=== PATIENT | male | born 1935 | race African-American/Black ===

== ENCOUNTER 2017-08-19 14:47 | Emergency (ER) | payer MEDICARE, OTHER ==
--- NOTE | 2017-08-19 15:27 | ER Document Report ---
ED General - General Mode of Arrival: Ambulatory Information source: Patient TRAVEL OUTSIDE OF THE [place] IN LAST 30 DAYS: No <GALLITO RAMON - Last Filed: 08/19/17 16:37> <ANDRES GREENWOOD - Last Filed: 08/19/17 17:31> - General Chief Complaint: Low Blood Pressure Stated Complaint: WEAKNESS Notes: 82-year-old male presenting to the emergency department today with complaints of possible low blood pressure today taken by PT/OT. Patient states he feels fine and is asymptomatic. [id number] at bedside states that physical therapy and occupational therapy today both stated the patient had a low blood pressure and low blood sugar. Patient denies any chest pain, dysuria, cough, or general pain.f (GALLITO RAMON) - Related Data Allergies/Adverse Reactions: aspirin [Aspirin] Allergy (Unknown, Unverified 07/16/12 10:57) Past Medical History - General Information source: Patient - Social History Smoking Status: Never Smoker Cigarette use (# per day): No Chew tobacco use (# tins/day): No Frequency of alcohol use: None Drug Abuse: None Lives with: Family Family History: Reviewed & Not Pertinent Patient has suicidal ideation: No Patient has homicidal ideation: No - Past Medical History Cardiac Medical History: Reports: Hx Hypercholesterolemia, Hx Hypertension Endocrine Medical History: Reports: Hx Diabetes Mellitus Type 2 Psychiatric Medical History: Reports: Hx Depression Surgical Hx: Negative <GALLITO RAMON - Last Filed: 08/19/17 16:37> Review of Systems - Review of Systems Constitutional: No symptoms reported EENT: No symptoms reported Cardiovascular: See HPI, Other - hypotensive. denies: Chest pain Respiratory: denies: Cough Gastrointestinal: No symptoms reported Genitourinary: denies: Dysuria Male Genitourinary: No symptoms reported Musculoskeletal: No symptoms reported Skin: No symptoms reported Hematologic/Lymphatic: No symptoms reported Neurological/Psychological: No symptoms reported -: Yes All other systems reviewed and negative <GALLITO RAMON - Last Filed: 08/19/17 16:37> Physical Exam <GALLITO RAMON - Last Filed: 08/19/17 16:37> <ANDRES GREENWOOD - Last Filed: 08/19/17 17:31> - Vital signs Vitals: Resp BP Pulse Ox 12 107/61 99 08/19/17 14:51 08/19/17 14:51 08/19/17 14:51 - Notes Notes: Physical Exam: General: Alert, appears well. HEENT: Normocephalic. Atraumatic. PERRL. Extraocular movements intact. Oropharynx clear. Dry mucous membranes. Neck: Supple. Non-tender. Respiratory: No respiratory distress. Clear and equal breath sounds bilaterally. Cardiovascular: Regular rate and rhythm. Abdominal: Normal Inspection. Non-tender. No distension. Normal Bowel Sounds. Back: Non-tender. No deformity or step off. Extremities: Moves all four extremities. Upper extremities: Normal inspection. Normal ROM. Lower extremities: Normal inspection. No edema. Normal ROM. Neurological: Normal cognition. AAOx4. Normal speech. Psychological: Normal affect. Normal Mood. Skin: Warm. Dry. Normal color. (GALLITO RAMON) Course - Laboratory Result Diagrams: 08/19/17 14:30 08/19/17 14:30 <GALLITO RAMON - Last Filed: 08/19/17 16:37> - Laboratory Result Diagrams: 08/19/17 14:30 08/19/17 14:30 - EKG Interpretation by Fl EKG shows normal: Sinus rhythm Rate: Normal [place]/QRS: Left axis deviation Voltage: Decreased voltage When compared to previous EKG there are: Changes noted <ANDRES GREENWOOD - Last Filed: 08/19/17 17:31> - Re-evaluation Re-evalutation: 08/19/17 15:28 Well-appearing alert oriented and mental baseline per yjcegzuc-vu-vux at bedside. No recent illnesses denies any dizziness headache chest pain cough congestion abdominal pain dysuria numbness or tingling or weakness of upper lower extremities with sent who performs PTOT at his house weekly due to low blood pressure. In the emergency department he is not hypotensive. His membranes fluid bolus in progress. Will medically screen patient at this time. Will consider discharge if no acute abnormalities found. 08/19/17 17:27 Patient exam shows no acute abnormalities. He is able to ambulate without issue. His blood pressure is improved to 122/66 prior to discharge after fluid administration. Patient states that he wants to go home. I discussed with him and his son at bedside the need to stay hydrated especially during the hot summer months. Patient understands and agrees with plan. 08/19/17 17:29 Of note, patient did have nonspecific ST-T wave abnormality but this is from compared to EKG from 4 years ago. I discussed with patient and family need to follow-up with her family doctor for further evaluation. Patient exhibited no chest pain at this time no shortness of breath. Changes are comparison from 4 years ago. (ANDRES GREENWOOD) - Vital Signs Vital signs: Temp Pulse Resp BP Pulse Ox 97.6 F 18 105/54 L 99 08/19/17 15:04 08/19/17 16:16 08/19/17 16:16 08/19/17 16:16 - Laboratory Laboratory results interpreted by me: 08/19/17 08/19/17 08/19/17 14:30 14:30 16:22 RBC 3.88 L Hgb 12.9 L MCV 100 H Carbon Dioxide 19 L Est GFR (Non-Af Amer) 56 L Glucose 157 H ALT 12 L Urine Glucose (UA) 50 H Urine Blood SMALL H - EKG Interpretation by Me Additional EKG results interpreted by me: 08/19/17 17:[address]-T wave abnormalities when compared to EKG from August 03, 2013 ( ANDRES GREENWOOD) Discharge <GALLITO RAMON - Last Filed: 08/19/17 16:37> <ANDRES GREENWOOD - Last Filed: 08/19/17 17:31> - Discharge Clinical Impression: Dehydration Condition: Good Disposition: HOME, SELF-CARE Instructions: Dehydration ([facility]), Electrogram Abnormality ([facility]) Referrals: MARLEN DENTON MD [Primary Care Provider] - Follow up in 1 week (For reevaluation. Let them know that your EKG had some changes from prior 4 years ago) Scribe Attestation: 08/19/17 16:37 I personally performed the services described in the documentation, reviewed and edited the documentation which was dictated to the scribe in my presence, and it accurately records my words and actions. (GALLITO RAMON) Scribe Documentation - Scribe Written by Alexe:: Mary aJne Mendieta, 08/19/2017 1616 acting as scribe for :: Richard <GALLITO RAMON - Last Filed: 08/19/17 16:37>
[2017-08-19 15:34] LABS: ABSOLUTE EOSINOPHILS # (AUTO) 0.2 10^3/uL (0.0-0.6); ABSOLUTE LYMPHOCYTES (AUTO) 1.9 10^3/uL (0.5-4.7); ABSOLUTE MONOCYTES (AUTO) 0.7 10^3/uL (0.1-1.4); ABSOLUTE NEUT (AUTO) 3.2 10^3/uL (1.7-8.2); BASOPHILS % (AUTO) 0.8 % (0-2); HEMATOCRIT 38.7 % (37.9-51.0); HEMOGLOBIN 12.9 g/dL (13.5-17.0); LYMPHOCYTES % (AUTO) 31.9 % (13-45); MEAN CORPUSCULAR HEMOGLOBIN 33.2 pg (27.0-33.4); MEAN CORPUSCULAR HGB CONC 33.2 g/dL (32.0-36.0); MEAN CORPUSCULAR VOLUME 100 fl (80-97); MONOCYTES % (AUTO) 11.8 % (3-13); PLATELET COUNT 264 10^3/uL (150-450); RED BLOOD COUNT 3.88 10^6/uL (4.35-5.55); RED CELL DISTRIBUTION WIDTH 12.9 % (11.5-14.0); SEGMENTED NEUTROPHILS % (AUTO) 52.5 % (42-78); TOTAL CELLS COUNTED % (AUTO) 100 %
[2017-08-19 15:40] LABS: INTERNATIONAL RATION (INR) 1.06; PROTHROMBIN TIME 14.3 SEC (11.4-15.4)
[2017-08-19 16:03] LABS: ALANINE AMINOTRANSFERASE 12 U/L (21-72); ALBUMIN 3.5 g/dL (3.5-5.0); ALKALINE PHOSPHATASE 69 U/L (38-126); ANION GAP 14 (5-19); ASPARTATE AMINO TRANSFERASE 17 U/L (17-59); BILIRUBIN,DIRECT 0.3 mg/dL (0.0-0.4); BILIRUBIN,TOTAL 0.3 mg/dL (0.2-1.3); BLOOD UREA NITROGEN 12 mg/dL (7-20); CALCIUM 9.2 mg/dL (8.4-10.2); CARBON DIOXIDE 19 mmol/L (22-30); CHLORIDE 107 mmol/L (98-107); GLUCOSE 157 mg/dL (75-110); POTASSIUM 4.5 mmol/L (3.6-5.0); SODIUM 139.6 mmol/L (137-145); TOTAL PROTEIN 6.4 g/dL (6.3-8.2)
[2017-08-19 16:50] LABS: APPEARANCE,URINE CLEAR; BILIRUBIN,URINE NEGATIVE (NEGATIVE); COLOR,URINE YELLOW; GLUCOSE, URINE 50 mg/dL (NEGATIVE); KETONES,URINE NEGATIVE (NEGATIVE); LEUKOCYTE ESTERASE,URINE NEGATIVE (NEGATIVE); NITRITE,URINE NEGATIVE (NEGATIVE); PROTEIN,URINE NEGATIVE (NEGATIVE); URINE SPECIFIC GRAVITY 1.009; UROBILINOGEN,URINE NEGATIVE mg/dL (<2.0)
[2017-08-19 17:28] VITALS: BP 122/66
--- NOTE | 2017-08-20 06:09 | EKG REPORT ---
SEVERITY:- ABNORMAL ECG - SINUS RHYTHM FIRST DEGREE AV BLOCK INFERIOR INFARCT, AGE INDETERMINATE OLD TRUE POST MS : Confirmed by: Yoel Cardenas MD 20-Aug-2017 06:08:48
== END 2017-08-19 17:39 | disposition home or self-care (01) ==
LOC: ER 14:47
DX: E86.0 Dehydration (principal); E11.9 Type 2 diabetes mellitus without complications; I10 Essential (primary) hypertension; R94.31 Abnormal electrocardiogram [ECG] [EKG]; Z88.6 Allergy status to analgesic agent
CPT/HCPCS: 36415; 80053; 81001; 83735; 84484; 85025; 85610; 93005; 93010; 99285

== ENCOUNTER → 2018-05-01 | Outpatient (CLI) | payer MEDICARE, OTHER ==
--- NOTE | 2018-05-01 18:49 | RADIOLOGY REPORT (SQ) ---
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 TECHNIQUE: Multiplanar imaging includes non-contrasted T1, T2, FLAIR, and diffusion with ADC map seq uences. Images stored on PACS. LIMITATIONS: None. FINDINGS: ANATOMY: No anomalies. Normal vascular flow voids. Pituitary fossa normal. CSF SPACES: Normal in size and contour. No hemorrhage. CEREBRUM: Mild cortical atrophy. There are areas of increased white matter signal on FLAIR imaging. No evidence of hemorrhage, mass, or extraaxial fluid collection. POSTERIOR FOSSA: No signal alteration. No hemorrhage. No edema, masses or mass effect. Internal jazmin tory canals, cerebello-pontine angles, mastoids normal. DIFFUSION IMAGING: Negative for acute or sub-acute infarction. ORBITS: No masses. Globes normal. PARANASAL SINUSES: No fluid levels. Mucosa normal. OTHER: No other significant finding. IMPRESSION: Involutional changes of aging with chronic microvascular ischemia and with no acute intr acranial imaging findings. EVIDENCE OF ACUTE STROKE: NO. TECHNICAL DOCUMENTATION: JOB ID: [id number] [employer]- All Rights Reserved Reading location - IP/workstation name: [email or web address]
== END ==
LOC: RAD 16:57
PROVIDERS: ATTEND Internal Medicine
DX: G46.3 Brain stem stroke syndrome (principal)
CPT/HCPCS: 70551

== ENCOUNTER → 2019-07-09 | Outpatient (CLI) | payer MEDICARE ==
--- NOTE | 2019-07-09 17:55 | RADIOLOGY REPORT (SQ) ---
EXAM DESCRIPTION: CT ABD/PELVIS NO ORAL OR IV IMAGES COMPLETED DATE/TIME: 07/09/2019 5:44 pm REASON FOR STUDY: R10.11 RIGHT UPPER QUADRANT PAIN R10.11 RIGHT UPPER QUADRANT PAIN COMPARISON: 07/10/2012 TECHNIQUE: CT scan of the abdomen and pelvis performed without intravenous or oral contrast. Images reviewed with lung, soft tissue, and bone windows. Reconstructed coronal and sagittal MPR images revi ewed. All images stored on PACS. All CT scanners at this facility use dose modulation, iterative reconstruction, and/or weight based d osing when appropriate to reduce radiation dose to as low as reasonably achievable (ALARA). [facility]: Dose Right [facility]: CareDose [facility]: Dose Right [facility]: Teradose 4D [facility]: Smart TellFi RADIATION DOSE: mGy. LIMITATIONS: None. FINDINGS: LOWER CHEST: Limited images through the right lower lobe demonstrate an at least 3.1 cm ma ss in the right hilar region. CT of the chest is recommended for further evaluation. NON-CONTRASTED LIVER, SPLEEN, ADRENALS: No focal hepatic or splenic lesions. Stable bilateral adrena l fullness most likely hyperplasia. PANCREAS: No masses. No peripancreatic inflammatory changes. GALLBLADDER: No identified stones by CT criteria. No inflammatory changes to suggest cholecystitis. RIGHT KIDNEY AND URETER: No suspicious masses. Assessment limited by lack of IV contrast. No signif icant calcifications. No hydronephrosis or hydroureter. LEFT KIDNEY AND URETER: No suspicious masses. Assessment limited by lack of IV contrast. No signifi cant calcifications. No hydronephrosis or hydroureter. AORTA AND RETROPERITONEUM: Atherosclerotic change. No aneurysmal dilatation. BOWEL AND PERITONEAL CAVITY: Postsurgical changes with suture line noted in the right lower quadrant. Scattered diverticuli. No acute diverticulitis. Moderate amount of stool in the colon. No bowel wall thickening. No obstruction. APPENDIX: Not visualized. PELVIS, BLADDER, AND ABDOMINAL WALL:No abnormal masses. No free fluid. Bladder normal. BONES: No significant findings. OTHER: No other significant finding. IMPRESSION: 1. Right lower lobe lung mass. Recommend CT of the chest for further evaluation. 2. Moderate constipation. No other acute findings in the abdomen or pelvis. COMMENT: Quality ID # 436: Final reports with documentation of one or more dose reduction techniques (e.g., Automated exposure control, adjustment of the mA and/or kV according to patient size, use of iterative reconstruction technique) TECHNICAL DOCUMENTATION: JOB ID: [id number] 2010 [employer]- All Rights Reserved Reading location - IP/workstation name: [email or web address]
== END ==
LOC: RAD 17:19
PROVIDERS: ATTEND Internal Medicine
DX: K59.00 Constipation, unspecified (principal); R10.11 Right upper quadrant pain; R91.8 Other nonspecific abnormal finding of lung field
CPT/HCPCS: 74176

== ENCOUNTER 2019-07-10 09:50 | Observation (INO) | payer MEDICARE, OTHER ==
[2019-07-10] MEDS ORDERED: NORMAL SALINE 1000 ML 1,000 ML IV PRN (11:17)
[2019-07-10] MEDS ORDERED: DEXTROSE 40% GEL 15 GM TUBE PO PRN (11:30)
[2019-07-10] MEDS ORDERED: GLUCAGON,HUMAN RECOMB 1 MG INJ IM PRN (11:30)
[2019-07-10] MEDS ORDERED: DEXTROSE 50%-WATER SYRINGE 12.5 GM/25 ML DOSE IV PRN (11:30)
[2019-07-10] MEDS ORDERED: DEXTROSE 50%-WATER SYRINGE 25 GM/50 ML DOSE IV PRN (11:30)
[2019-07-10] MEDS ORDERED: DEXTROSE 40% GEL 15 GM TUBE X 2 PO PRN (11:30)
[2019-07-10 12:12] LABS: ABSOLUTE BASOPHILS # (AUTO) 0.1 10^3/uL (0.0-0.2); ABSOLUTE EOSINOPHILS # (AUTO) 0.1 10^3/uL (0.0-0.6); ABSOLUTE LYMPHOCYTES (AUTO) 1.3 10^3/uL (0.5-4.7); ABSOLUTE NEUT (AUTO) 5.6 10^3/uL (1.7-8.2); BASOPHILS % (AUTO) 0.9 % (0-2); EOSINOPHILS % (AUTO) 0.8 % (0-6); HEMOGLOBIN 12.7 g/dL (13.5-17.0); LYMPHOCYTES % (AUTO) 16.1 % (13-45); MEAN CORPUSCULAR HEMOGLOBIN 30.6 pg (27.0-33.4); MEAN CORPUSCULAR HGB CONC 34.3 g/dL (32.0-36.0); MEAN CORPUSCULAR VOLUME 89 fl (80-97); MONOCYTES % (AUTO) 12.6 % (3-13); PLATELET COUNT 316 10^3/uL (150-450); RED BLOOD COUNT 4.16 10^6/uL (4.35-5.55); RED CELL DISTRIBUTION WIDTH 13.3 % (11.5-14.0); SEGMENTED NEUTROPHILS % (AUTO) 69.6 % (42-78); TOTAL CELLS COUNTED % (AUTO) 100 %
--- NOTE | 2019-07-10 12:21 | RADIOLOGY REPORT (SQ) ---
EXAM DESCRIPTION: U/S RETROPERITON (RENAL/AORTA) IMAGES COMPLETED DATE/TIME: 07/10/2019 12:13 pm REASON FOR STUDY: kidney injury COMPARISON: None. TECHNIQUE: Dynamic and static grayscale images acquired of the kidneys and bladder and recorded on P ACS. Additional selected color Doppler and spectral images recorded. LIMITATIONS: None. FINDINGS: RIGHT KIDNEY: Normal size. Normal echogenicity. No solid or suspicious masses. No hydronep hrosis. No calcifications. LEFT KIDNEY: Normal size. Normal echogenicity. No solid or suspicious masses. No hydronephrosis. No calcifications. BLADDER: No masses. OTHER FINDINGS: CT man IMPRESSION: NORMAL RENAL AND BLADDER ULTRASOUND. TECHNICAL DOCUMENTATION: JOB ID: [id number] 2010 [employer]- All Rights Reserved Reading location - IP/workstation name: [email or web address]
[2019-07-10 12:46] LABS: ALBUMIN 3.5 g/dL (3.5-5.0); ALKALINE PHOSPHATASE 87 U/L (38-126); ANION GAP 10 (5-19); ASPARTATE AMINO TRANSFERASE 13 U/L (17-59); BILIRUBIN,TOTAL 0.4 mg/dL (0.2-1.3); BLOOD UREA NITROGEN 21 mg/dL (7-20); CALCIUM 8.9 mg/dL (8.4-10.2); CARBON DIOXIDE 22 mmol/L (22-30); CHLORIDE 100 mmol/L (98-107); GLUCOSE 122 mg/dL (75-110); POTASSIUM 4.6 mmol/L (3.6-5.0); TOTAL PROTEIN 6.6 g/dL (6.3-8.2)
[2019-07-10 13:01] LABS: APPEARANCE,URINE SLIGHTLY-CLOUDY; BILIRUBIN,URINE NEGATIVE (NEGATIVE); COLOR,URINE YELLOW; GLUCOSE, URINE >=500 mg/dL (NEGATIVE); KETONES,URINE TRACE mg/dL (NEGATIVE); LEUKOCYTE ESTERASE,URINE MODERATE (NEGATIVE); NITRITE,URINE NEGATIVE (NEGATIVE); PROTEIN,URINE NEGATIVE (NEGATIVE); URINE SPECIFIC GRAVITY 1.023; UROBILINOGEN,URINE NEGATIVE mg/dL (<2.0)
[2019-07-10] MEDS ORDERED: TRAMADOL HCL 50 MG TABLET PO PRN (13:48)
[2019-07-10] MEDS ORDERED: (PENDING PHARMACY ID) (Dapagliflozin Propanediol [Farxiga] 10 MG) PO SCH (14:00)
[2019-07-10] MEDS ORDERED: (PENDING PHARMACY ID) (Citalopram Hydrobromide [Celexa 40 Mg Tablet] 40 MG) PO SCH (14:00)
[2019-07-10] MEDS: NORMAL SALINE 1000 ML 1,000 ML IV PRN (14:08)
--- NOTE | 2019-07-10 15:31 | RADIOLOGY REPORT (SQ) ---
EXAM DESCRIPTION: CT CHEST WITH IMAGES COMPLETED DATE/TIME: 07/10/2019 3:17 pm REASON FOR STUDY: lung mass COMPARISON: CT abdomen dated 07/09/[address] chest dated 07/10/2012 TECHNIQUE: CT scan of the chest performed using helical scanning technique with dynamic intravenous contrast injection. Images reviewed with lung, soft tissue and bone windows. Reconstructed coronal and sagittal MPR and MIP images reviewed. All images stored on PACS. All CT scanners at this facility use dose modulation, iterative reconstruction, and/or weight based d osing when appropriate to reduce radiation dose to as low as reasonably achievable (ALARA). [facility]: Dose Right [facility]: CareDose [facility]: Dose Right [facility]: Teradose 4D [facility]: [employer] CONTRAST TYPE AND DOSE: contrast/concentration: Isovue 350.00 mg/ml; Total Contrast Delivered: 80.0 ml; Total Saline Delivered: 55.0 ml RENAL FUNCTION: BUN 21, creatinine 1.17 RADIATION DOSE: CT Rad equipment meets quality standard of care and radiation dose reduction techniq ues were employed. CTDIvol: 7.7 mGy. DLP: 324 mGy-cm. . LIMITATIONS: None. FINDINGS: LUNGS AND PLEURA: The right perihilar mass demonstrated on yesterday CT abdomen pelvis bharti sures 4.3 x 2.7 cm in greatest dimensions. It is spiculated. There is decreased attenuation central ly consistent with necrosis. There are subpleural opacities in the right lung base these are nonspec ific and could represent focal airspace disease or atelectasis. Metastatic disease is thought to be less likely but not excluded. HILAR AND MEDIASTINAL STRUCTURES: No identified masses or abnormal nodes. HEART AND VASCULAR STRUCTURES: No aneurysm or dissection. No central pulmonary emboli. No pericardi al effusion. HARDWARE: None in the chest. UPPER ABDOMEN: No significant findings. Limited exam. THYROID AND OTHER SOFT TISSUES: No masses. No adenopathy. BONES: No significant finding. OTHER: No other significant finding. IMPRESSION: Right perihilar mass measured at 4.3 x 2.7 cm. Additional right-sided subpleural ground -glass opacities. These are nonspecific. Correlation with bronchoscopy is recommended. TECHNICAL DOCUMENTATION: JOB ID: [id number] Quality ID # [id number]: Final reports with documentation of one or more dose reduction techniques (e.g., Au tomated exposure control, adjustment of the mA and/or kV according to patient size, use of iterative reconstruction technique) 2010 [employer]- All Rights Reserved Reading location - IP/workstation name: [email or web address]
[2019-07-10] MEDS: INSULIN LISPRO 100 UNIT/ML 3 ML VIAL SUBCUT SCH ×2 (16:56→21:57)
[2019-07-10] MEDS: CITALOPRAM HYDROBROMIDE 20 MG TABLET PO SCH (16:59)
[2019-07-10] MEDS: FINASTERIDE 5 MG TABLET PO SCH (16:59)
--- NOTE | 2019-07-10 18:48 | EKG REPORT ---
SEVERITY:- ABNORMAL ECG - SINUS RHYTHM LOW VOLTAGE THROUGHOUT CONSIDER INFERIOR INFARCT NONSPECIFIC T ABNORMALITIES, LATERAL LEADS : Confirmed by: Zuleika Gustafson MD 10-Jul-2019 18:48:06
--- NOTE | 2019-07-10 20:19 | PDOC H&P ---
History of Present Illness Admission Date/PCP: 07/10/19 09:50 [place] ARIAS History of Present Illness: CORA GARCIA SR is a 83 year old male,He has multiple comorbid conditions inc luding atherosclerotic heart disease, COPD, lifelong tobacco abuse, he came to the office yesterday afternoon for evaluation of right upper quadrant abdominal pain. CAT scan of the abdomen and pelvis with no contrast was ordered partly for the evaluation of the abdominal pain, it demonstrated a mass in the right ilium, CT chest was recommended for further evaluation.The last comprehensive metabolic blood test that was done in the office revealed elevated serum creatinine, with that knowledge I felt patient needed to be admitted into the hospital for hydration before CT scan of the chest with contrast was ordered for further evaluation and definition of the mass that was found in the chest i ncidentally when CAT scan of the abdomen and pelvis was obtained.But the blood work that was done demonstrated normal serum creatinine so patient was hydrated with fluid and CT chest with contrast was ordered, it demonstrated a right perihilar mass that measures 4.3 x 2.7 cm in greatest dimension it is spiculated. There is decreased attenuation centrally consistent with necrosis. There is subpleural opacities in the right lung base. The findings of the CAT scan was discussed with patient's family and also the patient. He will need tissue biopsy of this mass for definitive diagnosis. The mass is in the hilum, the mass is best to reach with a bronchoscopy but unfortunately there is no pul monary qa consultant at this time, I will consult with interventional radiologist if it is possible to have a CT-guided needle biopsy. Past Medical History Cardiac Medical History: Reports: Coronary Artery Disease, Hyperlipidema, Hypertension, Peripheral Vascular Disease Endocrine Medical History: Reports: Diabetes Mellitus Type 2 Psychiatric Medical History: Reports: Depression Past Surgical History Past Surgical History: Reports: Coronary Stent Social History Smoking Status: Current Every Day Smoker Frequency of Alcohol Use: None Hx Recreational Drug Use: No Drugs: None Hx Prescription Drug Abuse: No Family History Family History: Reviewed & Not Pertinent Parental Family History Reviewed: Yes Children Family History Reviewed: Yes Sibling(s) Family History Reviewed.: Yes Medication/Allergy Home Medications: RX: Citalopram Hydrobromide [Celexa 40 mg Tablet] 40 mg PO DAILY 07/16/12 RX: Clopidogrel Bisulfate [Plavix 75 mg Tablet] 75 mg PO DAILY 07/16/12 RX: Simvastatin [Zocor 20 mg Tablet] 20 mg PO QHS 07/16/12 RX: Tamsulosin HCl [Flomax] 0.4 mg PO DAILY 08/03/13 Cyanocobalamin (Vitamin B-12) [Vitamin B-12 Inj 1000 Mcg/1 ml Vial] 1,000 mcg IM SA@1000 07/10/19 Dapagliflozin Propanediol [Farxiga] 10 mg PO DAILY 07/10/19 Finasteride [Proscar 5 mg Tablet] 5 mg PO DAILY 07/10/19 Insulin Aspart [Novolog] 10 unit SQ BID 07/10/19 Insulin Glargine,Hum.rec.anlog [Lantus Insulin 100 Unit/1 ml 10 ml] 30 unit SUBCUT QHS 07/10/19 Tramadol HCl [Ultram 50 mg Tablet] 50 mg PO DAILYP PRN 07/10/19 Allergies/Adverse Reactions: aspirin [Aspirin] Allergy (Unknown, Unverified 07/16/12 10:57) Review of Systems Constitutional: ABSENT: chills, fever(s), headache(s), weight gain, weight loss Eyes: ABSENT: visual disturbances Ears: ABSENT: hearing changes Cardiovascular: PRESENT: chest pain. ABSENT: dyspnea on exertion, edema, orthropnea, palpitations Respiratory: ABSENT: cough, hemoptysis Gastrointestinal: PRESENT: abdominal pain. ABSENT: constipation, diarrhea, hematemesis, hematochezia, nausea, vomiting Genitourinary: ABSENT: dysuria, hematuria Musculoskeletal: ABSENT: joint swelling Integumentary: ABSENT: rash, wounds Neurological: ABSENT: abnormal gait, abnormal speech, confusion, dizziness, focal weakness, syncope Psychiatric: ABSENT: anxiety, depression, homidical ideation, suicidal ideation Endocrine: ABSENT: cold intolerance, heat intolerance, menstrual abnormalities, polydipsia, polyuria Hematologic/Lymphatic: ABSENT: easy bleeding, easy bruising, lymphadenopathy Physical Exam Vital Signs: Temp Pulse Resp BP Pulse Ox 98.2 F 76 16 97/53 L 100 07/10/19 16:53 07/10/19 16:53 07/10/19 16:53 07/10/19 16:53 07/10/19 16:53 Intake & Output 07/09/19 07/10/19 07/11/19 06:59 06:59 06:59 Intake Total 2252 Output Total 400 Balance 1852 Weight 67.1 kg General appearance: PRESENT: no acute distress, well-developed, well-nourished Head exam: PRESENT: atraumatic, normocephalic Eye exam: PRESENT: conjunctiva pink, EOMI, PERRLA Ear exam: PRESENT: normal external ear exam Mouth exam: PRESENT: moist, tongue midline Neck exam: PRESENT: full ROM Respiratory exam: PRESENT: clear to auscultation keegan Cardiovascular exam: PRESENT: RRR, +S1, +S2 Pulses: PRESENT: normal dorsalis pedis pul, +2 pedal pulses bilateral Vascular exam: PRESENT: normal capillary refill GI/Abdominal exam: PRESENT: normal bowel sounds, soft Rectal exam: PRESENT: deferred Neurological exam: PRESENT: alert, CN II-XII grossly intact Psychiatric exam: PRESENT: appropriate affect, normal mood Skin exam: PRESENT: dry, intact, warm Results Laboratory Results: 07/10/19 11:37 07/10/19 11:37 07/10/19 07/10/19 07/10/19 11:37 11:37 12:42 WBC 8.0 RBC 4.16 L Hgb 12.7 L Hct 37.0 L MCV 89 MCH 30.6 MCHC 34.3 RDW 13.3 Plt Count 316 Seg Neutrophils % 69.6 Sodium 132.4 L Potassium 4.6 Chloride 100 Carbon Dioxide 22 Anion Gap 10 BUN 21 H Creatinine 1.17 Est GFR ( Amer) > 60 Glucose 122 H Calcium 8.9 Total Bilirubin 0.4 AST 13 L Alkaline Phosphatase 87 Total Protein 6.6 Albumin 3.5 Urine Color YELLOW Urine Appearance SLIGHTLY-CLOUDY Urine pH 5.0 Ur Specific [place] 1.023 Urine Protein NEGATIVE Urine Glucose (UA) >=500 H Urine Ketones TRACE H Urine Blood MODERATE H Urine Nitrite NEGATIVE Ur Leukocyte Esterase MODERATE H Urine WBC (Auto) 96 Urine RBC (Auto) 2 Impressions: Chest CT 07/10/19 00:00 IMPRESSION: Right perihilar mass measured at 4.3 x 2.7 cm. Additional right- sided subpleural ground-glass opacities. These are nonspecific. Correlation with bronchoscopy is recommended. Renal Ultrasound 07/10/19 00:00 IMPRESSION: NORMAL RENAL AND BLADDER ULTRASOUND. 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 transplanted heart: [place] heart Associated angina: without angina Qualified Code(s): I25.10 - Atherosclerotic heart disease of [place] coronary artery without angina pectoris Is this a current diagnosis for this admission?: Yes (4) Type 2 diabetes mellitus Qualifiers: Diabetes mellitus fci insulin use: with fci use Diabetes mellitus complication status: with neurologic complications Diabetes mellitus complication detail: with polyneuropathy Qualified Code(s): E11.42 - Type 2 diabetes mellitus with diabetic polyneuropathy; Z79.4 - snf (current) use of insulin Is this a current diagnosis for this admission?: Yes
[2019-07-10 20:56] LABS: INTERNATIONAL RATION (INR) 1.13; PROTHROMBIN TIME 14.5 SEC (11.4-15.4)
[2019-07-10 20:57] LABS: PARTIAL THROMBOPLASTIN TIME 34.9 SEC (23.5-35.8)
[2019-07-10] MEDS ORDERED: INSULIN GLARGINE,HUM.REC.ANLOG 1,000 UNIT/10 ML VIAL SUBCUT SCH (22:00)
[2019-07-10] MEDS ORDERED: SIMVASTATIN 10 MG TABLET PO SCH (22:00)
[2019-07-10] MEDS: NICOTINE 21 MG/24 HR PATCH.TD24 TD SCH (22:01)
[2019-07-11] MEDS: INSULIN LISPRO 100 UNIT/ML 3 ML VIAL SUBCUT SCH ×2 (08:41→12:21)
[2019-07-11] MEDS: FINASTERIDE 5 MG TABLET PO SCH (09:33)
[2019-07-11] MEDS: CITALOPRAM HYDROBROMIDE 20 MG TABLET PO SCH (09:33)
[2019-07-11] MEDS: NICOTINE 21 MG/24 HR PATCH.TD24 TD SCH (09:34)
[2019-07-11] MEDS ORDERED: CYANOCOBALAMIN (VITAMIN B-12) INJ 1000 MCG/1 ML VIAL IM SCH (10:00)
[2019-07-11] MEDS: NORMAL SALINE 1000 ML 1,000 ML IV PRN (12:18)
[2019-07-11 13:16] VITALS: BP 116/63
--- NOTE | 2019-07-11 13:18 | PDOC DISCHARGE SUMMARY ---
Impression - Admit/DC Date/PCP Admission Date/Primary Care Provider: 07/10/19 09:50 GEORGIA ARIAS Discharge Date: 07/11/19 - Discharge Diagnosis (1) Neoplasm of hilus of right lung Is this a current diagnosis for this admission?: Yes (2) Nicotine dependence, cigarettes, uncomplicated Is this a current diagnosis for this admission?: Yes (3) Coronary artery disease Is this a current diagnosis for this admission?: Yes (4) Type 2 diabetes mellitus Is this a current diagnosis for this admission?: Yes - Additional Information Referrals: ALISON SEALS PA [Primary Care Provider] - Home Medications: Citalopram Hydrobromide [Celexa 40 mg Tablet] 40 mg PO DAILY 07/16/12 Clopidogrel Bisulfate [Plavix 75 mg Tablet] 75 mg PO DAILY 07/16/12 Simvastatin [Zocor 20 mg Tablet] 20 mg PO QHS 07/16/12 Tamsulosin HCl [Flomax] 0.4 mg PO DAILY 08/03/13 Cyanocobalamin (Vitamin B-12) [Vitamin B-12 Inj 1000 Mcg/1 ml Vial] 1,000 mcg IM SA@1000 07/10/19 Dapagliflozin Propanediol [Farxiga] 10 mg PO DAILY 07/10/19 Finasteride [Proscar 5 mg Tablet] 5 mg PO DAILY 07/10/19 Insulin Aspart [Novolog] 10 unit SQ BID 07/10/19 Insulin Glargine,Hum.rec.anlog [Lantus Insulin 100 Unit/1 ml 10 ml] 30 unit SUBCUT QHS 07/10/19 Tramadol HCl [Ultram 50 mg Tablet] 50 mg PO DAILYP PRN 07/10/19 History of Present Illiness History of Present Illness: CORA GARCIA SR is a 83 year old male,He has multiple comorbid conditions including atherosclerotic heart disease, COPD, lifelong tobacco abuse, he came to the office yesterday afternoon for evaluation of right upper quadrant abdom inal pain. CAT scan of the abdomen and pelvis with no contrast was ordered partly for the evaluation of the abdominal pain, it demonstrated a mass in the right ilium, CT chest was recommended for further evaluation.The last comprehensive metabolic blood test that was done in the office revealed elevated serum creatinine, with that knowledge I felt patient needed to be admitted into the hospital for hydration before CT scan of the chest with contrast was ordered for further evaluation and definition of the mass that was found in the chest incidentally when CAT scan of the abdomen and pelvis was obtained.But the blood work that was done demonstrated normal serum creatinine so patient was hydrated with fluid and CT chest with contrast was ordered, it demonstrated a right perihilar mass that measures 4.3 x 2.7 cm in greatest dimension it is spiculated. There is decreased attenuation centrally consistent with necrosis. There is subpleural opacities in the right lung base. The findings of the CAT scan was discussed with patient's family and also the patient. He will need tissue biopsy of this mass for definitive diagnosis. The mass is in the hilum, the mass is best to reach with a bronchoscopy but unfortunately there is no pulmonary construction or leak gang laborer at this time, I will consult with interventional radiologist if it is possible to have a CT-guided needle biopsy. Hospital Course Hospital Course: Patient was admitted for the management of right hilar lung mass, patient needed tissue biopsy to make a definitive diagnosis, unfortunately CT-guided needle biopsy of the mass cannot be done today because it is , it is considered a holiday. He will be discharged home today for outpatient biopsy. This was explained to the patient and the family Physical Exam Vital Signs: Temp Pulse Resp BP Pulse Ox 97.6 F 71 19 114/68 100 07/11/19 08:17 07/11/19 08:17 07/11/19 08:17 07/11/19 08:17 07/11/19 08:17 Intake & Output 07/10/19 07/11/19 07/12/19 06:59 06:59 06:59 Intake Total 2963 Output Total 950 2012 Weight 67.1 kg General appearance: PRESENT: no acute distress Eye exam: PRESENT: PERRLA Respiratory exam: PRESENT: clear to auscultation keegan Cardiovascular exam: PRESENT: +S1, +S2 GI/Abdominal exam: PRESENT: soft Neurological exam: PRESENT: alert, CN II-XII grossly intact Results Laboratory Results: WBC 8.0 10^3/uL (4.0-10.5) 07/10/19 11:37 RBC 4.16 10^6/uL (4.35-5.55) L 07/10/19 11:37 Hgb 12.7 g/dL (13.5-17.0) L 07/10/19 11:37 Hct 37.0 % (37.9-51.0) L 07/10/19 11:37 MCV 89 fl (80-97) 07/10/19 11:37 MCH 30.6 pg (27.0-33.4) 07/10/19 11:37 MCHC 34.3 g/dL (32.0-36.0) 07/10/19 11:37 RDW 13.3 % (11.5-14.0) 07/10/19 11:37 Plt Count 316 10^3/uL (150-450) 07/10/19 11:37 Lymph % (Auto) 16.1 % (13-45) 07/10/19 11:37 [place] % (Auto) 12.6 % (3-13) 07/10/19 11:37 Eos % (Auto) 0.8 % (0-6) 07/10/19 11:37 Baso % (Auto) 0.9 % (0-2) 07/10/19 11:37 Absolute Neuts (auto) 5.6 10^3/uL (1.7-8.2) 07/10/19 11:37 Absolute Lymphs (auto) 1.3 10^3/uL (0.5-4.7) 07/10/19 11:37 Absolute Monos (auto) 1.0 10^3/uL (0.1-1.4) 07/10/19 11:37 Absolute Eos (auto) 0.1 10^3/uL (0.0-0.6) 07/10/19 11:37 Absolute Basos (auto) 0.1 10^3/uL (0.0-0.2) 07/10/19 11:37 Seg Neutrophils % 69.6 % (42-78) 07/10/19 11:37 PT 14.5 SEC (11.4-15.4) 07/10/19 20:36 INR 1.13 07/10/19 20:36 APTT 34.9 SEC (23.5-35.8) 07/10/19 20:36 Sodium 132.4 mmol/L (137-145) L 07/10/19 11:37 Potassium 4.6 mmol/L (3.6-5.0) 07/10/19 11:37 Chloride 100 mmol/L (98-107) 07/10/19 11:37 Carbon Dioxide 22 mmol/L (22-30) 07/10/19 11:37 Anion Gap 10 (5-19) 07/10/19 11:37 BUN 21 mg/dL (7-20) H 07/10/19 11:37 Creatinine 1.17 mg/dL (0.52-1.25) 07/10/19 11:37 Est GFR ( Amer) > 60 (>60) 07/10/19 11:37 Est GFR (MDRD) Non-Af 59 (>60) L 07/10/19 11:37 Glucose 122 mg/dL (75-110) H 07/10/19 11:37 POC Glucose 141 mg/dL (70-110) H 07/11/19 12:07 Hemoglobin A1c % 9.3 % (4.7-6.0) H 07/10/19 20:36 Calcium 8.9 mg/dL (8.4-10.2) 07/10/19 11:37 Total Bilirubin 0.4 mg/dL (0.2-1.3) 07/10/19 11:37 Direct Bilirubin 0.0 mg/dL (0.0-0.4) 07/10/19 11:37 Neonat Total Bilirubin Not Reportable 07/10/19 11:37 Neonat Direct Bilirubin Not Reportable 07/10/19 11:37 Neonat Indirect Bili Not Reportable 07/10/19 11:37 AST 13 U/L (17-59) L 07/10/19 11:37 ALT 9 U/L (<50) 07/10/19 11:37 Alkaline Phosphatase 87 U/L (38-126) 07/10/19 11:37 Total Protein 6.6 g/dL (6.3-8.2) 07/10/19 11:37 Albumin 3.5 g/dL (3.5-5.0) 07/10/19 11:37 Urine Color YELLOW 07/10/19 12:42 Urine Appearance SLIGHTLY-CLOUDY 07/10/19 12:42 Urine pH 5.0 (5.0-9.0) 07/10/19 12:42 Ur Specific [place] 1.023 07/10/19 12:42 Urine Protein NEGATIVE mg/dL (NEGATIVE) 07/10/19 12:42 Urine Glucose (UA) >=500 mg/dL (NEGATIVE) H 07/10/19 12:42 Urine Ketones TRACE mg/dL (NEGATIVE) H 07/10/19 12:42 Urine Blood MODERATE (NEGATIVE) H 07/10/19 12:42 Urine Nitrite NEGATIVE (NEGATIVE) 07/10/19 12:42 Urine Bilirubin NEGATIVE (NEGATIVE) 07/10/19 12:42 Urine Urobilinogen NEGATIVE mg/dL (<2.0) 07/10/19 12:42 Ur Leukocyte Esterase MODERATE (NEGATIVE) H 07/10/19 12:42 Urine WBC (Auto) 96 /HPF 07/10/19 12:42 Urine RBC (Auto) 2 /HPF 07/10/19 12:42 Urine Bacteria (Auto) 3+ /HPF 07/10/19 12:42 Squamous Epi Cells Auto 1 /HPF 07/10/19 12:42 Urine Mucus (Auto) RARE /LPF 07/10/19 12:42 Urine Ascorbic Acid NEGATIVE (NEGATIVE) 07/10/19 12:42 Impressions: Chest CT 07/10/19 00:00 IMPRESSION: Right perihilar mass measured at 4.3 x 2.7 cm. Additional right-sided subpleural ground-glass opacities. These are nonspecific. Correlation with bronchoscopy is recommended. Renal Ultrasound 07/10/19 00:00 IMPRESSION: NORMAL RENAL AND BLADDER ULTRASOUND. Stroke Is this a Stroke Patient?: No Acute Heart Failure - Is this a Heart Failure Patient?: No
== END 2019-07-11 13:56 | disposition home or self-care (01) ==
LOC: INTOOBSV 09:50 → 3S 09:50
PROVIDERS: ADMIT Internal Medicine; ATTEND Internal Medicine
DX: D49.1 Neoplasm of unspecified behavior of respiratory system (principal); F17.210 Nicotine dependence, cigarettes, uncomplicated; I25.10 Atherosclerotic heart disease of native coronary artery without angina pectoris; E11.42 Type 2 diabetes mellitus with diabetic polyneuropathy; E11.51 Type 2 diabetes mellitus with diabetic peripheral angiopathy without gangrene; J44.9 Chronic obstructive pulmonary disease, unspecified; Z79.899 Other long term (current) drug therapy; Z79.02 Long term (current) use of antithrombotics/antiplatelets; Z95.5 Presence of coronary angioplasty implant and graft; Z79.4 Long term (current) use of insulin
CPT/HCPCS: 36415; 82962 ×2; 85025; 85610; 85730; 80076; 80048; 81001; 83036; 76770; 71260; 93005; 93010; G0378 ×2; A9270 ×10; J3420; J7030 ×2; J1815

== ENCOUNTER 2019-09-24 06:58 | Day surgery (SDC) | payer MEDICARE, OTHER ==
[~2019-09-24 06:58] MED LIST: ACETAMINOPHEN 325 MG TABLET PO PRN; CEFAZOLIN 1 GM/D5W RTU 1 GM/50 ML RTUPB IV ONE; CEFAZOLIN 1 GM/D5W RTU 1 GM/50 ML RTUPB IV PRN
[2019-09-24] MEDS ORDERED: MIDAZOLAM 2 MG/2 ML INJ ONE (07:34)
[2019-09-24] MEDS ORDERED: FENTANYL CITRATE INJ/PF 100 MCG/2 ML AMPUL ONE (07:35)
[2019-09-24] MEDS ORDERED: BACITRACIN INJ 50,000 UNIT VIAL ONE (07:35)
[2019-09-24] MEDS ORDERED: LIDOCAINE 1% INJ-PF (10 MG/ML) 30 ML SDV ONE (07:47)
--- NOTE | 2019-09-24 09:19 | Discharge Summary ---
Discharge Summary (SDC) - Discharge Final Diagnosis: Metastatic lung cancer Date of Surgery: 09/24/19 Discharge Date: 09/24/19 Condition: Fair Treatment or Instructions: May use port; may shower in 48 hours; follow-up with [place] [facility] in 10 days to 2 weeks: Take home medications including pain medications as previously instructed Referrals: MARLEN DENTON MD [Primary Care Provider] - Discharge Diet: As Tolerated Discharge Activity: Activity As Tolerated Home Care Assistance: None Needed Report the Following to Your Physician Immediately: Shortness of Breath, Increase in Pain, Fever over 101 Degrees, Unusual Bleeding
--- NOTE | 2019-09-24 09:23 | Operative Report ---
Operative Report DATE OF SURGERY: 09/24/19 PREOPERATIVE DIAGNOSIS: 1. Metastatic lung carcinoma. 2. Malnutrition POSTOPERATIVE DIAGNOSIS: Same OPERATION: 1. Ultrasound directed insertion of a left internal jugular vein catheter. 2. Left subclavian [id number] catheter. 3. Interpretation of intraoperative fluoroscopy SURGEON: RADHA SIMMONS ANESTHESIA: Moderate Sedation TISSUE REMOVED OR ALTERED: None COMPLICATIONS: None INTRAOPERATIVE FINDINGS: See below PROCEDURE: The patient was taken from ambulatory surgery to the cardiac catheterization lab was placed supine position left neck prepped and draped sterile fashion Surgical plan surgical timeout were conducted. Appropriate level of sedation was induced. Skin was anesthetized with 1% plain lidocaine. Using ultrasound as a guide, a regan was made in the left neck above the internal jugular vein. The micro needle and wire were threaded into the left internal jugular vein. A suitable site for placement of the port was chosen the left subclavian position. Skin was anesthetized 1% plain lidocaine. A 3 and half centimeter incision made with a knife, port pocket developed large enough to accommodate a dual-chamber port. Catheter was then trimmed the appropriate length, tunnel between the 2 incisions with a tunneler. 1 and was attached to the port, with the plastic ring in the port tucked into the left subclavian pocket. Under fluoroscopic guidance, the microwire was switched over to a conventional guidewire 0.030 inch under direct visualization. Because of the inability to advance the guidewire into the right atrium, a Glidewire was now inserted. We now remove the introducer and threaded over the guidewire the 9 Salv[place]orean dilator and introducer sheath. The Glidewire and dilator were removed, and free catheter fragment threaded into the strip away sheath. The sheath was removed leaving the catheter with the tip in the superior vena cava right atrial junction. There is no evidence of ectopy. There was excellent aspiration and blood flow through the catheter. No kinking of the catheter. Wounds closed with 3-0 Vicryl benzoin and Steri-Strips. Patient tolerated the procedure well, taken back to the ambulatory area in stable condition.
[2019-09-24 11:57] VITALS: BP 99/55
--- NOTE | 2019-09-25 08:16 | RADIOLOGY REPORT (SQ) ---
EXAM DESCRIPTION: PORTACATH INSERTION; GUIDANCE FLUOROSCOPIC IMAGES COMPLETED DATE/TIME: 09/24/2019 9:34 am REASON FOR STUDY: C34.2 MALIGNANT NEOPLASM OF MIDDLE LOBE C34.2 MALIGNANT NEOPLASM OF MIDDLE LOBE, BRONCHUS OR LUNG COMPARISON: None. FLUOROSCOPY TIME: 0.3 minutes Spot images saved to PACS. TECHNIQUE: Intra-operative images acquired during surgical procedure to evaluate progress. NUMBER OF IMAGES: 2 LIMITATIONS: None. FINDINGS: Fluoroscopy was provided for intraoperative procedure. Please refer to the operative repo rt for further discussion. IMPRESSION: IMAGE(S) OBTAINED DURING PROCEDURE. COMMENT: Quality ID 145: Final reports for procedures using fluoroscopy that document radiation exp osure indices, or exposure time and number of fluorographic images (if radiation exposure indices are not available) Please consult full operative report of the attending physician for description of the procedure. TECHNICAL DOCUMENTATION: JOB ID: [id number] 2010 [email or web address]- All Rights Reserved Reading location - IP/workstation name: [email or web address]
--- NOTE | 2019-09-25 08:16 | RADIOLOGY REPORT (SQ) ---
EXAM DESCRIPTION: PORTACATH INSERTION; GUIDANCE FLUOROSCOPIC IMAGES COMPLETED DATE/TIME: 09/24/2019 9:34 am REASON FOR STUDY: C34.2 MALIGNANT NEOPLASM OF MIDDLE LOBE C34.2 MALIGNANT NEOPLASM OF MIDDLE LOBE, BRONCHUS OR LUNG COMPARISON: None. FLUOROSCOPY TIME: 0.3 minutes Spot images saved to PACS. TECHNIQUE: Intra-operative images acquired during surgical procedure to evaluate progress. NUMBER OF IMAGES: 2 LIMITATIONS: None. FINDINGS: Fluoroscopy was provided for intraoperative procedure. Please refer to the operative repo rt for further discussion. IMPRESSION: IMAGE(S) OBTAINED DURING PROCEDURE. COMMENT: Quality ID 145: Final reports for procedures using fluoroscopy that document radiation exp osure indices, or exposure time and number of fluorographic images (if radiation exposure indices are not available) Please consult full operative report of the attending physician for description of the procedure. TECHNICAL DOCUMENTATION: JOB ID: [id number] 2010 [employer]- All Rights Reserved Reading location - IP/workstation name: [email or web address]
== END 2019-09-24 10:35 | disposition home or self-care (01) ==
LOC: CCL 06:58
PROVIDERS: ATTEND Surgery
DX: C78.00 Secondary malignant neoplasm of unspecified lung (principal); Z03.818 Encounter for observation for suspected exposure to other biological agents ruled out; C34.2 Malignant neoplasm of middle lobe, bronchus or lung; E46 Unspecified protein-calorie malnutrition; F03.90 Unspecified dementia, unspecified severity, without behavioral disturbance, psychotic disturbance, mood disturbance, and anxiety; I25.2 Old myocardial infarction; E11.9 Type 2 diabetes mellitus without complications; Z85.038 Personal history of other malignant neoplasm of large intestine; Z85.46 Personal history of malignant neoplasm of prostate; I10 Essential (primary) hypertension; Z79.899 Other long term (current) drug therapy; Z79.4 Long term (current) use of insulin; Z87.891 Personal history of nicotine dependence
CPT/HCPCS: 36591; 82962; 36561; 76937; 77001; C1752; C1788; C1769; U0003; J2250; J3490 ×2; J0690; J3010; J1644; C9803; 87635

== ENCOUNTER → 2019-11-05 | Outpatient (CLI) | payer MEDICARE, OTHER ==
--- NOTE | 2019-11-05 09:52 | RADIOLOGY REPORT (SQ) ---
EXAM DESCRIPTION: CT THORACIC SPINE WITHOUT IMAGES COMPLETED DATE/TIME: 11/05/2019 8:57 am REASON FOR STUDY: C34.91 MALIGNANT NEOPLASM OF UNSP PART OF RIGHT BRONCHUS OR LUNG, BACK PAIN C34.91 MALIGNANT NEOPLASM OF UNSP PART OF RIGHT BRONCHUS OR COMPARISON: Chest CT 07/10/2019. TECHNIQUE: Axial images acquired through the thoracic spine without intravenous contrast. Images re viewed with lung, soft tissue and bone windows. Reconstructed coronal and sagittal MPR images review ed. Images stored on PACS. All CT scanners at this facility use dose modulation, iterative reconstruction, and/or weight based d osing when appropriate to reduce radiation dose to as low as reasonably achievable (ALARA). [facility]: Dose Right [facility]: CareDose [facility]: Dose Right [facility]: Teradose 4D [facility]: [employer] RADIATION DOSE: CT Rad equipment meets quality standard of care and radiation dose reduction techniq ues were employed. CTDIvol: 6.6 mGy. DLP: 257 mGy-cm. mGy. LIMITATIONS: None. FINDINGS: VISUALIZED LUNGS: Known right perihilar mass. SOFT TISSUES: No soft tissue swelling. No masses. VERTEBRAL BODIES: Chronic compression fractures T4 and T9. Compression superior endplate T11 approxi mately 20% height loss more so to left of midline was not present on the chest CT 07/10/2019. DISCS: Mild spondylosis. ALIGNMENT: Normal. TRANSVERSE PROCESSES, POSTERIOR ELEMENTS: No fractures. No dislocation. No acute findings. HARDWARE: None in the spine. VISUALIZED RIBS: No fractures. OTHER: No other significant finding. IMPRESSION: 1. Mild compression fracture of T11 of uncertain chronicity but not present 07/10/2019. No retropulsi on. 2. Known right hilar mass. TECHNICAL DOCUMENTATION: JOB ID: [id number] Quality ID # [id number]: Final reports with documentation of one or more dose reduction techniques (e.g., Au tomated exposure control, adjustment of the mA and/or kV according to patient size, use of iterative reconstruction technique) 2010 [employer]- All Rights Reserved Reading location - IP/workstation name: [email or web address]
== END ==
LOC: RAD 08:45
PROVIDERS: ATTEND Radiology Radiation Oncology
DX: M48.54XD Collapsed vertebra, not elsewhere classified, thoracic region, subsequent encounter for fracture with routine healing (principal); M47.814 Spondylosis without myelopathy or radiculopathy, thoracic region; C34.91 Malignant neoplasm of unspecified part of right bronchus or lung; M54.9 Dorsalgia, unspecified
CPT/HCPCS: 72128

== ENCOUNTER → 2019-11-09 | Outpatient (CLI) | payer MEDICARE, OTHER ==
--- NOTE | 2019-11-09 16:23 | RADIOLOGY REPORT (SQ) ---
EXAM DESCRIPTION: MRI THORACIC SPINE COMBO IMAGES COMPLETED DATE/TIME: 11/09/2019 3:53 pm REASON FOR STUDY: C34.2 MALIGNANT NEOPLASM OF MIDDLE LOBE, BRONCHUS OR LUNG C34.2 MALIGNANT NEOPLAS M OF MIDDLE LOBE, BRONCHUS OR LUNG COMPARISON: CT 11/05/2019. PET-CT from July. TECHNIQUE: Sagittal and Axial imaging includes T1, T2, STIR and gradient echo sequences. T1 post ga dolinium sequences. CONTRAST TYPE AND DOSE: 10 mL Dotarem. RENAL FUNCTION: Not indicated. ACR Type II contrast agent associated with few, if any, unconfounded cases of NSF LIMITATIONS: None. FINDINGS: LOCALIZER: No worrisome findings. ALIGNMENT: Normal. VERTEBRAE: Chronic appearing mild compression deformities at T9 and T11. No associated marrow edema or underlying bone lesion at these levels. BONE MARROW: Normal. No marrow replacement or reactive changes. HARDWARE: None in the spine. CORD: Normal in size and signal intensity. SOFT TISSUES: Paraspinal tissues look relatively normal. Abnormal signal in the right lower lobe con sistent with known mass. THORACIC DISCS T1-T12: No significant spinal stenosis or exit foraminal stenosis. LOWER CERVICAL: Spondylosis, incompletely assessed. UPPER LUMBAR: Incompletely imaged. No significant spinal stenosis or exit foraminal stenosis. ENHANCEMENT: No abnormal enhancement. OTHER: No other significant finding. IMPRESSION: 1. No suspicious lesions. No acute fracture. No spinal stenosis. No abnormal enhancement. TECHNICAL DOCUMENTATION: JOB ID: [id number] 2010 [email or web address]- All Rights Reserved Reading location - IP/workstation name: [email or web address]
--- NOTE | 2019-11-09 16:31 | RADIOLOGY REPORT (SQ) ---
EXAM DESCRIPTION: MRI LUMBAR SPINE COMBO IMAGES COMPLETED DATE/TIME: 11/09/2019 3:53 pm REASON FOR STUDY: C34.2 MALIGNANT NEOPLASM OF MIDDLE LOBE, BRONCHUS OR LUNG C34.2 MALIGNANT NEOPLAS M OF MIDDLE LOBE, BRONCHUS OR LUNG COMPARISON: Recent PET-CT. TECHNIQUE: Sagittal and Axial imaging includes T1, T1 post gadolinium, T2, STIR and gradient echo se quences. Coronal T2/HASTE imaging. CONTRAST TYPE AND DOSE: 10 mL Dotarem. RENAL FUNCTION: Not indicated. ACR Type II contrast agent associated with few, if any, unconfounded cases of NSF LIMITATIONS: None. FINDINGS: VISUALIZED UPPER ABDOMEN: Limited evaluation. No acute or suspicious findings suggested. SEGMENTATION: No transitional anatomy. The lowest well-developed disc space is labeled L5-S1. ALIGNMENT: Anatomic. VERTEBRAE: Intact. No fractures. BONE MARROW: Mild Schmorl's nodes with edema along the posterior L4 endplate. DISC SIGNAL: Variable signal and height loss. POSTERIOR ELEMENTS: Irregular facet degenerative overgrowth. Right hemilaminectomy and facet resect ion at L3-4. HARDWARE: None in the spine. CORD AND CONUS: Normal in size and signal intensity. Conus at the appropriate level. SOFT TISSUES: No aortic aneurysm seen. No bulky retroperitoneal adenopathy or mass. No paraspinal mas s or fluid. L1-L2: Mild foraminal narrowing bilateral. L2-L3: Disc space loss mild bulging. Posterior ligament thickening and facet overgrowth with moderat e central stenosis. Up to moderate bilateral foraminal stenosis. L3-L4: Broad disc bulge. Exuberant posterior ligament thickening, critically on the left. Facet ove rgrowth on the left. Moderate central stenosis with left lateral recess narrowing. Moderate bilater al foraminal stenosis. L4-L5: Broad disc bulge. Exuberant facet overgrowth. Marked central stenosis. At least moderate bi lateral foraminal stenosis, left greater than right. L5-S1: Broad disc bulge with eccentric left lateral extension. There is facet overgrowth with marked left foraminal stenosis. LOWER THORACIC: Incompletely imaged. No stenosis seen. SACRUM: Visualized upper sacrum intact. ENHANCEMENT: No abnormal enhancement. OTHER: No other significant findings. IMPRESSION: 1. Multilevel lumbar spondylosis. Postoperative changes. Significant central stenosis at L4-5. Lef t foraminal stenosis at L5. 2. No suspicious enhancement. No fracture or underlying bone lesion. TECHNICAL DOCUMENTATION: JOB ID: [id number] 2010 [employer]- All Rights Reserved Reading location - IP/workstation name: [email or web address]
== END ==
LOC: RAD 14:01
PROVIDERS: ATTEND Internal Medicine
DX: C34.2 Malignant neoplasm of middle lobe, bronchus or lung (principal); M51.36 Other intervertebral disc degeneration, lumbar region; M48.061 Spinal stenosis, lumbar region without neurogenic claudication
CPT/HCPCS: 72157; 72158

== ENCOUNTER 2019-12-21 14:23 | Inpatient (IN) | payer MEDICARE, OTHER ==
[2019-12-21 14:56] LABS: HEMATOCRIT 42.7 % (37.9-51.0); HEMOGLOBIN 14.3 g/dL (13.5-17.0); MEAN CORPUSCULAR HGB CONC 33.5 g/dL (32.0-36.0); MEAN CORPUSCULAR VOLUME 90 fl (80-97); PLATELET COUNT 394 10^3/uL (150-450); RED BLOOD COUNT 4.77 10^6/uL (4.35-5.55); RED CELL DISTRIBUTION WIDTH 16.1 % (11.5-14.0); WHITE BLOOD COUNT 11.9 10^3/uL (4.0-10.5)
[2019-12-21 14:57] LABS: VENOUS BLOOD BASE EXCESS 0.7 mmol/L; VENOUS BLOOD HCO3 26.4 mmol/L (20-32); VENOUS BLOOD PCO2 46.4 mmHg (35-63); VENOUS BLOOD PH 7.37 (7.30-7.42)
[2019-12-21 14:59] LABS: APPEARANCE,URINE CLEAR; BILIRUBIN,URINE NEGATIVE (NEGATIVE); COLOR,URINE STRAW; GLUCOSE, URINE >=500 mg/dL (NEGATIVE); KETONES,URINE NEGATIVE (NEGATIVE); PROTEIN,URINE NEGATIVE (NEGATIVE); URINE SPECIFIC GRAVITY 1.025; UROBILINOGEN,URINE NEGATIVE mg/dL (<2.0)
[2019-12-21 15:04] LABS: PROTHROMBIN TIME 14.4 SEC (11.4-15.4)
[2019-12-21 15:16] LABS: ALBUMIN 3.8 g/dL (3.5-5.0); ALKALINE PHOSPHATASE 91 U/L (38-126); ANION GAP 13 (5-19); ASPARTATE AMINO TRANSFERASE 15 U/L (17-59); BILIRUBIN,DIRECT 0.2 mg/dL (0.0-0.4); BILIRUBIN,TOTAL 0.5 mg/dL (0.2-1.3); BLOOD UREA NITROGEN 46 mg/dL (7-20); CALCIUM 10.3 mg/dL (8.4-10.2); CARBON DIOXIDE 24 mmol/L (22-30); CHLORIDE 94 mmol/L (98-107); GLUCOSE 389 mg/dL (75-110); POTASSIUM 5.3 mmol/L (3.6-5.0); TOTAL PROTEIN 6.9 g/dL (6.3-8.2)
[2019-12-21 15:17] LABS: ABSOLUTE LYMPHOCYTES# (MANUAL) 0.8 10^3/uL (0.5-4.7); ABSOLUTE MONOCYTES # (MANUAL) 0.7 10^3/uL (0.1-1.4); BASOPHILS % (MANUAL) 0 % (0-2); EOSINOPHILS % (MANUAL) 0 % (0-6); LYMPHOCYTES % (MANUAL) 7 % (13-45); MONOCYTES % (MANUAL) 6 % (3-13); RBC MORPHOLOGY COMMENT NORMO-CYTIC/CHROMIC; SEGMENTED NEUTROPHILS % (MAN) 87 % (42-78); TOTAL CELLS COUNTED 100
[2019-12-21 15:19] LABS: PLATELET COMMENT ADEQUATE
--- NOTE | 2019-12-21 15:50 | RADIOLOGY REPORT (SQ) ---
EXAM DESCRIPTION: CHEST SINGLE VIEW IMAGES COMPLETED DATE/TIME: 12/21/2019 3:38 pm REASON FOR STUDY: bed 8 sepsis alert COMPARISON: 08/03/2013 EXAM PARAMETERS: NUMBER OF VIEWS: One view. TECHNIQUE: Single frontal radiographic view of the chest acquired. RADIATION DOSE: NA LIMITATIONS: None. FINDINGS: LUNGS AND PLEURA: Patchy right basilar airspace disease compatible with pneumonia. No ple ural effusion or pneumothorax. MEDIASTINUM AND HILAR STRUCTURES: No masses. Contour normal. HEART AND VASCULAR STRUCTURES: Heart normal in size. Normal vasculature. BONES: No acute findings. HARDWARE: Left internal jugular based chest port with catheter tip at innominate. OTHER: No other significant finding. IMPRESSION: Patchy right basilar airspace disease compatible with pneumonia. TECHNICAL DOCUMENTATION: JOB ID: [id number] 2010 [employer]- All Rights Reserved Reading location - IP/workstation name: [email or web address]
[2019-12-21] MEDS ORDERED: CEFTRIAXONE 2 GM/D5W RTU 2 GM/50 ML RTUPB IV ONE (16:00)
[2019-12-21] MEDS ORDERED: AZITHROMYCIN 250 MG TABLET PO ONE ×2 (16:00→19:00)
--- NOTE | 2019-12-21 16:18 | RADIOLOGY REPORT (SQ) ---
EXAM DESCRIPTION: CT HEAD WITHOUT IMAGES COMPLETED DATE/TIME: 12/21/2019 3:38 pm REASON FOR STUDY: ams COMPARISON: 05/01/2018 MRI TECHNIQUE: Axial images acquired through the brain without intravenous contrast. Images reviewed wi th bone, brain and subdural windows. Additional sagittal and coronal reconstructions were generated. Images stored on PACS. All CT scanners at this facility use dose modulation, iterative reconstruction, and/or weight based d osing when appropriate to reduce radiation dose to as low as reasonably achievable (ALARA). [facility]: Dose Right [facility]: CareDose [facility]: Dose Right [facility]: Teradose 4D [facility]: [employer] RADIATION DOSE: CT Rad equipment meets quality standard of care and radiation dose reduction techniq ues were employed. CTDIvol: 53.2 - 55.2 mGy. DLP: 2929 mGy-cm.mGy. LIMITATIONS: Motion degraded exam. FINDINGS: VENTRICLES: Prominent. CEREBRUM: No masses. No hemorrhage. No midline shift. Areas of low density in the white matter mos t likely due to chronic micro-vascular ischemic change. No evidence for acute infarction. CEREBELLUM: No masses. No hemorrhage. No alteration of density. No evidence for acute infarction. EXTRAAXIAL SPACES: Age-related involutional change. No fluid collections. No masses. ORBITS AND GLOBE: No intra- or extraconal masses. Normal contour of globe without masses. CALVARIUM: No fracture. PARANASAL SINUSES: No fluid or mucosal thickening. SOFT TISSUES: No mass or hematoma. OTHER: No other significant finding. IMPRESSION: CHRONIC CHANGES OF ATROPHY AND MICROVASCULAR ISCHEMIA. NO ACUTE PROCESS. EVIDENCE OF ACUTE STROKE: NO. TECHNICAL DOCUMENTATION: JOB ID: [id number] Quality ID # 436: Final reports with documentation of one or more dose reduction techniques (e.g., Au tomated exposure control, adjustment of the mA and/or kV according to patient size, use of iterative reconstruction technique) 2010 [employer]- All Rights Reserved Reading location - IP/workstation name: [email or web address]
--- NOTE | 2019-12-21 16:45 | ER Document Report ---
ED General - General Chief Complaint: Cough Stated Complaint: SEPSIS Time Seen by Provider: 12/21/19 14:41 Primary Care Provider: PASCUAL GUTIERREZ MD [Primary Care Provider] - Follow up as needed Mode of Arrival: Medic Information source: Patient, Emergency Med Personnel TRAVEL OUTSIDE OF THE [place] IN LAST 30 DAYS: No - HPI Notes: Patient is brought in by paramedics due to request of family. Family states the patient has been weak and fatigued with a cough. Family states last 4 days patient has become significantly more weak and has been unable to get out of bed. They state that yesterday the patient was covered in feces because he was unable to get out of bed to go to the bathroom. Some questionable low-grade fever and chills. Cough is apparently been nonproductive. Patient just did recently finish chemotherapy for lung cancer. Patient denies any pain at this time. No known history of vomiting or diarrhea. Patient symptoms of fatigue apparently been severe. They been constant. They radiate throughout his body. They are worse with exertion and better with rest. - Related Data Allergies/Adverse Reactions: aspirin [Aspirin] Allergy (Unknown, Verified 09/24/19 07:45) Past Medical History - General Information source: Patient - Social History Smoking Status: Former Smoker Frequency of alcohol use: None Drug Abuse: None Family History: Reviewed & Not Pertinent - Past Medical History Cardiac Medical History: Reports: Hx Coronary Artery Disease, Hx Heart Attack, Hx Hypercholesterolemia, Hx Hypertension, Hx Peripheral Vascular Disease Pulmonary Medical History: Denies: Hx Tuberculosis Endocrine Medical History: Reports: Hx Diabetes Mellitus Type 2 Renal/ Medical History: Denies: Hx Peritoneal Dialysis Psychiatric Medical History: Reports: Hx Depression Past Surgical History: Reports: Hx Coronary Stent Review of Systems - Review of Systems Constitutional: Chills, Fever, Malaise, Weakness Cardiovascular: denies: Chest pain, Palpitations Respiratory: Cough. denies: Short of breath -: Yes All other systems reviewed and negative Physical Exam - Vital signs Vitals: Resp 20 12/21/19 14:32 Interpretation: Tachycardic - General General appearance: Alert In distress: None - HEENT Head: Normocephalic, Atraumatic Eyes: Normal Pupils: PERRL - Respiratory Respiratory status: No respiratory distress Chest status: Nontender Breath sounds: Decreased air movement, Rhonchi Chest palpation: Normal - Cardiovascular Rhythm: Tachycardia Heart sounds: Normal auscultation Murmur: No - Abdominal Inspection: Normal Distension: No distension Bowel sounds: Normal Tenderness: Nontender Organomegaly: No organomegaly - Back Back: Normal, Nontender - Extremities General upper extremity: Normal inspection, Nontender, Normal color, Normal ROM, Normal temperature General lower extremity: Normal inspection, Nontender, Normal color, Normal ROM, Normal temperature, Normal weight bearing. No: Loretta's sign - Neurological Neuro grossly intact: Yes Cognition: Confused Lenora Coma Scale Eye Opening: Spontaneous Webster Coma Scale Verbal: Confused Webster Coma Scale Motor: Obeys Commands Lenora Coma Scale Total: 14 Speech: Normal - Psychological Associated symptoms: Normal affect, Normal mood - Skin Skin Temperature: Warm Skin Moisture: Dry Skin Color: Normal Course - Re-evaluation Re-evalutation: 12/21/19 16:50 Patient presents with extreme fatigue and cough. X-ray is consistent with bilateral pneumonia. Patient will be tested for Covid. In the meantime patient be covered with antibiotics. I have spoke with the patient's primary care physician about admission. - Vital Signs Vital signs: Temp Pulse Resp BP Pulse Ox 98.1 F 19 100 12/21/19 15:00 12/21/19 15:00 12/21/19 14:44 - Laboratory Result Diagrams: 12/21/19 14:38 12/21/19 14:38 Laboratory results interpreted by me: 12/21/19 12/21/19 12/21/19 14:38 14:38 14:38 WBC 11.9 H RDW 16.1 H Seg Neuts % (Manual) 87 H Lymphocytes % (Manual) 7 L Abs Neuts (Manual) 10.4 H Sodium 131.1 L Potassium 5.3 H Chloride 94 L BUN 46 H Glucose 389 H Lactic Acid 2.4 H Calcium 10.3 H AST 15 L Urine Glucose (UA) 12/21/19 14:38 WBC RDW Seg Neuts % (Manual) Lymphocytes % (Manual) Abs Neuts (Manual) Sodium Potassium Chloride BUN Glucose Lactic Acid Calcium AST Urine Glucose (UA) >=500 H - Diagnostic Test Radiology reviewed: Image reviewed, Reports reviewed - EKG Interpretation by Tn EKG shows normal: Sinus rhythm Rate: Tachycardia - 102 Rhythm: NSR [place]/QRS: No: RBBB, LBBB Discharge - Discharge Clinical Impression: Hyperglycemia due to diabetes mellitus, Person under investigation for COVID-19 Pneumonia Qualifiers: Pneumonia type: due to unspecified organism Laterality: bilateral Lung location: lower lobe of lung Qualified Code(s): J18.9 - Pneumonia, unspecified organism Lung cancer Qualifiers: Laterality: unspecified laterality Lung location: unspecified part of lung Qualified Code(s): C34.90 - Malignant neoplasm of unspecified part of unspecified bronchus or lung Condition: Serious Disposition: ADMITTED INPATIENT Admitting Provider: [facility] Unit Admitted: IMCU Referrals: PASCUAL GUTIERREZ MD [Primary Care Provider] - Follow up as needed
[2019-12-21] MEDS ORDERED: INSULIN REG, HUMAN 100 UNIT/ML 3 ML VIAL (PYX) IV ONE (16:51)
[2019-12-21] MEDS ORDERED: NORMAL SALINE 1000 ML 1,000 ML IV ONE ×2 (16:51→16:52)
[2019-12-21] MEDS ORDERED: ACETAMINOPHEN 325 MG TABLET PO PRN (17:46)
[2019-12-21] MEDS ORDERED: DEXAMETHASONE SOD PHOS INJ 10 MG/1 ML VIAL IV SCH (18:00)
[2019-12-21] MEDS: CHOLECALCIFEROL (D3) 1,000 UNIT (25 MCG) TABLET PO SCH (18:43)
[2019-12-21] MEDS: ASCORBIC ACID 500 MG TABLET PO SCH (18:44)
[2019-12-21] MEDS: ZINC SULFATE 220 MG CAPSULE PO SCH (18:44)
--- NOTE | 2019-12-21 19:40 | PDOC H&P ---
History of Present Illness Admission Date/PCP: 12/21/19 17:25 PASCUAL GUTIERREZ MD History of Present Illness: CORA GARCIA SR is a 84 year old male He has history of malignant neoplasm of the left lung status post radiation therapy and chemotherapy. Family stated that patient has been very fatigued ,his function has declined in the last 4 days, he has not been able to get out of bed to go to the bathroom by himself. There is cough, low-grade fever. History taking is somewhat challenging, chest x-ray that was done suggest pneumonia, the markers of inflammation are elevated, CRP, ferritin Family said he has not been eating or drinking his condition is declining When I spoke to him he is somewhat very philosophical, talking about his days in [place], he said he has paid his dues to the contrary and now it is left to the future evaluation to continue the struggle Past Medical History Cardiac Medical History: Reports: Coronary Artery Disease, Myocardial Infarction, Hyperlipidema, Hypertension, Peripheral Vascular Disease Endocrine Medical History: Reports: Diabetes Mellitus Type 2 Malignancy Medical History: Reports: Lung Cancer Psychiatric Medical History: Reports: Depression Past Surgical History Past Surgical History: Reports: Coronary Stent Social History Smoking Status: Former Smoker Frequency of Alcohol Use: None Hx Recreational Drug Use: No Drugs: None Hx Prescription Drug Abuse: No Family History Family History: Reviewed & Not Pertinent Parental Family History Reviewed: Yes Children Family History Reviewed: Yes Sibling(s) Family History Reviewed.: Yes Medication/Allergy Home Medications: Citalopram Hydrobromide [Celexa 40 mg Tablet] 40 mg PO DAILY 07/16/12 Clopidogrel Bisulfate [Plavix 75 mg Tablet] 75 mg PO DAILY 07/16/12 Simvastatin [Zocor 20 mg Tablet] 20 mg PO QHS 07/16/12 Tamsulosin HCl [Flomax] 0.4 mg PO DAILY 08/03/13 Finasteride [Proscar 5 mg Tablet] 5 mg PO DAILY 07/10/19 Allergies/Adverse Reactions: aspirin [Aspirin] Allergy (Unknown, Verified 09/24/19 07:45) Review of Systems Constitutional: PRESENT: fatigue, weakness, weight loss Eyes: ABSENT: visual disturbances Ears: ABSENT: hearing changes Cardiovascular: ABSENT: chest pain, dyspnea on exertion, edema, orthropnea, palpitations Respiratory: PRESENT: cough, sputum. ABSENT: hemoptysis Gastrointestinal: ABSENT: abdominal pain, constipation, diarrhea, hematemesis, hematochezia, nausea, vomiting Genitourinary: ABSENT: dysuria, hematuria Musculoskeletal: ABSENT: joint swelling Integumentary: ABSENT: rash, wounds Neurological: PRESENT: confusion. ABSENT: abnormal gait, abnormal speech, dizziness, focal weakness, syncope Psychiatric: ABSENT: anxiety, depression, homidical ideation, suicidal ideation Endocrine: ABSENT: cold intolerance, heat intolerance, menstrual abnormalities, polydipsia, polyuria Hematologic/Lymphatic: ABSENT: easy bleeding, easy bruising, lymphadenopathy Physical Exam Vital Signs: Temp Pulse Resp BP Pulse Ox 98.2 F 23 H 122/68 100 12/21/19 18:01 12/21/19 19:27 12/21/19 19:27 12/21/19 19:27 Intake & Output 12/20/19 12/21/19 12/22/19 06:59 06:59 06:59 Intake Total 1050 Balance 1050 Weight 66.678 kg General appearance: PRESENT: no acute distress Head exam: PRESENT: atraumatic, normocephalic Eye exam: PRESENT: PERRLA Ear exam: PRESENT: normal external ear exam Mouth exam: PRESENT: moist, tongue midline Neck exam: PRESENT: full ROM Respiratory exam: PRESENT: clear to auscultation keegan Cardiovascular exam: PRESENT: RRR, +S1, +S2 Pulses: PRESENT: normal dorsalis pedis pul, +2 pedal pulses bilateral Vascular exam: PRESENT: normal capillary refill GI/Abdominal exam: PRESENT: normal bowel sounds, soft Rectal exam: PRESENT: deferred Neurological exam: PRESENT: alert, CN II-XII grossly intact. ABSENT: motor sensory deficit Skin exam: PRESENT: dry, intact, warm Results Laboratory Results: 12/21/19 14:38 12/21/19 14:38 12/21/19 12/21/19 12/21/19 14:38 14:38 14:38 WBC 11.9 H RBC 4.77 Hgb 14.3 Hct 42.7 MCV 90 MCH 30.0 MCHC 33.5 RDW 16.1 H Plt Count 394 Seg Neutrophils % Not Reportable VBG pH 7.37 VBG pCO2 46.4 VBG HCO3 26.4 VBG Base Excess 0.7 Sodium 131.1 L Potassium 5.3 H Chloride 94 L Carbon Dioxide 24 Anion Gap 13 BUN 46 H Creatinine 1.05 Est GFR ( Amer) > 60 Glucose 389 H Lactic Acid Calcium 10.3 H Total Bilirubin 0.5 AST 15 L Alkaline Phosphatase 91 Total Protein 6.9 Albumin 3.8 Urine Color Urine Appearance Urine pH Ur Specific Shafer Urine Protein Urine Glucose (UA) Urine Ketones Urine Blood Urine RBC (Auto) 12/21/19 12/21/19 14:38 14:38 WBC RBC Hgb Hct MCV MCH MCHC RDW Plt Count Seg Neutrophils % VBG pH VBG pCO2 VBG HCO3 VBG Base Excess Sodium Potassium Chloride Carbon Dioxide Anion Gap BUN Creatinine Est GFR ( Amer) Glucose Lactic Acid 2.4 H Calcium Total Bilirubin AST Alkaline Phosphatase Total Protein Albumin Urine Color STRAW Urine Appearance CLEAR Urine pH 5.0 Ur Specific Shafer 1.025 Urine Protein NEGATIVE Urine Glucose (UA) >=500 H Urine Ketones NEGATIVE Urine Blood NEGATIVE Urine RBC (Auto) 0 12/21/19 14:38 Troponin I < 0.012 Impressions: Chest X-Ray 12/21/19 14:26 IMPRESSION: Patchy right basilar airspace disease compatible with pneumonia. Head CT 12/21/19 14:41 IMPRESSION: CHRONIC CHANGES OF ATROPHY AND MICROVASCULAR ISCHEMIA. NO ACUTE PROCESS. EVIDENCE OF ACUTE STROKE: NO. Assessment & Plan - Diagnosis (1) Pneumonia Qualifiers: Pneumonia type: due to unspecified organism Laterality: bilateral Lung location: lower lobe of lung Qualified Code(s): J18.9 - Pneumonia, unspecified organism Is this a current diagnosis for this admission?: Yes Plan: He has pneumonia he will be treated empirically with antibiotic to cover community acquired pathogens (2) Type 2 diabetes mellitus with diabetic polyneuropathy Qualifiers: Diabetes mellitus nursing home insulin use: with nursing home use Qualified Code(s): E11.42 - Type 2 diabetes mellitus with diabetic polyneuropathy; Z79.4 - [facility] (current) use of insulin Is this a current diagnosis for this admission?: Yes (3) Person under investigation for COVID-19 Is this a current diagnosis for this admission?: Yes Plan: Nasal swab was taken to check for SARS-CoV-2 infection (4) Malignant neoplasm of unspecified part of right bronchus or lung Is this a current diagnosis for this admission?: Yes Plan: Patient is status post chemotherapy and also radiotherapy physically declining, adult failure to thrive, not able to care for himself - Time Time Spent: Greater than 70 Minutes Medications reviewed and adjusted accordingly: Yes Anticipated Discharge Disposition: Home, Self Care Anticipated Discharge Timeframe: within 72 hours
[2019-12-21 19:41] LABS: A TYPE INFLUENZA AG NEGATIVE (NEGATIVE); B INFLUENZA AG NEGATIVE (NEGATIVE)
--- NOTE | 2019-12-21 19:45 | EKG REPORT ---
SEVERITY:- ABNORMAL ECG - SINUS TACHYCARDIA INFERIOR INFARCT, OLD LATERAL LEADS ARE ALSO INVOLVED BORDERLINE PROLONGED QT INTERVAL : Confirmed by: Britton Tony MD 21-Dec-2019 19:44:35
[2019-12-21] MEDS: DEXAMETHASONE SOD PHOSPHATE INJ 4 MG/1 ML VIAL IV SCH (21:46)
[2019-12-21] MEDS: ENOXAPARIN SODIUM INJ 40 MG/0.4 ML DISP.SYRIN SUBCUT SCH (21:47)
[2019-12-21] MEDS: NORMAL SALINE 1000 ML 1,000 ML IV PRN (23:02)
[2019-12-21 23:11] LABS: INTERNATIONAL RATION (INR) 1.17; PROTHROMBIN TIME 15.1 SEC (11.4-15.4)
[2019-12-21 23:12] LABS: FIBRINOGEN 490 mg/dL (209-497); PARTIAL THROMBOPLASTIN TIME 31.1 SEC (23.5-35.8)
[2019-12-21 23:13] LABS: ALBUMIN 3.3 g/dL (3.5-5.0); ALKALINE PHOSPHATASE 83 U/L (38-126); ANION GAP 10 (5-19); ASPARTATE AMINO TRANSFERASE 15 U/L (17-59); BILIRUBIN,TOTAL 0.2 mg/dL (0.2-1.3); BLOOD UREA NITROGEN 40 mg/dL (7-20); C-REACTIVE PROTEIN 20.3 mg/L (<10.0); CALCIUM 9.4 mg/dL (8.4-10.2); CARBON DIOXIDE 23 mmol/L (22-30); CHLORIDE 100 mmol/L (98-107); GLUCOSE 249 mg/dL (75-110); POTASSIUM 4.7 mmol/L (3.6-5.0); TOTAL PROTEIN 6.5 g/dL (6.3-8.2)
[2019-12-21 23:14] LABS: D-DIMER 2.24 ug/mL (0.00-0.50)
[2019-12-21 23:47] LABS: CREATINE KINASE < 20 U/L (55-170)
[2019-12-22] MEDS: FINASTERIDE 5 MG TABLET PO SCH ×2 (03:04→10:57)
[2019-12-22] MEDS: TAMSULOSIN HCL 0.4 MG CAP.SR.24H PO SCH ×2 (03:04→10:57)
[2019-12-22] MEDS: NORMAL SALINE 1000 ML 1,000 ML IV PRN ×2 (09:02→21:21)
[2019-12-22] MEDS: DEXAMETHASONE SOD PHOSPHATE INJ 4 MG/1 ML VIAL IV SCH (10:56)
[2019-12-22] MEDS: ENOXAPARIN SODIUM INJ 40 MG/0.4 ML DISP.SYRIN SUBCUT SCH (10:57)
[2019-12-22] MEDS: ASCORBIC ACID 500 MG TABLET PO SCH ×2 (10:57→17:37)
[2019-12-22] MEDS: CHOLECALCIFEROL (D3) 1,000 UNIT (25 MCG) TABLET PO SCH (10:57)
[2019-12-22] MEDS: ZINC SULFATE 220 MG CAPSULE PO SCH (10:57)
[2019-12-22] MEDS: CEFTRIAXONE 1 GM/D5W RTU 1 GM/50 ML RTUPB IV SCH (10:59)
[2019-12-22] MEDS ORDERED: DEXTROSE 50%-WATER SYRINGE 25 GM/50 ML DOSE IV PRN (13:30)
[2019-12-22] MEDS ORDERED: DEXTROSE 50%-WATER SYRINGE 12.5 GM/25 ML DOSE IV PRN (13:30)
[2019-12-22] MEDS ORDERED: GLUCAGON,HUMAN RECOMB 1 MG INJ IM PRN (13:30)
[2019-12-22] MEDS ORDERED: DEXTROSE 40% GEL 15 GM TUBE X 2 PO PRN (13:30)
[2019-12-22] MEDS ORDERED: DEXTROSE 40% GEL 15 GM TUBE PO PRN (13:30)
--- NOTE | 2019-12-22 17:30 | RADIOLOGY REPORT (SQ) ---
EXAM DESCRIPTION: CTA CHEST IMAGES COMPLETED DATE/TIME: 12/22/2019 4:39 pm REASON FOR STUDY: SUSPECT PE COMPARISON: 07/10/2019 TECHNIQUE: CT scan of the chest performed using helical scanning technique with dynamic intravenous contrast injection. Images reviewed with lung, soft tissue and bone windows. Reconstructed coronal and sagittal MPR images reviewed. Additional 3 dimensional post-processing performed to develop Maximal Intensity Projection images ([place] P). All images stored on PACS. All CT scanners at this facility use dose modulation, iterative reconstruction, and/or weight based d osing when appropriate to reduce radiation dose to as low as reasonably achievable (ALARA). [facility]: Dose Right [facility]: CareDose [facility]: Dose Right [facility]: Teradose 4D [facility]: [employer] Preference CONTRAST TYPE AND DOSE: contrast/concentration: Isovue 350.00 mmol/ml; Total Contrast Delivered: 53. 0 ml; Total Saline Delivered: 65.1 ml Contrast bolus adequate for pulmonary arteries and aorta. RENAL FUNCTION: BUN 40 creatinine 0.92 RADIATION DOSE: CT Rad equipment meets quality standard of care and radiation dose reduction techniq ues were employed. CTDIvol: 9.9 - 14.7 mGy. DLP: 513 mGy-cm. . LIMITATIONS: Less than optimal opacification of the pulmonary arteries. FINDINGS: LUNGS AND PLEURA: Right side infrahilar mass a is somewhat irregular and heterogeneous. T here is mass now measures 48.8 x 34.7 mm, an increase in size. There is peripheral opacification in the right lower lobe that becomes masslike and pleural-based on image 87. This has a rounded configu ration and measures 26.9 x 40 mm. This is heterogeneous. There is additional nodularity inferior to this in the posterior costophrenic sulcus. AORTA AND GREAT VESSELS: No aneurysm. No dissection. HEART: No pericardial effusion. Moderate to marked coronary artery calcifications. PULMONARY ARTERIES: No large or central pulmonary emboli are appreciated. Evaluation is slightly mendiola ited. HILAR AND MEDIASTINAL STRUCTURES: No identified masses or abnormal nodes. HARDWARE: None in the chest. UPPER ABDOMEN: No significant findings. Limited exam. THYROID AND OTHER SOFT TISSUES: No masses. No adenopathy. BONES: No acute or significant finding. 3D MIPS: Confirm above findings. OTHER: No other significant finding. IMPRESSION: 1. There is no aortic aneurysm or dissection. There is no central pulmonary embolus. Evaluation of the pulmonary arteries is limited. 2. Increase in size of irregular right infrahilar mass. 3. Increased disease in the right lower lobe, pneumonia versus neoplasm versus atelectasis. COMMENT: Quality ID # [id number]: Final reports with documentation of one or more dose reduction techniques (e.g., Automated exposure control, adjustment of the mA and/or kV according to patient size, use of iterative reconstruction technique) TECHNICAL DOCUMENTATION: JOB ID: [id number] 2010 [employer]- All Rights Reserved Reading location - IP/workstation name: [email or web address]
[2019-12-22] MEDS: INSULIN LISPRO 100 UNIT/ML 3 ML VIAL SUBCUT SCH ×2 (17:37→22:02)
--- NOTE | 2019-12-22 20:42 | PDOC PROGRESS REPORT ---
Subjective Progress Note for:: 12/22/19 Subjective:: Patient seen by the bedside, CT angiogram was done today, it demonstrated right side infrahilar mass somewhat irregular and Heterogeneous, the mass now measures 42.8 x 34.7 mm, increase in size from prior size. There is peripheral opacification in the right lower lobe that becomes masslike and pleural-based also from with a rounded configuration and measures 26.9 x 40 mm. I discussed this finding with patient's family, patient is very frail with poor functional, I am not sure he will be a good candidate for further treatment, I will consult oncology for guidance Reason For Visit: SUSPECT COVID PNEUMONIA,H/O LUNG CANCER,COPD, Physical Exam Vital Signs: Temp Pulse Resp BP Pulse Ox 97.9 F 83 18 119/94 H 99 12/22/19 17:39 12/22/19 17:39 12/22/19 17:39 12/22/19 17:39 12/22/19 17:39 Intake & Output 12/21/19 12/22/19 12/23/19 06:59 06:59 06:59 Intake Total 2050 1550 Output Total 1500 1250 Balance 550 300 Weight 65.3 kg General appearance: PRESENT: no acute distress Eye exam: PRESENT: PERRLA Respiratory exam: PRESENT: rhonchi Cardiovascular exam: PRESENT: +S1, +S2 GI/Abdominal exam: PRESENT: soft Neurological exam: PRESENT: alert Results Laboratory Results: 12/21/19 14:38 12/21/19 22:46 12/21/19 12/21/19 12/22/19 22:46 22:46 01:51 Sodium 132.8 L Potassium 4.7 Chloride 100 Carbon Dioxide 23 Anion Gap 10 BUN 40 H Creatinine 0.92 Est GFR ( Amer) > 60 Glucose 249 H Lactic Acid 1.6 1.6 Calcium 9.4 Ferritin 704.00 H Total Bilirubin 0.2 AST 15 L Alkaline Phosphatase 83 C-Reactive Protein 20.3 H Total Protein 6.5 Albumin 3.3 L 12/21/19 12/21/19 12/21/19 14:38 22:46 22:46 Creatine Kinase < 20 L Troponin I < 0.012 < 0.012 Impressions: Chest X-Ray 12/21/19 14:26 IMPRESSION: Patchy right basilar airspace disease compatible with pneumonia. Head CT 12/21/19 14:41 IMPRESSION: CHRONIC CHANGES OF ATROPHY AND MICROVASCULAR ISCHEMIA. NO ACUTE PROCESS. EVIDENCE OF ACUTE STROKE: NO. Chest/Abdomen CTA 12/22/19 00:00 IMPRESSION: 1. There is no aortic aneurysm or dissection. There is no central pulmonary embolus. Evaluation of the pulmonary arteries is limited. 2. Increase in size of irregular right infrahilar mass. 3. Increased disease in the right lower lobe, pneumonia versus neoplasm versus atelectasis. 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 Ko for guidance, was treated with radiation and chemotherapy, patient is very frail - Time Time Spent with patient: 35 or more minutes Level of Care: IMCU Medications reviewed and adjusted accordingly: Yes Anticipated discharge: Home Anticipated DC Timeframe: when bed available - Inpatient Certification Based on my medical assessment, after consideration of the patient's comorbidities, presenting symptoms, or acuity I expect that the services needed warrant INPATIENT care.: Yes I certify that my determination is in accordance with my understanding of Medicare's requirements for reasonable and necessary INPATIENT services [42 CFR 412.3e].: Yes
[2019-12-22] MEDS: INSULIN GLARGINE,HUM.REC.ANLOG 1,000 UNIT/10 ML VIAL SUBCUT SCH (22:02)
--- NOTE | 2019-12-23 07:50 | PDOC CONSULTATION ---
Consultation Consult Date: 12/23/19 Attending physician:: MARLEN DENTON Provider Consulted: PASCUAL GUTIERREZ Consult reason:: Patient presenting with weakness, confusion, symptoms of pneumonia in the setting of lung cancer History of Present Illness Admission Date/PCP: 12/21/19 17:25 PASCUAL GUTIERREZ MD Patient complains of: Weakness, confusion History of Present Illness: This visit was done via teleconference per Medicare [email or web address] guidelines because of Covid restrictions, patient agreed to go forward with the interview CORA GARCIA SR is a 84 year old male with known history of stage III lung cancer, receiving concurrent chemoradiation. Unfortunately has been recently very weak, lethargic, he did receive completion of concurrent chemoradiation a few weeks ago and was given first dose of consolidation chemotherapy. Thereaf ter he was found to be disheveled, weak, and his own feces, and was brought to the ED. Here he was weak, hypoxic, has been treated thus far with pneumonia. Recently had CTA of the chest done which does note increased infrahilar mass but in my review it is pretty similar. Some of the other changes/consolidations are improved. This morning, I spoke to him over teleconference and he seemed to be doing better, his voice seems stronger. He does have an increased level of dementia over the last few months, and so does not remember much. His primary medical power of workers compensation defense attorney is his daughter who accompanies him to most visits. Past Medical History Cardiac Medical History: Reports: Coronary Artery Disease, Myocardial Infarction, Hyperlipidema, Hypertension, Peripheral Vascular Disease Pulmonary Medical History: Denies: Tuberculosis Endocrine Medical History: Reports: Diabetes Mellitus Type 2 Malignancy Medical History: Reports: Lung Cancer Psychiatric Medical History: Reports: Depression Past Surgical History Past Surgical History: Reports: Coronary Stent Social History Information Source: Patient Smoking Status: Former Smoker Number of Years Smokin Frequency of Alcohol Use: None Hx Recreational Drug Use: No Drugs: None Hx Prescription Drug Abuse: No - Advance Directive Resuscitation Status: Full Code Family History Family History: Reviewed & Not Pertinent Parental Family History Reviewed: Yes Children Family History Reviewed: Yes Sibling(s) Family History Reviewed.: Yes Medication/Allergy Home Medications: Citalopram Hydrobromide [Celexa 40 mg Tablet] 40 mg PO DAILY 07/16/12 Clopidogrel Bisulfate [Plavix 75 mg Tablet] 75 mg PO DAILY 07/16/12 Simvastatin [Zocor 20 mg Tablet] 20 mg PO QHS 07/16/12 Tamsulosin HCl [Flomax] 0.4 mg PO DAILY 08/03/13 Finasteride [Proscar 5 mg Tablet] 5 mg PO DAILY 07/10/19 Allergies/Adverse Reactions: aspirin [Aspirin] Allergy (Unknown, Verified 09/24/19 07:45) Review of Systems Constitutional: ABSENT: chills, fever(s), headache(s), weight gain, weight loss Eyes: ABSENT: visual disturbances Ears: ABSENT: hearing changes Cardiovascular: ABSENT: chest pain, dyspnea on exertion, edema, orthropnea, palpitations Respiratory: ABSENT: cough, hemoptysis Gastrointestinal: ABSENT: abdominal pain, constipation, diarrhea, hematemesis, hematochezia, nausea, vomiting Genitourinary: ABSENT: dysuria, hematuria Musculoskeletal: ABSENT: joint swelling Integumentary: ABSENT: rash, wounds Neurological: ABSENT: abnormal gait, abnormal speech, confusion, dizziness, focal weakness, syncope Psychiatric: ABSENT: anxiety, depression, homidical ideation, suicidal ideation Endocrine: ABSENT: cold intolerance, heat intolerance, polydipsia, polyuria Hematologic/Lymphatic: ABSENT: easy bleeding, easy bruising Physical Exam Vital Signs: Temp Pulse Resp BP Pulse Ox 98.1 F 80 17 120/63 100 12/23/19 03:20 12/23/19 03:20 12/23/19 03:20 12/23/19 03:20 12/23/19 03:20 Intake & Output 12/22/19 12/23/19 12/24/19 06:59 06:59 06:59 Intake Total 2050 3070 Output Total 1500 3250 Balance 550 -180 Weight 65.3 kg 65.3 kg General appearance: PRESENT: no acute distress, well-developed, well-nourished Head exam: PRESENT: atraumatic, normocephalic Eye exam: PRESENT: conjunctiva pink, EOMI, PERRLA. ABSENT: scleral icterus Ear exam: PRESENT: normal external ear exam Mouth exam: PRESENT: moist, tongue midline Neck exam: ABSENT: carotid bruit, JVD, lymphadenopathy, thyromegaly Respiratory exam: PRESENT: clear to auscultation keegan. ABSENT: rales, rhonchi, wheezes Cardiovascular exam: PRESENT: RRR. ABSENT: diastolic murmur, rubs, systolic murmur Pulses: PRESENT: normal dorsalis pedis pul Vascular exam: PRESENT: normal capillary refill GI/Abdominal exam: PRESENT: normal bowel sounds, soft. ABSENT: distended, guarding, mass, organolmegaly, rebound, tenderness Rectal exam: PRESENT: deferred Extremities exam: PRESENT: full ROM. ABSENT: calf tenderness, clubbing, pedal edema Neurological exam: PRESENT: alert, awake, oriented to person, oriented to place, oriented to time, oriented to situation, CN II-XII grossly intact. ABSENT: motor sensory deficit Psychiatric exam: PRESENT: appropriate affect, normal mood. ABSENT: homicidal ideation, suicidal ideation Skin exam: PRESENT: dry, intact, warm. ABSENT: cyanosis, rash Results Laboratory Results: 12/21/19 14:38 12/21/19 22:46 12/21/19 12/21/19 12/21/19 14:38 22:46 22:46 Creatine Kinase < 20 L Troponin I < 0.012 < 0.012 Impressions: Chest X-Ray 12/21/19 14:26 IMPRESSION: Patchy right basilar airspace disease compatible with pneumonia. Head CT 12/21/19 14:41 IMPRESSION: CHRONIC CHANGES OF ATROPHY AND MICROVASCULAR ISCHEMIA. NO ACUTE PROCESS. EVIDENCE OF ACUTE STROKE: NO. Chest/Abdomen CTA 12/22/19 00:00 IMPRESSION: 1. There is no aortic aneurysm or dissection. There is no central pulmonary embolus. Evaluation of the pulmonary arteries is limited. 2. Increase in size of irregular right infrahilar mass. 3. Increased disease in the right lower lobe, pneumonia versus neoplasm versus atelectasis. Status: Image reviewed by me Assessment & Plan - Diagnosis (1) Lung cancer Qualifiers: Laterality: right Lung location: middle lobe of lung Qualified Code(s): C34.2 - Malignant neoplasm of middle lobe, bronchus or lung Is this a current diagnosis for this admission?: Yes Plan: Stage III lung cancer status post concurrent chemoradiation. I have asked juan sing to get him up and move them around to see how he does. He is not gotten up since admission. If he is mostly bedbound at this time, he would not be a candidate for further therapy. I will discuss this with his daughter who is his medical power of workers compensation defense attorney. Unfortunately her name is not listed in [facility]'s chart, but we do have her contact information in office. He may benefit from a rehab stay. But I will discuss this further with his family. (2) Pneumonia Qualifiers: Pneumonia type: due to unspecified organism Laterality: bilateral Lung location: lower lobe of lung Qualified Code(s): J18.9 - Pneumonia, unspecified organism Is this a current diagnosis for this admission?: Yes Plan: Continue with current antibiotic regimen, he probably does have some postobstructive component ongoing (3) Person under investigation for COVID-19 Is this a current diagnosis for this admission?: Yes Plan: Ruled out, Covid has been ruled out but still on the Covid unit, once he is off the Covid unit we will see him in person. - Time Time Spent: Greater than 70 Minutes - Inpatient Certification Based on my medical assessment, after consideration of the patient's comorbidities, presenting symptoms, or acuity I expect that the services needed warrant INPATIENT care.: Yes I certify that my determination is in accordance with my understanding of Medicare's requirements for reasonable and necessary INPATIENT services [42 CFR 412.3e].: Yes Medical Necessity: Need for IV Antibiotics, Risk of Complication if Not Cared For in Hospital
[2019-12-23] MEDS: ENOXAPARIN SODIUM INJ 40 MG/0.4 ML DISP.SYRIN SUBCUT SCH (09:22)
[2019-12-23] MEDS: NORMAL SALINE 1000 ML 1,000 ML IV PRN ×2 (09:22→17:19)
[2019-12-23] MEDS: INSULIN LISPRO 100 UNIT/ML 3 ML VIAL SUBCUT SCH ×4 (09:22→21:58)
[2019-12-23] MEDS: CEFTRIAXONE 1 GM/D5W RTU 1 GM/50 ML RTUPB IV SCH (09:22)
[2019-12-23] MEDS: CHOLECALCIFEROL (D3) 1,000 UNIT (25 MCG) TABLET PO SCH (09:23)
[2019-12-23] MEDS: ASCORBIC ACID 500 MG TABLET PO SCH ×2 (09:23→17:17)
[2019-12-23] MEDS: ZINC SULFATE 220 MG CAPSULE PO SCH (09:23)
[2019-12-23] MEDS: TAMSULOSIN HCL 0.4 MG CAP.SR.24H PO SCH (09:23)
[2019-12-23] MEDS: FINASTERIDE 5 MG TABLET PO SCH (09:23)
--- NOTE | 2019-12-23 15:30 | PDOC PROGRESS REPORT ---
Subjective Progress Note for:: 12/23/19 Subjective:: Patient seen by the bedside, I spoke to Dr. Ko, oncologist, patient is deconditioned, he needs to go for rehab For muscle strengthening Reason For Visit: SUSPECT COVID PNEUMONIA,H/O LUNG CANCER,COPD, Physical Exam Vital Signs: Temp Pulse Resp BP Pulse Ox 97.5 F 77 18 132/62 H 100 12/23/19 08:33 12/23/19 14:00 12/23/19 08:33 12/23/19 08:33 12/23/19 08:33 Intake & Output 12/22/19 12/23/19 12/24/19 06:59 06:59 06:59 Intake Total 2050 3070 1050 Output Total 1500 3250 Balance 550 -180 1050 Weight 65.3 kg 65.3 kg General appearance: PRESENT: no acute distress Eye exam: PRESENT: PERRLA Respiratory exam: PRESENT: clear to auscultation keegan Cardiovascular exam: PRESENT: +S1, +S2 GI/Abdominal exam: PRESENT: soft Neurological exam: PRESENT: alert Results Laboratory Results: 12/21/19 14:38 12/21/19 22:46 12/21/19 12/21/19 12/21/19 14:38 22:46 22:46 Creatine Kinase < 20 L Troponin I < 0.012 < 0.012 Impressions: Chest X-Ray 12/21/19 14:26 IMPRESSION: Patchy right basilar airspace disease compatible with pneumonia. Head CT 12/21/19 14:41 IMPRESSION: CHRONIC CHANGES OF ATROPHY AND MICROVASCULAR ISCHEMIA. NO ACUTE PROCESS. EVIDENCE OF ACUTE STROKE: NO. Chest/Abdomen CTA 12/22/19 00:00 IMPRESSION: 1. There is no aortic aneurysm or dissection. There is no central pulmonary embolus. Evaluation of the pulmonary arteries is limited. 2. Increase in size of irregular right infrahilar mass. 3. Increased disease in the right lower lobe, pneumonia versus neoplasm versus atelectasis. 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 Qualifiers: Diabetes mellitus terminal clerk insulin use: with terminal clerk use Qualified Code(s): E11.42 - Type 2 diabetes mellitus with diabetic polyneuropathy; Z79.4 - shelter (current) use of insulin Is this a current diagnosis for this admission?: Yes (3) Person under investigation for COVID-19 Is this a current diagnosis for this admission?: Yes Plan: Rule out SARS-Cov 2 (4) Malignant neoplasm of unspecified part of right bronchus or lung Is this a current diagnosis for this admission?: Yes - Time Time Spent with patient: 15-24 minutes Level of Care: ICU Medications reviewed and adjusted accordingly: Yes - Inpatient Certification Based on my medical assessment, after consideration of the patient's comorbidities, presenting symptoms, or acuity I expect that the services needed warrant INPATIENT care.: Yes I certify that my determination is in accordance with my understanding of Medicare's requirements for reasonable and necessary INPATIENT services [42 CFR 412.3e].: Yes
[2019-12-23] MEDS: INSULIN GLARGINE,HUM.REC.ANLOG 1,000 UNIT/10 ML VIAL SUBCUT SCH (21:59)
[2019-12-24] MEDS: NORMAL SALINE 1000 ML 1,000 ML IV PRN ×2 (02:57→23:17)
[2019-12-24] MEDS ORDERED: INFLUENZA QUAD (6MOS+) 2020-21 VAC 0.5 ML SYR IM ONE (08:00)
--- NOTE | 2019-12-24 08:05 | PDOC PROGRESS REPORT ---
Subjective Progress Note for:: 12/24/19 Subjective:: No acute events overnight, being eval by kaitlin monroy for rehab Reason For Visit: SUSPECT COVID PNEUMONIA,H/O LUNG CANCER,COPD, Physical Exam Vital Signs: Temp Pulse Resp BP Pulse Ox 97.6 F 82 16 113/65 82 L 12/23/19 15:02 12/24/19 07:00 12/23/19 15:02 12/23/19 15:02 12/23/19 15:02 Intake & Output 12/23/19 12/24/19 12/25/19 06:59 06:59 06:59 Intake Total 3070 3840 Output Total 3250 3720 Balance -180 120 Weight 65.3 kg 64.1 kg General appearance: PRESENT: no acute distress, well-developed, well-nourished Head exam: PRESENT: atraumatic, normocephalic Eye exam: PRESENT: conjunctiva pink, EOMI, PERRLA. ABSENT: scleral icterus Ear exam: PRESENT: normal external ear exam Mouth exam: PRESENT: moist, tongue midline Neck exam: ABSENT: carotid bruit, JVD, lymphadenopathy, thyromegaly Respiratory exam: PRESENT: clear to auscultation keegan. ABSENT: rales, rhonchi, wheezes Cardiovascular exam: PRESENT: RRR. ABSENT: diastolic murmur, rubs, systolic murmur Pulses: PRESENT: normal dorsalis pedis pul Vascular exam: PRESENT: normal capillary refill GI/Abdominal exam: PRESENT: normal bowel sounds, soft. ABSENT: distended, guarding, mass, organolmegaly, rebound, tenderness Rectal exam: PRESENT: deferred Extremities exam: PRESENT: full ROM. ABSENT: calf tenderness, clubbing, pedal edema Neurological exam: PRESENT: alert, awake, oriented to person, oriented to place, oriented to time, oriented to situation, CN II-XII grossly intact. ABSENT: motor sensory deficit Psychiatric exam: PRESENT: appropriate affect, normal mood. ABSENT: homicidal i deation, suicidal ideation Skin exam: PRESENT: dry, intact, warm. ABSENT: cyanosis, rash Results Laboratory Results: 12/21/19 14:38 12/21/19 22:46 12/21/19 12/21/19 12/21/19 14:38 22:46 22:46 Creatine Kinase < 20 L Troponin I < 0.012 < 0.012 Impressions: Chest X-Ray 12/21/19 14:26 IMPRESSION: Patchy right basilar airspace disease compatible with pneumonia. Head CT 12/21/19 14:41 IMPRESSION: CHRONIC CHANGES OF ATROPHY AND MICROVASCULAR ISCHEMIA. NO ACUTE PROCESS. EVIDENCE OF ACUTE STROKE: NO. Chest/Abdomen CTA 12/22/19 00:00 IMPRESSION: 1. There is no aortic aneurysm or dissection. There is no central pulmonary embolus. Evaluation of the pulmonary arteries is limited. 2. Increase in size of irregular right infrahilar mass. 3. Increased disease in the right lower lobe, pneumonia versus neoplasm versus atelectasis. Assessment & Plan - Diagnosis (1) Lung cancer Qualifiers: Laterality: right Lung location: middle lobe of lung Qualified Code(s): C34.2 - Malignant neoplasm of middle lobe, bronchus or lung Is this a current diagnosis for this admission?: Yes Plan: Will not plan any further chemo or rx for cancer until pt home from rehab, agree w/ rehab stay and believe he will benefit from it (2) Pneumonia Qualifiers: Pneumonia type: due to unspecified organism Laterality: bilateral Lung location: lower lobe of lung Qualified Code(s): J18.9 - Pneumonia, unspecified organism Is this a current diagnosis for this admission?: Yes Plan: Atbx per Dr. Moore - Time Time Spent with patient: 25-34 minutes
[2019-12-24] MEDS: INSULIN LISPRO 100 UNIT/ML 3 ML VIAL SUBCUT SCH ×4 (08:40→23:16)
[2019-12-24] MEDS: CEFTRIAXONE 1 GM/D5W RTU 1 GM/50 ML RTUPB IV SCH (10:57)
[2019-12-24] MEDS: ENOXAPARIN SODIUM INJ 40 MG/0.4 ML DISP.SYRIN SUBCUT SCH (10:57)
[2019-12-24] MEDS: ASCORBIC ACID 500 MG TABLET PO SCH ×2 (10:58→18:49)
[2019-12-24] MEDS: TAMSULOSIN HCL 0.4 MG CAP.SR.24H PO SCH (10:58)
[2019-12-24] MEDS: FINASTERIDE 5 MG TABLET PO SCH (10:58)
[2019-12-24] MEDS: CHOLECALCIFEROL (D3) 1,000 UNIT (25 MCG) TABLET PO SCH (10:58)
[2019-12-24] MEDS: ZINC SULFATE 220 MG CAPSULE PO SCH (10:58)
--- NOTE | 2019-12-24 19:05 | PDOC PROGRESS REPORT ---
Subjective Progress Note for:: 12/24/19 Subjective:: Patient seen by the bedside, I spoke to Dr. Ko, oncologist, patient is deconditioned, he needs to go for rehab For muscle strengthening Reason For Visit: SUSPECT COVID PNEUMONIA,H/O LUNG CANCER,COPD, Physical Exam Vital Signs: Temp Pulse Resp BP Pulse Ox 97.6 F 96 17 95/52 L 100 12/24/19 15:43 12/24/19 15:43 12/24/19 15:43 12/24/19 15:43 12/24/19 15:43 Intake & Output 12/23/19 12/24/19 12/25/19 06:59 06:59 06:59 Intake Total 3070 3840 287 Output Total 3250 3720 800 Balance -180 120 -513 Weight 65.3 kg 64.1 kg 64.1 kg General appearance: PRESENT: no acute distress Eye exam: PRESENT: PERRLA Cardiovascular exam: PRESENT: +S1, +S2 GI/Abdominal exam: PRESENT: soft Neurological exam: PRESENT: alert, CN II-XII grossly intact Results Laboratory Results: 12/21/19 14:38 12/21/19 22:46 12/21/19 19:06 Throat Throat Culture - Final NORMAL KIERA 12/21/19 12/21/19 12/21/19 14:38 22:46 22:46 Creatine Kinase < 20 L Troponin I < 0.012 < 0.012 Impressions: Chest X-Ray 12/21/19 14:26 IMPRESSION: Patchy right basilar airspace disease compatible with pneumonia. Head CT 12/21/19 14:41 IMPRESSION: CHRONIC CHANGES OF ATROPHY AND MICROVASCULAR ISCHEMIA. NO ACUTE PROCESS. EVIDENCE OF ACUTE STROKE: NO. Chest/Abdomen CTA 12/22/19 00:00 IMPRESSION: 1. There is no aortic aneurysm or dissection. There is no central pulmonary embolus. Evaluation of the pulmonary arteries is limited. 2. Increase in size of irregular right infrahilar mass. 3. Increased disease in the right lower lobe, pneumonia versus neoplasm versus atelectasis. Assessment & Plan - Diagnosis (1) Pneumonia Qualifiers: Pneumonia type: due to unspecified organism Laterality: bilateral Lung location: lower lobe of lung Qualified Code(s): J18.9 - Pneumonia, unspecified organism Is this a current diagnosis for this admission?: Yes Plan: (2) Type 2 diabetes mellitus with diabetic polyneuropathy Qualifiers: Diabetes mellitus tongue presser insulin use: with tongue presser use Qualified Code(s): E11.42 - Type 2 diabetes mellitus with diabetic polyneuropathy; Z79.4 - switch tender (current) use of insulin Is this a current diagnosis for this admission?: Yes (3) Person under investigation for COVID-19 Is this a current diagnosis for this admission?: Yes (4) Malignant neoplasm of unspecified part of right bronchus or lung Is this a current diagnosis for this admission?: Yes - Time Time Spent with patient: 25-34 minutes Level of Care: IMCU Medications reviewed and adjusted accordingly: Yes Anticipated discharge: SNF Anticipated DC Timeframe: within 24 hours
--- NOTE | 2019-12-24 19:39 | PDOC TRANSFER SUMMARY ---
Impression - Admit/DC Date/PCP Admission Date/Primary Care Provider: 12/21/19 17:25 PASCUAL GUTIERREZ MD Discharge Date: 12/25/19 - Patient does not have pneumonia - Discharge Diagnosis (1) Malignant neoplasm of unspecified part of right bronchus or lung Is this a current diagnosis for this admission?: Yes (2) Type 2 diabetes mellitus with diabetic polyneuropathy Is this a current diagnosis for this admission?: Yes (3) Physical deconditioning Is this a current diagnosis for this admission?: Yes - Additional Information Resuscitation Status: Full Code Referrals: PASCUAL GUTIERREZ MD [Primary Care Provider] - Follow up as needed Home Medications: Citalopram Hydrobromide [Celexa 40 mg Tablet] 40 mg PO DAILY 07/16/12 Clopidogrel Bisulfate [Plavix 75 mg Tablet] 75 mg PO DAILY 07/16/12 Tamsulosin HCl [Flomax] 0.4 mg PO DAILY 08/03/13 Finasteride [Proscar 5 mg Tablet] 5 mg PO DAILY 07/10/19 Acetaminophen [Tylenol 325 mg Tablet] 650 mg PO Q4HP PRN tablet 12/24/19 Ascorbic Acid [Vitamin C 500 mg Tablet] 500 mg PO BID tablet 12/24/19 Cholecalciferol (Vitamin D3) [Vitamin D3 1000 Unit Tablet] 2,000 unit PO DAILY tablet 12/24/19 Glucagon,Human Recombinant [Glucagen Inj 1 mg Vial] 1 mg IM PRN PRN vial 12/24/19 Insulin Glargine,Hum.rec.anlog [Lantus Insulin 100 Unit/1 ml 10 ml] 10 unit SUBCUT QHS unit 12/24/19 Insulin Lispro [Humalog Insulin (Lispro) 100 unit/mL] 0 - 12 unit SUBCUT ACHS unit 12/24/19 Zinc Sulfate [Zinc-220 Capsule] 220 mg PO DAILY capsule 12/24/19 History of Present Illiness History of Present Illness: CORA GARCIA SR is a 84 year old male He has history of malignant neoplasm of the left lung status post radiation therapy and chemotherapy. Family stated that patient has been very fatigued ,his function has declined in the last 4 days, he has not been able to get out of bed to go to the bathroom by himself. There is cough, low-grade fever. History taking is somewhat challenging, chest x-ray that was done suggest pneumonia, the markers of inflammation are elevated, CRP, ferritin Family said he has not been eating or drinking ,his condition is declining Hospital Course Hospital Course: Patient was admitted for management of presumptive pneumonia, CT angiogram of the chest was done, it demonstrated worsening lung cancer in the right lower lobe. Patient already had chemotherapy and radiation therapy. He is extremely deconditioned, condition is declining, consultation was requested from oncology, it was felt that patient needed physical therapy for muscle strengthening before he could resume cancer treatment. Initially when he was admitted he was isolated because SARS-CoV-2 needed to be ruled out. He was empirically treated with dexamethasone until results came back negative, he also was empirically treated with IV antibiotic for pneumonia but the CT scan that was done did not demonstrate any pneumonia Physical Exam Vital Signs: Temp Pulse Resp BP Pulse Ox 97.6 F 96 17 95/52 L 100 12/24/19 15:43 12/24/19 15:43 12/24/19 15:43 12/24/19 15:43 12/24/19 15:43 Intake & Output 12/23/19 12/24/19 12/25/19 06:59 06:59 06:59 Intake Total 3070 3840 287 Output Total 3250 3720 800 Balance -180 120 -513 Weight 65.3 kg 64.1 kg 64.1 kg General appearance: PRESENT: no acute distress Eye exam: PRESENT: PERRLA Respiratory exam: PRESENT: clear to auscultation keegan Cardiovascular exam: PRESENT: +S1, +S2 GI/Abdominal exam: PRESENT: soft Neurological exam: PRESENT: alert Results Laboratory Results: WBC 11.9 10^3/uL (4.0-10.5) H 12/21/19 14:38 RBC 4.77 10^6/uL (4.35-5.55) 12/21/19 14:38 Hgb 14.3 g/dL (13.5-17.0) 12/21/19 14:38 Hct 42.7 % (37.9-51.0) 12/21/19 14:38 MCV 90 fl (80-97) 12/21/19 14:38 MCH 30.0 pg (27.0-33.4) 12/21/19 14:38 MCHC 33.5 g/dL (32.0-36.0) 12/21/19 14:38 RDW 16.1 % (11.5-14.0) H 12/21/19 14:38 Plt Count 394 10^3/uL (150-450) 12/21/19 14:38 Lymph % (Auto) Not Reportable 12/21/19 14:38 [place] % (Auto) Not Reportable 12/21/19 14:38 Eos % (Auto) Not Reportable 12/21/19 14:38 Baso % (Auto) Not Reportable 12/21/19 14:38 Absolute Neuts (auto) Not Reportable 12/21/19 14:38 Absolute Lymphs (auto) Not Reportable 12/21/19 14:38 Absolute Monos (auto) Not Reportable 12/21/19 14:38 Absolute Eos (auto) Not Reportable 12/21/19 14:38 Absolute Basos (auto) Not Reportable 12/21/19 14:38 Total Counted 100 12/21/19 14:38 Seg Neutrophils % Not Reportable 12/21/19 14:38 Seg Neuts % (Manual) 87 % (42-78) H 12/21/19 14:38 Lymphocytes % (Manual) 7 % (13-45) L 12/21/19 14:38 Monocytes % (Manual) 6 % (3-13) 12/21/19 14:38 Eosinophils % (Manual) 0 % (0-6) 12/21/19 14:38 Basophils % (Manual) 0 % (0-2) 12/21/19 14:38 Abs Neuts (Manual) 10.4 10^3/uL (1.7-8.2) H 12/21/19 14:38 Abs Lymphs (Manual) 0.8 10^3/uL (0.5-4.7) 12/21/19 14:38 Abs Monocytes (Manual) 0.7 10^3/uL (0.1-1.4) 12/21/19 14:38 Absolute Eos (Manual) 0.0 10^3/uL (0.0-0.6) 12/21/19 14:38 Abs Basophils (Manual) 0.0 10^3/uL (0.0-0.2) 12/21/19 14:38 Platelet Comment ADEQUATE 12/21/19 14:38 RBC Morph Comment NORMO-CYTIC/CHROMIC 12/21/19 14:38 PT 15.1 SEC (11.4-15.4) 12/21/19 22:46 INR 1.17 12/21/19 22:46 APTT 31.1 SEC (23.5-35.8) 12/21/19 22:46 Fibrinogen 490 mg/dL (209-497) 12/21/19 22:46 D-Dimer 2.24 ug/mL (0.00-0.50) H 12/21/19 22:46 VBG pH 7.37 (7.30-7.42) 12/21/19 14:38 VBG pCO2 46.4 mmHg (35-63) 12/21/19 14:38 VBG HCO3 26.4 mmol/L (20-32) 12/21/19 14:38 VBG Base Excess 0.7 mmol/L 12/21/19 14:38 Sodium 132.8 mmol/L (137-145) L 12/21/19 22:46 Potassium 4.7 mmol/L (3.6-5.0) 12/21/19 22:46 Chloride 100 mmol/L (98-107) 12/21/19 22:46 Carbon Dioxide 23 mmol/L (22-30) 12/21/19 22:46 Anion Gap 10 (5-19) 12/21/19 22:46 BUN 40 mg/dL (7-20) H 12/21/19 22:46 Creatinine 0.92 mg/dL (0.52-1.25) 12/21/19 22:46 Est GFR ( Amer) > 60 (>60) 12/21/19 22:46 Est GFR (MDRD) Non-Af > 60 (>60) 12/21/19 22:46 Glucose 249 mg/dL (75-110) H 12/21/19 22:46 POC Glucose 257 mg/dL (70-110) H 12/24/19 16:13 Lactic Acid 1.6 mmol/L (0.7-2.1) 12/22/19 01:51 Calcium 9.4 mg/dL (8.4-10.2) 12/21/19 22:46 Ferritin 704.00 ng/mL (17.9-464.0) H 12/21/19 22:46 Total Bilirubin 0.2 mg/dL (0.2-1.3) 12/21/19 22:46 Direct Bilirubin 0.0 mg/dL (0.0-0.4) 12/21/19 22:46 Neonat Total Bilirubin Not Reportable 12/21/19 22:46 Neonat Direct Bilirubin Not Reportable 12/21/19 22:46 Neonat Indirect Bili Not Reportable 12/21/19 22:46 AST 15 U/L (17-59) L 12/21/19 22:46 ALT 13 U/L (<50) 12/21/19 22:46 Alkaline Phosphatase 83 U/L (38-126) 12/21/19 22:46 Lactate Dehydrogenase 145 U/L (120-246) 12/21/19 22:46 Creatine Kinase < 20 U/L (55-170) L 12/21/19 22:46 Troponin I < 0.012 ng/mL 12/21/19 22:46 C-Reactive Protein 20.3 mg/L (<10.0) H 12/21/19 22:46 Total Protein 6.5 g/dL (6.3-8.2) 12/21/19 22:46 Albumin 3.3 g/dL (3.5-5.0) L 12/21/19 22:46 Urine Color STRAW 12/21/19 14:38 Urine Appearance CLEAR 12/21/19 14:38 Urine pH 5.0 (5.0-9.0) 12/21/19 14:38 Ur Specific [place] 1.025 12/21/19 14:38 Urine Protein NEGATIVE mg/dL (NEGATIVE) 12/21/19 14:38 Urine Glucose (UA) >=500 mg/dL (NEGATIVE) H 12/21/19 14:38 Urine Ketones NEGATIVE mg/dL (NEGATIVE) 12/21/19 14:38 Urine Blood NEGATIVE (NEGATIVE) 12/21/19 14:38 Urine Nitrite (Reflex) NEGATIVE (NEGATIVE) 12/21/19 14:38 Urine Bilirubin NEGATIVE (NEGATIVE) 12/21/19 14:38 Urine Urobilinogen NEGATIVE mg/dL (<2.0) 12/21/19 14:38 Leukocyte Esterase Rfl NEGATIVE (NEGATIVE) 12/21/19 14:38 Urine RBC (Auto) 0 /HPF 12/21/19 14:38 Urine WBC (Reflex) < 1 /HPF 12/21/19 14:38 Squamous Epi Cells Auto <1 /HPF 12/21/19 14:38 Urine Mucus (Auto) RARE /LPF 12/21/19 14:38 Urine Ascorbic Acid NEGATIVE (NEGATIVE) 12/21/19 14:38 COVID-19 Source See comment 12/21/19 17:00 COVID-19 (LAVONNE) Not Detected (Not Detect) 12/21/19 17:00 Influenza A (Rapid) NEGATIVE (NEGATIVE) 12/21/19 19:06 Influenza B (Rapid) NEGATIVE (NEGATIVE) 12/21/19 19:06 Group A Strep Rapid NEGATIVE (NEGATIVE) 12/21/19 19:06 12/21/19 12/21/19 14:38 22:46 Troponin I < 0.012 < 0.012 Impressions: Chest X-Ray 12/21/19 14:26 IMPRESSION: Patchy right basilar airspace disease compatible with pneumonia. Head CT 12/21/19 14:41 IMPRESSION: CHRONIC CHANGES OF ATROPHY AND MICROVASCULAR ISCHEMIA. NO ACUTE PROCESS. EVIDENCE OF ACUTE STROKE: NO. Chest/Abdomen CTA 12/22/19 00:00 IMPRESSION: 1. There is no aortic aneurysm or dissection. There is no central pulmonary embolus. Evaluation of the pulmonary arteries is limited. 2. Increase in size of irregular right infrahilar mass. 3. Increased disease in the right lower lobe, pneumonia versus neoplasm versus atelectasis. Stroke Is this a Stroke Patient?: No Acute Heart Failure Is this a Heart Failure Patient?: No
[2019-12-24] MEDS: INSULIN GLARGINE,HUM.REC.ANLOG 1,000 UNIT/10 ML VIAL SUBCUT SCH (23:16)
[2019-12-25] MEDS: INSULIN LISPRO 100 UNIT/ML 3 ML VIAL SUBCUT SCH (09:34)
[2019-12-25] MEDS: CEFTRIAXONE 1 GM/D5W RTU 1 GM/50 ML RTUPB IV SCH (09:38)
[2019-12-25] MEDS: TAMSULOSIN HCL 0.4 MG CAP.SR.24H PO SCH (09:49)
[2019-12-25] MEDS: ASCORBIC ACID 500 MG TABLET PO SCH (09:49)
[2019-12-25] MEDS: ENOXAPARIN SODIUM INJ 40 MG/0.4 ML DISP.SYRIN SUBCUT SCH (09:49)
[2019-12-25] MEDS: FINASTERIDE 5 MG TABLET PO SCH (09:50)
[2019-12-25] MEDS: ZINC SULFATE 220 MG CAPSULE PO SCH (09:50)
[2019-12-25] MEDS: CHOLECALCIFEROL (D3) 1,000 UNIT (25 MCG) TABLET PO SCH (09:52)
[2019-12-25] MEDS: NORMAL SALINE 1000 ML 1,000 ML IV PRN (09:56)
[2019-12-25 14:24] VITALS: BP 100/44
== END 2019-12-25 15:01 | disposition short-term general hospital (02) | DRG 194 ==
LOC: ER 14:23 → EH 17:25 → 3N 19:55 → 3W 12-23 14:41
PROVIDERS: ADMIT Internal Medicine; ATTEND Internal Medicine
DX: J18.9 Pneumonia, unspecified organism (principal); J44.0 Chronic obstructive pulmonary disease with (acute) lower respiratory infection; C34.2 Malignant neoplasm of middle lobe, bronchus or lung; E11.42 Type 2 diabetes mellitus with diabetic polyneuropathy; I25.10 Atherosclerotic heart disease of native coronary artery without angina pectoris; E78.5 Hyperlipidemia, unspecified; I10 Essential (primary) hypertension; E11.51 Type 2 diabetes mellitus with diabetic peripheral angiopathy without gangrene; F32.9 Major depressive disorder, single episode, unspecified; Z20.828 Contact with and (suspected) exposure to other viral communicable diseases; Z79.899 Other long term (current) drug therapy; Z79.02 Long term (current) use of antithrombotics/antiplatelets; Z79.4 Long term (current) use of insulin; Z92.3 Personal history of irradiation; Z92.21 Personal history of antineoplastic chemotherapy; I25.2 Old myocardial infarction; Z95.5 Presence of coronary angioplasty implant and graft; Z87.891 Personal history of nicotine dependence; Z88.6 Allergy status to analgesic agent
CPT/HCPCS: 36415; 70450; 71045; 71275; 80053; 81001; 82550; 82728; 82803; 82962; 83605; 83615; 84484; 85025; 85379; 85384; 85610; 85730; 86140; 87040; 87070; 87635; 87804; 87880; 93005; 93010; 96365; 99285; C9803; J0696; J1100; J1650; J1815; J3490; J7030

== ENCOUNTER 2020-02-04 00:53 | Inpatient (IN) | payer MEDICARE, OTHER ==
[2020-02-04 02:07] LABS: VENOUS BLOOD BASE EXCESS 2.8 mmol/L; VENOUS BLOOD HCO3 28.5 mmol/L (20-32); VENOUS BLOOD PCO2 46.6 mmHg (35-63); VENOUS BLOOD PH 7.4 (7.30-7.42)
[2020-02-04 02:09] LABS: ABSOLUTE BASOPHILS # (AUTO) 0.1 10^3/uL (0.0-0.2); ABSOLUTE LYMPHOCYTES (AUTO) 1.2 10^3/uL (0.5-4.7); ABSOLUTE MONOCYTES (AUTO) 1.9 10^3/uL (0.1-1.4); ABSOLUTE NEUT (AUTO) 10.4 10^3/uL (1.7-8.2); BASOPHILS % (AUTO) 0.4 % (0-2); EOSINOPHILS % (AUTO) 0.3 % (0-6); HEMOGLOBIN 8.8 g/dL (13.5-17.0); LYMPHOCYTES % (AUTO) 8.9 % (13-45); MEAN CORPUSCULAR HEMOGLOBIN 30.1 pg (27.0-33.4); MEAN CORPUSCULAR HGB CONC 33.8 g/dL (32.0-36.0); MEAN CORPUSCULAR VOLUME 89 fl (80-97); MONOCYTES % (AUTO) 14.2 % (3-13); PLATELET COUNT 447 10^3/uL (150-450); RED BLOOD COUNT 2.92 10^6/uL (4.35-5.55); RED CELL DISTRIBUTION WIDTH 14.9 % (11.5-14.0); SEGMENTED NEUTROPHILS % (AUTO) 76.2 % (42-78); TOTAL CELLS COUNTED % (AUTO) 100 %; WHITE BLOOD COUNT 13.7 10^3/uL (4.0-10.5)
[2020-02-04 02:14] LABS: INTERNATIONAL RATION (INR) 1.22; PROTHROMBIN TIME 15.6 SEC (11.4-15.4)
[2020-02-04 02:34] LABS: ALBUMIN 2.7 g/dL (3.5-5.0); ALKALINE PHOSPHATASE 134 U/L (38-126); ANION GAP 5 (5-19); ASPARTATE AMINO TRANSFERASE 27 U/L (17-59); BILIRUBIN,DIRECT 0.2 mg/dL (0.0-0.4); BILIRUBIN,TOTAL 0.4 mg/dL (0.2-1.3); BLOOD UREA NITROGEN 31 mg/dL (7-20); CALCIUM 10.9 mg/dL (8.4-10.2); CARBON DIOXIDE 33 mmol/L (22-30); CHLORIDE 99 mmol/L (98-107); GLUCOSE 221 mg/dL (75-110); POTASSIUM 4.7 mmol/L (3.6-5.0); TOTAL PROTEIN 5.8 g/dL (6.3-8.2)
[2020-02-04 02:35] LABS: ALCOHOL < 10 mg/dL (NONE DETECTED)
--- NOTE | 2020-02-04 02:41 | ER Document Report ---
ED General - General Chief Complaint: Altered Mental Status Stated Complaint: ALTERED MENTAL STATUS Time Seen by Provider: 02/04/20 01:59 Notes: Patient is an 84-year-old male [facility] who presents to the emergency department with altered mental status. Patient is unable to provide any meaningful history, but the patient was not acting his normal self, as per the nursing staff at the care home. Patient was brought in via EMS. TRAVEL OUTSIDE OF THE [place] IN LAST 30 DAYS: No - Related Data Allergies/Adverse Reactions: aspirin [Aspirin] Allergy (Unknown, Verified 09/24/19 07:45) Past Medical History - Social History Smoking Status: Unknown if Ever Smoked Family History: Reviewed & Not Pertinent - Past Medical History Cardiac Medical History: Reports: Hx Coronary Artery Disease, Hx Heart Attack, Hx Hypercholesterolemia, Hx Hypertension, Hx Peripheral Vascular Disease Pulmonary Medical History: Denies: Hx Tuberculosis Endocrine Medical History: Reports: Hx Diabetes Mellitus Type 2 Renal/ Medical History: Denies: Hx Peritoneal Dialysis Malignancy Medical History: Reports Hx Lung Cancer Psychiatric Medical History: Reports: Hx Depression Past Surgical History: Reports: Hx Coronary Stent Review of Systems - Review of Systems -: Yes ROS unobtainable due to patient's medical condition Physical Exam - Vital signs Vitals: Temp Pulse Resp BP Pulse Ox 98.4 F 100 16 100/58 L 99 02/04/20 00:54 02/04/20 00:54 02/04/20 00:54 02/04/20 00:54 02/04/20 00:54 - Notes Notes: PHYSICAL EXAMINATION: GENERAL: Appears chronically ill, no acute distress. HEAD: Normocephalic, atraumatic. EYES: PERRL, conjunctiva normal, all extraocular movements intact, sclera nonicteric ENT: Dry mucous membranes. NECK: Supple, no noticeable swelling, redness, rash. Normal range of motion. LUNGS: Diminished lung sounds in the bases. CARDIOVASCULAR: S1-S2, regular rate, regular rhythm. Radial pulses 2+, normal. ABDOMEN: Normoactive bowel sounds. Soft, nontender, no guarding, no rebound tenderness, and no masses palpated. EXTREMITIES: Normal strength and range of motion, no pitting or edema. No cyanosis. NEUROLOGICAL: Non verbal, but able to follow commands. PSYCH: Non verbal. SKIN: Warm, dry. No rash, lesions, ulcerations noted. Normal skin turgor. Course - Re-evaluation Re-evalutation: 02/04/20 06:22 CT of the head shows atrophy and chronic small vessel ischemia changes. No unilateral weakness noted on physical exam. Hematology is unremarkable. Coagulation studies are unremarkable also. Chemistries are normal. Troponin was negative. BNP is 608. Hematology shows a leukocytosis of 13,700. Blood gases normal. Coagulation studies showed are unremarkable. Patient is hyper glycemic with a glucose of 221. Troponin is negative. Patient did have a lactic acidosis, which improved from 2.5-2.1. Urinalysis is unremarkable. Toxicology ordered in triage is negative. Chest x-ray shows worsening pneumonia. Rocephin has already been given. Paged Dr. Hines for admission. 02/04/20 07:[address] Hines. Patient will be admitted to the telemetry unit. - Vital Signs Vital signs: Temp Pulse Resp BP Pulse Ox 97.9 F 107 H 17 104/60 98 02/05/20 16:00 02/05/20 16:00 02/05/20 16:00 02/05/20 16:00 02/05/20 16:00 - Laboratory Results Result Diagrams: 02/05/20 08:47 02/05/20 08:47 Laboratory Results Interpreted: 02/04/20 02/04/20 02/04/20 01:35 01:35 01:35 WBC 13.7 H RBC 2.92 L Hgb 8.8 L Hct 26.0 L RDW 14.9 H Lymph % (Auto) 8.9 L [place] % (Auto) 14.2 H Absolute Neuts (auto) 10.4 H Absolute Monos (auto) 1.9 H PT 15.6 H Carbon Dioxide 33 H BUN 31 H Glucose 221 H Lactic Acid Calcium 10.9 H Alkaline Phosphatase 134 H Total Protein 5.8 L Albumin 2.7 L Urine Ascorbic Acid 02/04/20 02/04/20 01:35 03:00 WBC RBC Hgb Hct RDW Lymph % (Auto) [place] % (Auto) Absolute Neuts (auto) Absolute Monos (auto) PT Carbon Dioxide BUN Glucose Lactic Acid 2.5 H Calcium Alkaline Phosphatase Total Protein Albumin Urine Ascorbic Acid 40 H Critical Laboratory Results Reviewed: No Critical Results - Radiology Results Critical Radiology Results Reviewed: No Critical Results - EKG Interpretation by Me Additional EKG results interpreted by me: 02/04/20 05:01 Sinus rhythm. Rate 95. HI 160; QRS 70; QT 376; QTc 473. No ST elevations or depressions noted. No acute change from previous EKG done on 12/21/2019. Discharge - Discharge Clinical Impression: Pneumonia Qualifiers: Pneumonia type: due to unspecified organism Laterality: bilateral Lung location: lower lobe of lung Qualified Code(s): J18.9 - Pneumonia, unspecified organism Condition: Fair Disposition: ADMITTED INPATIENT Admitting Provider: [facility] Unit Admitted: Telemetry
[2020-02-04 03:32] LABS: APPEARANCE,URINE CLEAR; BILIRUBIN,URINE NEGATIVE (NEGATIVE); COLOR,URINE YELLOW; GLUCOSE, URINE NEGATIVE (NEGATIVE); KETONES,URINE NEGATIVE (NEGATIVE); LEUKOCYTE ESTERASE,URINE NEGATIVE (NEGATIVE); NITRITE,URINE NEGATIVE (NEGATIVE); PROTEIN,URINE NEGATIVE (NEGATIVE); URINE SPECIFIC GRAVITY 1.021; UROBILINOGEN,URINE NEGATIVE mg/dL (<2.0)
[2020-02-04 03:49] LABS: URINE AMPHETAMINES SCREEN NEGATIVE; URINE BARBITURATES SCREEN NEGATIVE; URINE BENZODIAZEPINES SCREEN NEGATIVE; URINE COCAINE SCREEN NEGATIVE; URINE MARIJUANA (THC) SCREEN NEGATIVE; URINE METHADONE SCREEN NEGATIVE; URINE PHENCYCLIDINE SCREEN NEGATIVE
--- NOTE | 2020-02-04 05:54 | RADIOLOGY REPORT (SQ) ---
CHEST X-RAY 1 VIEW on 02/04/2020 at 4:29 AM CLINICAL INDICATION: Altered mental status COMPARISON: Chest x-ray from 12/21/[address] from 12/22/2019 FINDINGS: Left IJ Port-A-Cath tip is in the SVC. Heart is within normal limits for size. There is right lower lung opacity likely representing pneumonia. Trace right pleural effusion may be present. Based upon the patient's prior CT with evidence of central right lower lung mass the right lower lobe opacity may represent a worsening postobstructive pneumonia. Left lung is clear. IMPRESSION: Worsening right basilar opacity likely worsening pneumonia, this may be postobstructive pneumonia in this patient with prior CT showing right lower lobe mass. Please correlate with patient's prior history and any prior tissue diagnosis.
--- NOTE | 2020-02-04 06:08 | RADIOLOGY REPORT (SQ) ---
CT head without contrast on 02/04/2020 at 4:22 AM CLINICAL INDICATION: Altered mental status TECHNIQUE: Multiple axial images are obtained throughout the head without the administration of contrast. This exam was performed according to our departmental dose-optimization program, which includes automated exposure control, adjustment of the mA and/or kV according to patient size and/or use of iterative reconstruction technique. Total DLP is 1715.09 mGy*cm. COMPARISON: 12/21/2019 FINDINGS: There is generalized cerebral atrophy. There is low density in the periventricular white matter consistent with chronic small vessel ischemic changes. There is no hydrocephalus. There is no hemorrhage. There are no abnormal extra-axial fluid collections. There is no mass, mass effect or midline shift. There is no CT evidence of acute infarct. No bony abnormality is noted. IMPRESSION: Atrophy and chronic small vessel ischemic changes with no acute intracranial abnormality.
[2020-02-04] MEDS ORDERED: CEFTRIAXONE INJ 1000 MG VIAL IV ONE (06:19)
[2020-02-04] MEDS ORDERED: IPRATROPIUM/ALBUTEROL 0.5-2.5 MG/3 ML AMPUL NEB PRN (08:37)
[2020-02-04 10:29] LABS: ARTERIAL BLOOD BASE EXCESS 5.4 mmol/L; ARTERIAL BLOOD FIO2 ROOM AIR; ARTERIAL BLOOD H2CO3 1.03 mmol/L (1.05-1.35); ARTERIAL BLOOD O2 SATURATION 98.4 % (94-98); ARTERIAL BLOOD PCO2 34.1 mmHg (35-45); ARTERIAL BLOOD PH 7.53 (7.35-7.45); ARTERIAL BLOOD PO2 105.5 mmHg (80-100)
[2020-02-04 10:33] LABS: INTERNATIONAL RATION (INR) 1.17; PROTHROMBIN TIME 15.1 SEC (11.4-15.4)
--- NOTE | 2020-02-04 10:33 | RADIOLOGY REPORT (SQ) ---
EXAM DESCRIPTION: CT CHEST WITH IMAGES COMPLETED DATE/TIME: 02/04/2020 9:54 am REASON FOR STUDY: pneumonia COMPARISON: 12/22/2019 TECHNIQUE: CT scan of the chest performed using helical scanning technique with dynamic intravenous contrast injection. Images reviewed with lung, soft tissue and bone windows. Reconstructed coronal and sagittal MPR and MIP images reviewed. All images stored on PACS. All CT scanners at this facility use dose modulation, iterative reconstruction, and/or weight based d osing when appropriate to reduce radiation dose to as low as reasonably achievable (ALARA). [facility]: Dose Right [facility]: CareDose [facility]: Dose Right [facility]: Teradose 4D [facility]: Formula XO CONTRAST TYPE AND DOSE: contrast/concentration: Isovue 350.00 mmol/ml; Total Contrast Delivered: 65. 0 ml; Total Saline Delivered: 50.0 ml RENAL FUNCTION: GFR > 60. RADIATION DOSE: CT Rad equipment meets quality standard of care and radiation dose reduction techniq ues were employed. CTDIvol: 8.7 mGy. DLP: 353 mGy-cm. . LIMITATIONS: Motion. FINDINGS: LUNGS AND PLEURA: Right hilar and right posterior right lower lobe masses are unchanged. There are several new small foci of ground-glass attenuation in both upper lobes, largest about 8 mm in the left upper lobe on image 27. Patent central airways. No significant effusion. HILAR AND MEDIASTINAL STRUCTURES: See above. HEART AND VASCULAR STRUCTURES: No aneurysm or dissection. No central pulmonary emboli. No pericardi al effusion. HARDWARE: None in the chest. UPPER ABDOMEN: No significant findings. Limited exam. THYROID AND OTHER SOFT TISSUES: No masses. No adenopathy. BONES: Stable compression fracture T9. OTHER: No other significant finding. IMPRESSION: Known right lower lobe and right hilar masses. Patchy bilateral ground-glass opacities which could represent superimposed pneumonia or metastatic lesions. TECHNICAL DOCUMENTATION: JOB ID: [id number] Quality ID # [id number]: Final reports with documentation of one or more dose reduction techniques (e.g., Au tomated exposure control, adjustment of the mA and/or kV according to patient size, use of iterative reconstruction technique) 2010 [employer]- All Rights Reserved Reading location - IP/workstation name: [email or web address]
[2020-02-04 10:46] LABS: PARTIAL THROMBOPLASTIN TIME 37.5 SEC (23.5-35.8)
[2020-02-04 10:54] LABS: PHOSPHORUS 3.1 mg/dL (2.5-4.5)
[2020-02-04 11:09] LABS: FREE T4 (FREE THYROXINE) 1.18 ng/dL (0.78-2.19)
[2020-02-04 11:23] LABS: THYROID STIMULATING HORMONE 2.56 uIU/mL (0.47-4.68)
[2020-02-04] MEDS: LEVOFLOXACIN 750 MG/D5W RTU 750 MG/150 ML RTUPB IV SCH (11:30)
[2020-02-04 11:42] LABS: CREATINE KINASE MB 0.51 ng/mL (<4.55)
[2020-02-04 11:47] LABS: TROPONIN I < 0.012 ng/mL
[2020-02-04 13:37] LABS: URINE AMPHETAMINES SCREEN NEGATIVE; URINE BARBITURATES SCREEN NEGATIVE; URINE BENZODIAZEPINES SCREEN NEGATIVE; URINE COCAINE SCREEN NEGATIVE; URINE MARIJUANA (THC) SCREEN NEGATIVE; URINE METHADONE SCREEN NEGATIVE; URINE PHENCYCLIDINE SCREEN NEGATIVE
[2020-02-04] MEDS: HEPARIN SOD (PORCINE) 5,000 UNIT/ML 1 ML VIAL SUBCUT SCH ×2 (14:59→21:47)
[2020-02-04 17:52] LABS: CREATINE KINASE MB 0.81 ng/mL (<4.55)
[2020-02-04 17:53] LABS: TROPONIN I < 0.012 ng/mL
[2020-02-04] MEDS: RINGERS SOLUTION,LACTATED 1,000 ML IV PRN (18:54)
[2020-02-04] MEDS ORDERED: (PENDING PHARMACY ID) (Oxycodone Hcl/Acetaminophen [Percocet 10-325 Mg Tablet] 1 EACH Tabl PO PRN (21:09)
--- NOTE | 2020-02-04 21:09 | PDOC H&P ---
History of Present Illness Admission Date/PCP: 02/04/20 07:23 MARLEN DENTON MD History of Present Illness: CORA GARCIA SR is a 84 year old male, He was transferred from the senior living to the emergency room for evaluation of altered mental status, patient is essentially not responding to verbal commands. He was admitted in this hospital on December 21, 2019 for evaluation of adult failure to thrive, fatigue, not acting right, at that time initially chest x-ray that was done suggested pneumonia subsequent CT angiogram of the chest that was done demonstrated worsening lung cancer in the right lower lobe,Patient with poor function, he was referred to the senior living for physical therapy and rehabilitation but if anything his condition has worsened. In the emergency room he had CT of the head demonstrated generalized cerebral atrophy, there is low density in the periventricular white matter consistent with chronic small vessel ischemic changes there is no hydrocephalus, there is no hemorrhage there is no mass or mass-effect or midline shift.When I saw patient on the floor he was virtually stuporous, CT chest with contrast was obtained demonstrated right hilar and right posterior right lower lobe masses unchanged, there are several new small foci of groundglass attenuation in both upper lobes largest about 8 mm in the left upper lobe there is no effusion ,could not completely rule out pneumonia.. Patient with poor function with worsening clinical condition in his present condition is not a candidate for chemotherapy or radiation therapy, we need to discuss plan of care with family going forward ,hospice could be an option at this time Past Medical History Cardiac Medical History: Reports: Coronary Artery Disease, Myocardial Infarction, Hyperlipidema, Hypertension, Peripheral Vascular Disease Endocrine Medical History: Reports: Diabetes Mellitus Type 2 Malignancy Medical History: Reports: Lung Cancer Psychiatric Medical History: Reports: Depression Past Surgical History Past Surgical History: Reports: Coronary Stent Social History Smoking Status: Former Smoker Frequency of Alcohol Use: None Hx Recreational Drug Use: No Drugs: None Hx Prescription Drug Abuse: No Family History Family History: Reviewed & Not Pertinent Parental Family History Reviewed: Yes Children Family History Reviewed: Yes Sibling(s) Family History Reviewed.: Yes Medication/Allergy Home Medications: Citalopram Hydrobromide [Celexa 40 mg Tablet] 40 mg PO DAILY 07/16/12 Clopidogrel Bisulfate [Plavix 75 mg Tablet] 75 mg PO DAILY 07/16/12 Tamsulosin HCl [Flomax] 0.4 mg PO DAILY 08/03/13 Finasteride [Proscar 5 mg Tablet] 5 mg PO DAILY 07/10/19 Ascorbic Acid [Vitamin C 500 mg Tablet] 500 mg PO BID tablet 12/24/19 Cholecalciferol (Vitamin D3) [Vitamin D3 1000 Unit Tablet] 2,000 unit PO DAILY tablet 12/24/19 Insulin Lispro [Humalog Insulin (Lispro) 100 unit/mL] 0 - 12 unit SUBCUT ACHS unit 12/24/19 Zinc Sulfate [Zinc-220 Capsule] 220 mg PO DAILY capsule 12/24/19 Insulin Glargine,Hum.rec.anlog [Lantus Insulin 100 Unit/1 ml 10 ml] 20 unit SUBCUT QHS 02/04/20 Oxycodone HCl/Acetaminophen [Percocet 10-325 Mg Tablet] 1 each PO Q4HP PRN 02/04/20 Allergies/Adverse Reactions: aspirin [Aspirin] Allergy (Unknown, Verified 09/24/19 07:45) Review of Systems ROS unobtainable: Due to mental status Physical Exam Vital Signs: Temp Pulse Resp BP Pulse Ox 97.4 F 99 18 84/60 L 96 02/04/20 20:26 02/04/20 20:26 02/04/20 20:26 02/04/20 20:26 02/04/20 20:26 Intake & Output 02/03/20 02/04/20 02/05/20 06:59 06:59 06:59 Intake Total 100 150 Balance 100 150 Weight 60.1 kg 60.4 kg General appearance: PRESENT: other - Patient is stuporous but arousable very confused Eye exam: PRESENT: PERRLA Respiratory exam: PRESENT: rhonchi Cardiovascular exam: PRESENT: +S1, +S2 GI/Abdominal exam: PRESENT: soft Neurological exam: PRESENT: altered Results Laboratory Results: 02/04/20 01:35 02/04/20 01:35 02/04/20 02/04/20 02/04/20 01:35 01:35 01:35 WBC 13.7 H RBC 2.92 L Hgb 8.8 L Hct 26.0 L MCV 89 MCH 30.1 MCHC 33.8 RDW 14.9 H Plt Count 447 Seg Neutrophils % 76.2 Carbonic Acid HCO3/H2CO3 Ratio ABG pH ABG pCO2 ABG pO2 ABG HCO3 ABG O2 Saturation ABG Base Excess VBG pH 7.40 VBG pCO2 46.6 VBG HCO3 28.5 VBG Base Excess 2.8 FiO2 Sodium 137.3 Potassium 4.7 Chloride 99 Carbon Dioxide 33 H Anion Gap 5 BUN 31 H Creatinine 0.76 Est GFR ( Amer) > 60 Glucose 221 H Lactic Acid Calcium 10.9 H Phosphorus Magnesium 2.3 Total Bilirubin 0.4 AST 27 Alkaline Phosphatase 134 H Ammonia Total Protein 5.8 L Albumin 2.7 L TSH Free T4 Urine Color Urine Appearance Urine pH Ur Specific [place] Urine Protein Urine Glucose (UA) Urine Ketones Urine Blood Urine Nitrite Ur Leukocyte Esterase Urine WBC (Auto) Urine RBC (Auto) 02/04/20 02/04/20 02/04/20 01:35 03:00 03:57 WBC RBC Hgb Hct MCV MCH MCHC RDW Plt Count Seg Neutrophils % Carbonic Acid HCO3/H2CO3 Ratio ABG pH ABG pCO2 ABG pO2 ABG HCO3 ABG O2 Saturation ABG Base Excess VBG pH VBG pCO2 VBG HCO3 VBG Base Excess FiO2 Sodium Potassium Chloride Carbon Dioxide Anion Gap BUN Creatinine Est GFR ( Amer) Glucose Lactic Acid 2.5 H 2.1 Calcium Phosphorus Magnesium Total Bilirubin AST Alkaline Phosphatase Ammonia Total Protein Albumin TSH Free T4 Urine Color YELLOW Urine Appearance CLEAR Urine pH 5.0 Ur Specific [place] 1.021 Urine Protein NEGATIVE Urine Glucose (UA) NEGATIVE Urine Ketones NEGATIVE Urine Blood NEGATIVE Urine Nitrite NEGATIVE Ur Leukocyte Esterase NEGATIVE Urine WBC (Auto) 3 Urine RBC (Auto) 2 02/04/20 02/04/20 02/04/20 07:34 09:38 10:10 WBC RBC Hgb Hct MCV MCH MCHC RDW Plt Count Seg Neutrophils % Carbonic Acid 1.03 L HCO3/H2CO3 Ratio 27:1 ABG pH 7.53 H ABG pCO2 34.1 L ABG pO2 105.5 H ABG HCO3 28.0 H ABG O2 Saturation 98.4 H ABG Base Excess 5.4 VBG pH VBG pCO2 VBG HCO3 VBG Base Excess FiO2 ROOM AIR Sodium Potassium Chloride Carbon Dioxide Anion Gap BUN Creatinine Est GFR ( Amer) Glucose Lactic Acid 2.1 Calcium Phosphorus 3.1 Magnesium 2.2 Total Bilirubin AST Alkaline Phosphatase Ammonia Total Protein Albumin TSH Free T4 Urine Color Urine Appearance Urine pH Ur Specific [place] Urine Protein Urine Glucose (UA) Urine Ketones Urine Blood Urine Nitrite Ur Leukocyte Esterase Urine WBC (Auto) Urine RBC (Auto) 02/04/20 02/04/20 10:10 10:10 WBC RBC Hgb Hct MCV MCH MCHC RDW Plt Count Seg Neutrophils % Carbonic Acid HCO3/H2CO3 Ratio ABG pH ABG pCO2 ABG pO2 ABG HCO3 ABG O2 Saturation ABG Base Excess VBG pH VBG pCO2 VBG HCO3 VBG Base Excess FiO2 Sodium Potassium Chloride Carbon Dioxide Anion Gap BUN Creatinine Est GFR ( Amer) Glucose Lactic Acid Calcium Phosphorus Magnesium Total Bilirubin AST Alkaline Phosphatase Ammonia < 8.7 L Total Protein Albumin TSH 2.56 Free T4 1.18 Urine Color Urine Appearance Urine pH Ur Specific [place] Urine Protein Urine Glucose (UA) Urine Ketones Urine Blood Urine Nitrite Ur Leukocyte Esterase Urine WBC (Auto) Urine RBC (Auto) 02/04/20 02/04/20 02/04/20 01:35 10:10 10:10 Creatine Kinase < 20 L CK-MB (CK-2) 0.51 Troponin I < 0.012 < 0.012 02/04/20 02/04/20 16:22 16:22 Creatine Kinase < 20 L CK-MB (CK-2) 0.81 Troponin I < 0.012 Impressions: Chest CT 02/04/20 00:00 IMPRESSION: Known right lower lobe and right hilar masses. Patchy bilateral ground-glass opacities which could represent superimposed pneumonia or metastat ic lesions. Head CT 02/04/20 02:17 IMPRESSION: Atrophy and chronic small vessel ischemic changes with no acute intracranial abnormality. Chest X-Ray 02/04/20 02:18 IMPRESSION: Worsening right basilar opacity likely worsening pneumonia, this may be postobstructive pneumonia in this patient with prior CT showing right lower lobe mass. Please correlate with patient's prior history and any prior tissue diagnosis. Assessment & Plan - Diagnosis (1) Pneumonia Qualifiers: Pneumonia type: due to unspecified organism Laterality: bilateral Lung location: lower lobe of lung Qualified Code(s): J18.9 - Pneumonia, unspecified organism Is this a current diagnosis for this admission?: Yes Plan: Pneumonia could not be completely rule out on the CT chest, start IV antibiotic empirically (2) Metabolic encephalopathy Is this a current diagnosis for this admission?: Yes Plan: The apparent cause is not clear, there are many potential etiology (3) Malignant neoplasm of unspecified part of right bronchus or lung Is this a current diagnosis for this admission?: Yes Plan: Patient with very poor function, not particularly a good candidate for chemotherapy radiation therapy or surgery, may need to consider hospice as an option of care (4) Type 2 diabetes mellitus with diabetic polyneuropathy Qualifiers: Diabetes mellitus equipment operator intermodal yard insulin use: with fpc use Qualified Code(s): E11.42 - Type 2 diabetes mellitus with diabetic polyneuropathy; Z79.4 - computer terminal operator (current) use of insulin Is this a current diagnosis for this admission?: Yes - Time Time Spent: Greater than 70 Minutes Medications reviewed and adjusted accordingly: Yes Anticipated Discharge Disposition: Home, Self Care Anticipated Discharge Timeframe: within 72 hours - Inpatient Certification Based on my medical assessment, after consideration of the patient's comorb idities, presenting symptoms, or acuity I expect that the services needed warrant INPATIENT care.: Yes I certify that my determination is in accordance with my understanding of Medicare's requirements for reasonable and necessary INPATIENT services [42 CFR 412.3e].: Yes
--- NOTE | 2020-02-04 21:24 | EKG REPORT ---
SEVERITY:- BORDERLINE ECG - SINUS RHYTHM LOW VOLTAGE IN FRONTAL LEADS CONSIDER INFERIOR INFARCT : Confirmed by: Zuleika Gustafson MD 04-Feb-2020 21:23:57
[2020-02-04] MEDS ORDERED: NORMAL SALINE 1000 ML 1,000 ML IV ONE (21:30)
[2020-02-04] MEDS: TAMSULOSIN HCL 0.4 MG CAP.SR.24H PO SCH (21:43)
[2020-02-04] MEDS: FINASTERIDE 5 MG TABLET PO SCH (21:47)
[2020-02-04 23:00] LABS: CREATINE KINASE MB 0.89 ng/mL (<4.55)
[2020-02-04 23:05] LABS: TROPONIN I < 0.012 ng/mL
[2020-02-05] MEDS: HEPARIN SOD (PORCINE) 5,000 UNIT/ML 1 ML VIAL SUBCUT SCH ×3 (05:47→21:28)
[2020-02-05] MEDS: RINGERS SOLUTION,LACTATED 1,000 ML IV PRN ×3 (06:29→18:28)
[2020-02-05] MEDS: CEFTRIAXONE 1 GM/D5W RTU 1 GM/50 ML RTUPB IV SCH (07:48)
--- NOTE | 2020-02-05 08:55 | PDOC CONSULTATION ---
Consultation Consult Date: 02/05/20 Attending physician:: MARLEN DENTON Provider Consulted: PASCUAL GUTIERREZ Consult reason:: Patient well-known to our oncology clinic with history of stage III lung cancers History of Present Illness Admission Date/PCP: 02/04/20 07:23 MARLEN DENTON MD Patient complains of: Weakness, confusion History of Present Illness: CORA GARCIA SR is a 84 year old male with known history of stage III lung cancer who completed a course of concurrent chemoradiation, after that he had severe weakness and nausea vomiting dehydration and ultimately was sent to rehab and has been in [facility] ever since, there has been declining, mental status seems to be worsening, having some issues with dysphagia, I had a discussion with his [id number] who is his medical POA, and recommended that we start thinking about comfort care. She understood that. We left it at that and was going to do another telemed visit within a few months. No further treatment was planned because of his comorbidities and performance status. Past Medical History Cardiac Medical History: Reports: Coronary Artery Disease, Myocardial Infarction, Hyperlipidema, Hypertension, Peripheral Vascular Disease Pulmonary Medical History: Denies: Tuberculosis Endocrine Medical History: Reports: Diabetes Mellitus Type 2 Malignancy Medical History: Reports: Lung Cancer Psychiatric Medical History: Reports: Depression Past Surgical History Past Surgical History: Reports: Coronary Stent Social History Smoking Status: Former Smoker Frequency of Alcohol Use: None Hx Recreational Drug Use: No Drugs: None Hx Prescription Drug Abuse: No Family History Family History: Reviewed & Not Pertinent Parental Family History Reviewed: Yes Children Family History Reviewed: Yes Sibling(s) Family History Reviewed.: Yes Medication/Allergy Home Medications: Citalopram Hydrobromide [Celexa 40 mg Tablet] 40 mg PO DAILY 07/16/12 Clopidogrel Bisulfate [Plavix 75 mg Tablet] 75 mg PO DAILY 07/16/12 Tamsulosin HCl [Flomax] 0.4 mg PO DAILY 08/03/13 Finasteride [Proscar 5 mg Tablet] 5 mg PO DAILY 07/10/19 Ascorbic Acid [Vitamin C 500 mg Tablet] 500 mg PO BID tablet 12/24/19 Cholecalciferol (Vitamin D3) [Vitamin D3 1000 Unit Tablet] 2,000 unit PO DAILY tablet 12/24/19 Insulin Lispro [Humalog Insulin (Lispro) 100 unit/mL] 0 - 12 unit SUBCUT ACHS unit 12/24/19 Zinc Sulfate [Zinc-220 Capsule] 220 mg PO DAILY capsule 12/24/19 Insulin Glargine,Hum.rec.anlog [Lantus Insulin 100 Unit/1 ml 10 ml] 20 unit SUBCUT QHS 02/04/20 Oxycodone HCl/Acetaminophen [Percocet 10-325 Mg Tablet] 1 each PO Q4HP PRN 02/04/20 Allergies/Adverse Reactions: aspirin [Aspirin] Allergy (Unknown, Verified 09/24/19 07:45) Review of Systems Constitutional: ABSENT: chills, fever(s), headache(s), weight gain, weight loss Eyes: ABSENT: visual disturbances Ears: ABSENT: hearing changes Cardiovascular: ABSENT: chest pain, dyspnea on exertion, edema, orthropnea, palpitations Respiratory: ABSENT: cough, hemoptysis Gastrointestinal: ABSENT: abdominal pain, constipation, diarrhea, hematemesis, hematochezia, nausea, vomiting Genitourinary: ABSENT: dysuria, hematuria Musculoskeletal: ABSENT: joint swelling Integumentary: ABSENT: rash, wounds Neurological: ABSENT: abnormal gait, abnormal speech, confusion, dizziness, focal weakness, syncope Psychiatric: ABSENT: anxiety, depression, homidical ideation, suicidal ideation Endocrine: ABSENT: cold intolerance, heat intolerance, polydipsia, polyuria Hematologic/Lymphatic: ABSENT: easy bleeding, easy bruising Physical Exam Vital Signs: Temp Pulse Resp BP Pulse Ox 97.8 F 92 16 100/62 100 02/05/20 07:24 02/05/20 07:24 02/05/20 07:24 02/05/20 07:24 02/05/20 07:24 Intake & Output 02/04/20 02/05/20 02/06/20 06:59 06:59 06:59 Intake Total 100 1250 Balance 100 1250 Weight 60.1 kg 60.7 kg General appearance: PRESENT: no acute distress, well-developed, well-nourished Head exam: PRESENT: atraumatic, normocephalic Eye exam: PRESENT: conjunctiva pink, EOMI, PERRLA. ABSENT: scleral icterus Ear exam: PRESENT: normal external ear exam Mouth exam: PRESENT: moist, tongue midline Neck exam: ABSENT: carotid bruit, JVD, lymphadenopathy, thyromegaly Respiratory exam: PRESENT: clear to auscultation keegan. ABSENT: rales, rhonchi, wheezes Cardiovascular exam: PRESENT: RRR. ABSENT: diastolic murmur, rubs, systolic murmur Pulses: PRESENT: normal dorsalis pedis pul Vascular exam: PRESENT: normal capillary refill GI/Abdominal exam: PRESENT: normal bowel sounds, soft. ABSENT: distended, guarding, mass, organolmegaly, rebound, tenderness Rectal exam: PRESENT: deferred Extremities exam: PRESENT: full ROM. ABSENT: calf tenderness, clubbing, pedal edema Neurological exam: PRESENT: alert, awake, oriented to person, oriented to place, oriented to time, oriented to situation, CN II-XII grossly intact. ABSENT: motor sensory deficit Psychiatric exam: PRESENT: appropriate affect, normal mood. ABSENT: homicidal ideation, suicidal ideation Skin exam: PRESENT: dry, intact, warm. ABSENT: cyanosis, rash Results Laboratory Results: 02/04/20 02/04/20 02/04/20 09:38 10:10 10:10 Carbonic Acid 1.03 L HCO3/H2CO3 Ratio 27:1 ABG pH 7.53 H ABG pCO2 34.1 L ABG pO2 105.5 H ABG HCO3 28.0 H ABG O2 Saturation 98.4 H ABG Base Excess 5.4 FiO2 ROOM AIR Phosphorus 3.1 Magnesium 2.2 Ammonia < 8.7 L TSH Free T4 02/04/20 10:10 Carbonic Acid HCO3/H2CO3 Ratio ABG pH ABG pCO2 ABG pO2 ABG HCO3 ABG O2 Saturation ABG Base Excess FiO2 Phosphorus Magnesium Ammonia TSH 2.56 Free T4 1.18 02/04/20 03:57 Blood Blood Culture (PCR) - Final Staphylococcus Species 02/04/20 02/04/20 02/04/20 01:35 10:10 10:10 Creatine Kinase < 20 L CK-MB (CK-2) 0.51 Troponin I < 0.012 < 0.012 02/04/20 02/04/20 02/04/20 16:22 16:22 22:11 Creatine Kinase < 20 L 30 L CK-MB (CK-2) 0.81 Troponin I < 0.012 02/04/20 22:11 Creatine Kinase CK-MB (CK-2) 0.89 Troponin I < 0.012 Impressions: Chest CT 02/04/20 00:00 IMPRESSION: Known right lower lobe and right hilar masses. Patchy bilateral ground-glass opacities which could represent superimposed pneumonia or metast atic lesions. Head CT 02/04/20 02:17 IMPRESSION: Atrophy and chronic small vessel ischemic changes with no acute intracranial abnormality. Chest X-Ray 02/04/20 02:18 IMPRESSION: Worsening right basilar opacity likely worsening pneumonia, this may be postobstructive pneumonia in this patient with prior CT showing right lower lobe mass. Please correlate with patient's prior history and any prior tissue diagnosis. Assessment & Plan - Diagnosis (1) Lung cancer Qualifiers: Laterality: right Lung location: middle lobe of lung Qualified Code(s): C34.2 - Malignant neoplasm of middle lobe, bronchus or lung Is this a current diagnosis for this admission?: Yes Plan: Agree that no further treatment is possible, will discuss further with nitin hter-in-law, he is hospice appropriate. - Time Time Spent: Greater than 70 Minutes
[2020-02-05 09:01] LABS: ABSOLUTE LYMPHOCYTES (AUTO) 0.7 10^3/uL (0.5-4.7); ABSOLUTE NEUT (AUTO) 7.5 10^3/uL (1.7-8.2); BASOPHILS % (AUTO) 0.3 % (0-2); EOSINOPHILS % (AUTO) 0.2 % (0-6); HEMATOCRIT 33.1 % (37.9-51.0); HEMOGLOBIN 10.8 g/dL (13.5-17.0); LYMPHOCYTES % (AUTO) 7.9 % (13-45); MEAN CORPUSCULAR HEMOGLOBIN 29.2 pg (27.0-33.4); MEAN CORPUSCULAR HGB CONC 32.7 g/dL (32.0-36.0); MEAN CORPUSCULAR VOLUME 89 fl (80-97); PLATELET COUNT 374 10^3/uL (150-450); RED CELL DISTRIBUTION WIDTH 15.5 % (11.5-14.0); SEGMENTED NEUTROPHILS % (AUTO) 80.6 % (42-78); TOTAL CELLS COUNTED % (AUTO) 100 %; WHITE BLOOD COUNT 9.3 10^3/uL (4.0-10.5)
[2020-02-05 09:29] LABS: ALBUMIN 2.4 g/dL (3.5-5.0); ANION GAP 7 (5-19); ASPARTATE AMINO TRANSFERASE 21 U/L (17-59); BILIRUBIN,DIRECT 0.2 mg/dL (0.0-0.4); BILIRUBIN,TOTAL 0.4 mg/dL (0.2-1.3); BLOOD UREA NITROGEN 19 mg/dL (7-20); CALCIUM 10.1 mg/dL (8.4-10.2); CARBON DIOXIDE 26 mmol/L (22-30); CHLORIDE 103 mmol/L (98-107); GLUCOSE 208 mg/dL (75-110); NEONATAL BILIRUBIN RESULT 0.2 mg/dL (0.1-1.1); TOTAL PROTEIN 5.3 g/dL (6.3-8.2)
[2020-02-05 09:32] LABS: ALKALINE PHOSPHATASE 97 U/L (38-126)
[2020-02-05] MEDS: TAMSULOSIN HCL 0.4 MG CAP.SR.24H PO SCH (09:38)
[2020-02-05] MEDS: FINASTERIDE 5 MG TABLET PO SCH (09:40)
[2020-02-05] MEDS: LEVOFLOXACIN 750 MG/D5W RTU 750 MG/150 ML RTUPB IV SCH (09:40)
[2020-02-05] MEDS: OXYCODONE-ACETAMINOPHEN 5-325 MG TABLET PO PRN (21:33)
[2020-02-05] MEDS: OXYCODONE HCL IR 5 MG TABLET PO PRN (21:35)
--- NOTE | 2020-02-05 23:02 | PDOC PROGRESS REPORT ---
Subjective Date:: 02/05/20 Subjective:: Patient seen by the bedside, very confused Reason For Visit: PNEUMONIA Physical Exam Vital Signs: Temp Pulse Resp BP Pulse Ox 98.1 F 100 18 91/45 L 91 L 02/05/20 22:00 02/05/20 21:29 02/05/20 21:29 02/05/20 21:29 02/05/20 21:29 Intake & Output 02/04/20 02/05/20 02/06/20 06:59 06:59 06:59 Intake Total 100 1250 1894 Balance 100 1250 1894 Weight 60.1 kg 60.7 kg General appearance: PRESENT: no acute distress Eye exam: PRESENT: PERRLA Respiratory exam: PRESENT: rhonchi Cardiovascular exam: PRESENT: +S1, +S2 GI/Abdominal exam: PRESENT: soft Neurological exam: PRESENT: alert Results Laboratory Results: 02/05/20 08:47 02/05/20 08:47 02/05/20 02/05/20 08:47 08:47 WBC 9.3 RBC 3.70 L Hgb 10.8 L Hct 33.1 L MCV 89 MCH 29.2 MCHC 32.7 RDW 15.5 H Plt Count 374 Seg Neutrophils % 80.6 H Sodium 135.5 L Potassium 4.0 Chloride 103 Carbon Dioxide 26 Anion Gap 7 BUN 19 Creatinine 0.68 Est GFR ( Amer) > 60 Glucose 208 H Calcium 10.1 Total Bilirubin 0.4 AST 21 Alkaline Phosphatase 97 Total Protein 5.3 L Albumin 2.4 L 02/04/20 13:00 Clean Catch Midstream Urine Culture - Final Mixed Urogenital Ana 02/04/20 03:57 Blood Blood Culture (PCR) - Final Staphylococcus Species 02/04/20 02/04/20 02/04/20 01:35 10:10 10:10 Creatine Kinase < 20 L CK-MB (CK-2) 0.51 Troponin I < 0.012 < 0.012 02/04/20 02/04/20 02/04/20 16:22 16:22 22:11 Creatine Kinase < 20 L 30 L CK-MB (CK-2) 0.81 Troponin I < 0.012 02/04/20 22:11 Creatine Kinase CK-MB (CK-2) 0.89 Troponin I < 0.012 Impressions: Chest CT 02/04/20 00:00 IMPRESSION: Known right lower lobe and right hilar masses. Patchy bilateral ground-glass opacities which could represent superimposed pneumonia or metastatic lesions. Head CT 02/04/20 02:17 IMPRESSION: Atrophy and chronic small vessel ischemic changes with no acute intracranial abnormality. Chest X-Ray 02/04/20 02:18 IMPRESSION: Worsening right basilar opacity likely worsening pneumonia, this may be postobstructive pneumonia in this patient with prior CT showing right lower lobe mass. Please correlate with patient's prior history and any prior tissue diagnosis. Assessment & Plan - Diagnosis (1) Pneumonia Qualifiers: Pneumonia type: due to unspecified organism Laterality: bilateral Lung location: lower lobe of lung Qualified Code(s): J18.9 - Pneumonia, unspecified organism Is this a current diagnosis for this admission?: Yes Plan: Continue antibiotic (2) Metabolic encephalopathy Is this a current diagnosis for this admission?: Yes (3) Malignant neoplasm of unspecified part of right bronchus or lung Is this a current diagnosis for this admission?: Yes (4) Type 2 diabetes mellitus with diabetic polyneuropathy Qualifiers: Diabetes mellitus prison insulin use: with prison use Qualified Code(s): E11.42 - Type 2 diabetes mellitus with diabetic polyneuropathy; 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
[2020-02-06] MEDS: RINGERS SOLUTION,LACTATED 1,000 ML IV PRN ×3 (00:54→22:43)
[2020-02-06 06:20] LABS: ABSOLUTE EOSINOPHILS # (AUTO) 0.1 10^3/uL (0.0-0.6); ABSOLUTE LYMPHOCYTES (AUTO) 0.9 10^3/uL (0.5-4.7); ABSOLUTE MONOCYTES (AUTO) 1.5 10^3/uL (0.1-1.4); ABSOLUTE NEUT (AUTO) 7.7 10^3/uL (1.7-8.2); BASOPHILS % (AUTO) 0.4 % (0-2); EOSINOPHILS % (AUTO) 0.6 % (0-6); HEMATOCRIT 32.6 % (37.9-51.0); HEMOGLOBIN 10.5 g/dL (13.5-17.0); LYMPHOCYTES % (AUTO) 8.4 % (13-45); MEAN CORPUSCULAR HEMOGLOBIN 28.9 pg (27.0-33.4); MEAN CORPUSCULAR HGB CONC 32.2 g/dL (32.0-36.0); MEAN CORPUSCULAR VOLUME 90 fl (80-97); PLATELET COUNT 352 10^3/uL (150-450); RED BLOOD COUNT 3.63 10^6/uL (4.35-5.55); RED CELL DISTRIBUTION WIDTH 15.4 % (11.5-14.0); SEGMENTED NEUTROPHILS % (AUTO) 75.6 % (42-78); TOTAL CELLS COUNTED % (AUTO) 100 %; WHITE BLOOD COUNT 10.2 10^3/uL (4.0-10.5)
[2020-02-06] MEDS: HEPARIN SOD (PORCINE) 5,000 UNIT/ML 1 ML VIAL SUBCUT SCH ×3 (06:51→22:43)
[2020-02-06] MEDS: FINASTERIDE 5 MG TABLET PO SCH (08:59)
[2020-02-06] MEDS: CEFTRIAXONE 1 GM/D5W RTU 1 GM/50 ML RTUPB IV SCH (09:00)
[2020-02-06] MEDS: LEVOFLOXACIN 750 MG/D5W RTU 750 MG/150 ML RTUPB IV SCH (09:57)
[2020-02-06] MEDS: TAMSULOSIN HCL 0.4 MG CAP.SR.24H PO SCH (09:57)
--- NOTE | 2020-02-06 11:30 | PDOC PROGRESS REPORT ---
Subjective Date:: 02/06/20 Subjective:: Patient confused overnight and removed port needle. Tried to call the numbers in the chart to contact family, but was unable to this morning. But nursing notes that they did speak with [id number] who is a dietitian at [facility] and seems to direct a lot of his medical care, and she is understanding and in agreement with consideration of hospice care. But, he cannot be cared for at home, so will need some sort of placement. Reason For Visit: PNEUMONIA Physical Exam Vital Signs: Temp Pulse Resp BP Pulse Ox 97.5 F 90 16 113/82 97 02/06/20 07:41 02/06/20 08:32 02/06/20 08:32 02/06/20 07:41 02/06/20 08:32 Intake & Output 02/05/20 02/06/20 02/07/20 06:59 06:59 06:59 Intake Total 1250 2537 Balance 1250 2537 Weight 60.7 kg 60.7 kg General appearance: PRESENT: no acute distress, well-developed, well-nourished Head exam: PRESENT: atraumatic, normocephalic Eye exam: PRESENT: conjunctiva pink, EOMI, PERRLA. ABSENT: scleral icterus Ear exam: PRESENT: normal external ear exam Mouth exam: PRESENT: moist, tongue midline Neck exam: ABSENT: carotid bruit, JVD, lymphadenopathy, thyromegaly Respiratory exam: PRESENT: clear to auscultation keegan. ABSENT: rales, rhonchi, wheezes Cardiovascular exam: PRESENT: RRR. ABSENT: diastolic murmur, rubs, systolic murmur Pulses: PRESENT: normal dorsalis pedis pul Vascular exam: PRESENT: normal capillary refill GI/Abdominal exam: PRESENT: normal bowel sounds, soft. ABSENT: distended, guarding, mass, organolmegaly, rebound, tenderness Rectal exam: PRESENT: deferred Extremities exam: PRESENT: full ROM. ABSENT: calf tenderness, clubbing, pedal edema Neurological exam: PRESENT: alert, awake, oriented to person, oriented to place, oriented to time, oriented to situation, CN II-XII grossly intact. ABSENT: motor sensory deficit Psychiatric exam: PRESENT: appropriate affect, normal mood. ABSENT: homicidal ideation, suicidal ideation Skin exam: PRESENT: dry, intact, warm. ABSENT: cyanosis, rash Results Laboratory Results: 12/19/20 04:44 02/05/20 08:47 02/06/20 04:44 WBC 10.2 RBC 3.63 L Hgb 10.5 L Hct 32.6 L MCV 90 MCH 28.9 MCHC 32.2 RDW 15.4 H Plt Count 352 Seg Neutrophils % 75.6 02/04/20 03:57 Blood Blood Culture (PCR) - Final Staphylococcus Species 02/04/20 13:00 Clean Catch Midstream Urine Culture - Final Mixed Urogenital Ana 02/04/20 02/04/20 02/04/20 01:35 10:10 10:10 Creatine Kinase < 20 L CK-MB (CK-2) 0.51 Troponin I < 0.012 < 0.012 02/04/20 02/04/20 02/04/20 16:22 16:22 22:11 Creatine Kinase < 20 L 30 L CK-MB (CK-2) 0.81 Troponin I < 0.012 02/04/20 22:11 Creatine Kinase CK-MB (CK-2) 0.89 Troponin I < 0.012 Impressions: Chest CT 02/04/20 00:00 IMPRESSION: Known right lower lobe and right hilar masses. Patchy bilateral ground-glass opacities which could represent superimposed pneumonia or metastatic lesions. Head CT 02/04/20 02:17 IMPRESSION: Atrophy and chronic small vessel ischemic changes with no acute intracranial abnormality. Chest X-Ray 02/04/20 02:18 IMPRESSION: Worsening right basilar opacity likely worsening pneumonia, this may be postobstructive pneumonia in this patient with prior CT showing right lower lobe mass. Please correlate with patient's prior history and any prior tissue diagnosis. Assessment & Plan - Diagnosis (1) Lung cancer Qualifiers: Laterality: right Lung location: middle lobe of lung Qualified Code(s): C34.2 - Malignant neoplasm of middle lobe, bronchus or lung Is this a current diagnosis for this admission?: Yes Plan: Agree with no further treatment planned, ultimately will be hospice appropriate but we will see about placement. - Time Time Spent with patient: 35 or more minutes
--- NOTE | 2020-02-06 18:34 | PDOC PROGRESS REPORT ---
Subjective Date:: 02/06/20 Subjective:: Patient remains confused, he was seen by the oncologist Dr. Ko earlier this morning, he is recommending hospice care, I also spoke to him on the phone as well about his care. I was unable to reach the [id number] who is the POA for this patient, we need to address the CODE STATUS, patient is still a full code, I cannot maintain any reasonable conversation with the patient, Reason For Visit: PNEUMONIA Physical Exam Vital Signs: Temp Pulse Resp BP Pulse Ox 98.3 F 92 18 96/54 L 98 02/06/20 15:22 02/06/20 15:22 02/06/20 15:22 02/06/20 15:22 02/06/20 15:22 Intake & Output 02/05/20 02/06/20 02/07/20 06:59 06:59 06:59 Intake Total 1250 2537 1675 Balance 1250 2537 1675 Weight 60.7 kg 60.7 kg General appearance: PRESENT: no acute distress Eye exam: PRESENT: PERRLA Respiratory exam: PRESENT: clear to auscultation keegan Cardiovascular exam: PRESENT: +S1, +S2 GI/Abdominal exam: PRESENT: soft Neurological exam: PRESENT: alert, CN II-XII grossly intact Results Laboratory Results: 02/06/20 04:44 02/05/20 08:47 02/06/20 04:44 WBC 10.2 RBC 3.63 L Hgb 10.5 L Hct 32.6 L MCV 90 MCH 28.9 MCHC 32.2 RDW 15.4 H Plt Count 352 Seg Neutrophils % 75.6 02/04/20 03:57 Blood Blood Culture (PCR) - Final Staphylococcus Species 02/04/20 03:57 Blood Blood Culture - Final Staphylococcus Haemolyticus 02/04/20 02/04/20 02/04/20 01:35 10:10 10:10 Creatine Kinase < 20 L CK-MB (CK-2) 0.51 Troponin I < 0.012 < 0.012 02/04/20 02/04/20 02/04/20 16:22 16:22 22:11 Creatine Kinase < 20 L 30 L CK-MB (CK-2) 0.81 Troponin I < 0.012 02/04/20 22:11 Creatine Kinase CK-MB (CK-2) 0.89 Troponin I < 0.012 Impressions: Chest CT 02/04/20 00:00 IMPRESSION: Known right lower lobe and right hilar masses. Patchy bilateral ground-glass opacities which could represent superimposed pneumonia or metastatic lesions. Head CT 02/04/20 02:17 IMPRESSION: Atrophy and chronic small vessel ischemic changes with no acute intracranial abnormality. Chest X-Ray 02/04/20 02:18 IMPRESSION: Worsening right basilar opacity likely worsening pneumonia, this may be postobstructive pneumonia in this patient with prior CT showing right lower lobe mass. Please correlate with patient's prior history and any prior tissue diagnosis. Assessment & Plan - Diagnosis (1) Pneumonia Qualifiers: Pneumonia type: due to unspecified organism Laterality: bilateral Lung location: lower lobe of lung Qualified Code(s): J18.9 - Pneumonia, unspecified organism Is this a current diagnosis for this admission?: Yes Plan: Continue antibiotic (2) Metabolic encephalopathy Is this a current diagnosis for this admission?: Yes (3) Malignant neoplasm of unspecified part of right bronchus or lung Is this a current diagnosis for this admission?: Yes (4) Type 2 diabetes mellitus with diabetic polyneuropathy Qualifiers: Diabetes mellitus extermination supervisor insulin use: with extermination supervisor use Qualified Code(s): E11.42 - Type 2 diabetes mellitus with diabetic polyneuropathy; Z79.4 - detention (current) use of insulin Is this a current diagnosis for this admission?: Yes - Time Time Spent with patient: 25-34 minutes Level of Care: MEDICAL Medications reviewed and adjusted accordingly: Yes Anticipated discharge: Home - Inpatient Certification Based on my medical assessment, after consideration of the patient's comorbidities, presenting symptoms, or acuity I expect that the services needed warrant INPATIENT care.: Yes I certify that my determination is in accordance with my understanding of Medicare's requirements for reasonable and necessary INPATIENT services [42 CFR 412.3e].: Yes
[2020-02-06] MEDS: OXYCODONE-ACETAMINOPHEN 5-325 MG TABLET PO PRN (22:43)
[2020-02-06] MEDS: OXYCODONE HCL IR 5 MG TABLET PO PRN (22:44)
[2020-02-07 05:10] LABS: HEMATOCRIT 34.2 % (37.9-51.0); HEMOGLOBIN 11.2 g/dL (13.5-17.0); MEAN CORPUSCULAR HEMOGLOBIN 29.3 pg (27.0-33.4); MEAN CORPUSCULAR HGB CONC 32.7 g/dL (32.0-36.0); MEAN CORPUSCULAR VOLUME 90 fl (80-97); PLATELET COUNT 320 10^3/uL (150-450); RED BLOOD COUNT 3.82 10^6/uL (4.35-5.55); RED CELL DISTRIBUTION WIDTH 15.1 % (11.5-14.0); WHITE BLOOD COUNT 9.6 10^3/uL (4.0-10.5)
[2020-02-07] MEDS: HEPARIN SOD (PORCINE) 5,000 UNIT/ML 1 ML VIAL SUBCUT SCH ×3 (05:24→21:58)
[2020-02-07 06:12] LABS: ABSOLUTE LYMPHOCYTES# (MANUAL) 0.9 10^3/uL (0.5-4.7); ABSOLUTE MONOCYTES # (MANUAL) 1.4 10^3/uL (0.1-1.4); BAND NEUTROPHILS % (MANUAL) 1 % (3-5); BASOPHILS % (MANUAL) 0 % (0-2); EOSINOPHILS % (MANUAL) 1 % (0-6); LYMPHOCYTES % (MANUAL) 9 % (13-45); MONOCYTES % (MANUAL) 15 % (3-13); SEGMENTED NEUTROPHILS % (MAN) 74 % (42-78); TOTAL CELLS COUNTED 100
[2020-02-07 06:13] LABS: HYPERSEGMENTED NEUTROPHILS PRESENT; PLATELET COMMENT ADEQUATE
[2020-02-07 06:14] LABS: SCHISTOCYTES SLIGHT; TEAR DROP CELLS SLIGHT
[2020-02-07 06:15] LABS: RBC MORPHOLOGY COMMENT NORMO-CYTIC/CHROMIC
[2020-02-07] MEDS: CEFTRIAXONE 1 GM/D5W RTU 1 GM/50 ML RTUPB IV SCH (07:51)
[2020-02-07] MEDS: LEVOFLOXACIN 750 MG/D5W RTU 750 MG/150 ML RTUPB IV SCH (09:51)
[2020-02-07] MEDS: FINASTERIDE 5 MG TABLET PO SCH (09:51)
[2020-02-07] MEDS: TAMSULOSIN HCL 0.4 MG CAP.SR.24H PO SCH (09:51)
[2020-02-07] MEDS: RINGERS SOLUTION,LACTATED 1,000 ML IV PRN ×2 (09:52→22:48)
--- NOTE | 2020-02-07 19:13 | PDOC PROGRESS REPORT ---
Subjective Date:: 02/07/20 Subjective:: Patient seen by the bedside, no new complaints Reason For Visit: PNEUMONIA Physical Exam Vital Signs: Temp Pulse Resp BP Pulse Ox 97.6 F 87 18 127/54 H 98 02/07/20 15:25 02/07/20 15:25 02/07/20 15:25 02/07/20 15:25 02/07/20 15:25 Intake & Output 02/06/20 02/07/20 02/08/20 06:59 06:59 06:59 Intake Total 2537 2887 1350 Balance 2537 2887 1350 Weight 60.7 kg 65.1 kg General appearance: PRESENT: no acute distress Eye exam: PRESENT: PERRLA Respiratory exam: PRESENT: rhonchi Cardiovascular exam: PRESENT: +S1, +S2 GI/Abdominal exam: PRESENT: soft Results Laboratory Results: 02/07/20 04:26 02/05/20 08:47 02/07/20 04:26 WBC 9.6 RBC 3.82 L Hgb 11.2 L Hct 34.2 L MCV 90 MCH 29.3 MCHC 32.7 RDW 15.1 H Plt Count 320 Seg Neutrophils % Not Reportable 02/04/20 03:57 Blood Blood Culture (PCR) - Final Staphylococcus Species 02/04/20 03:57 Blood Blood Culture - Final Staphylococcus Haemolyticus 02/04/20 02/04/20 02/04/20 01:35 10:10 10:10 Creatine Kinase < 20 L CK-MB (CK-2) 0.51 Troponin I < 0.012 < 0.012 02/04/20 02/04/20 02/04/20 16:22 16:22 22:11 Creatine Kinase < 20 L 30 L CK-MB (CK-2) 0.81 Troponin I < 0.012 02/04/20 22:11 Creatine Kinase CK-MB (CK-2) 0.89 Troponin I < 0.012 Impressions: Chest CT 02/04/20 00:00 IMPRESSION: Known right lower lobe and right hilar masses. Patchy bilateral ground-glass opacities which could represent superimposed pneumonia or metastatic lesions. Head CT 02/04/20 02:17 IMPRESSION: Atrophy and chronic small vessel ischemic changes with no acute intracranial abnormality. Chest X-Ray 02/04/20 02:18 IMPRESSION: Worsening right basilar opacity likely worsening pneumonia, this may be postobstructive pneumonia in this patient with prior CT showing right lower lobe mass. Please correlate with patient's prior history and any prior tissue diagnosis. Assessment & Plan - Diagnosis (1) Pneumonia Qualifiers: Pneumonia type: due to unspecified organism Laterality: bilateral Lung location: lower lobe of lung Qualified Code(s): J18.9 - Pneumonia, unspecified organism Is this a current diagnosis for this admission?: Yes Plan: Continue antibiotic (2) Metabolic encephalopathy Is this a current diagnosis for this admission?: Yes (3) Malignant neoplasm of unspecified part of right bronchus or lung Is this a current diagnosis for this admission?: Yes (4) Type 2 diabetes mellitus with diabetic polyneuropathy Qualifiers: Diabetes mellitus terminal superintendent insulin use: with terminal superintendent use Qualified C ode(s): E11.42 - Type 2 diabetes mellitus with diabetic polyneuropathy; Z79.4 - [facility] (current) use of insulin Is this a current diagnosis for this admission?: Yes - Time Time Spent with patient: 25-34 minutes Level of Care: MEDICAL Medications reviewed and adjusted accordingly: Yes Anticipated discharge: Home
[2020-02-07] MEDS: OXYCODONE HCL IR 5 MG TABLET PO PRN (21:58)
[2020-02-07] MEDS: OXYCODONE-ACETAMINOPHEN 5-325 MG TABLET PO PRN (21:59)
[2020-02-08] MEDS: HEPARIN SOD (PORCINE) 5,000 UNIT/ML 1 ML VIAL SUBCUT SCH ×3 (05:57→21:28)
--- NOTE | 2020-02-08 08:03 | PDOC PROGRESS REPORT ---
Subjective Date:: 02/08/20 Subjective:: On Saturday had a long discussion with [id number] who has arranged a lot of his medical care, son is the POA but she is able to explain to him what is needed. I discussed the need for hospice. Went over what discharge planning is placed in their notes, on costs. She will be getting with discharge planning today and making a decision on discharge disposition. Reason For Visit: PNEUMONIA Physical Exam Vital Signs: Temp Pulse Resp BP Pulse Ox 97.9 F 94 18 109/50 L 98 02/08/20 00:22 02/08/20 02:00 02/08/20 00:22 02/08/20 00:22 02/08/20 00:22 Intake & Output 02/07/20 02/08/20 02/09/20 06:59 06:59 06:59 Intake Total 2887 2468 Balance 2887 2468 Weight 65.1 kg 65.6 kg General appearance: PRESENT: no acute distress, well-developed, well-nourished Head exam: PRESENT: atraumatic, normocephalic Eye exam: PRESENT: conjunctiva pink, EOMI, PERRLA. ABSENT: scleral icterus Ear exam: PRESENT: normal external ear exam Mouth exam: PRESENT: moist, tongue midline Neck exam: ABSENT: carotid bruit, JVD, lymphadenopathy, thyromegaly Respiratory exam: PRESENT: clear to auscultation keegan. ABSENT: rales, rhonchi, wheezes Cardiovascular exam: PRESENT: RRR. ABSENT: diastolic murmur, rubs, systolic murmur Pulses: PRESENT: normal dorsalis pedis pul Vascular exam: PRESENT: normal capillary refill GI/Abdominal exam: PRESENT: normal bowel sounds, soft. ABSENT: distended, guarding, mass, organolmegaly, rebound, tenderness Rectal exam: PRESENT: deferred Extremities exam: PRESENT: full ROM. ABSENT: calf tenderness, clubbing, pedal edema Neurological exam: PRESENT: alert, awake, oriented to person, oriented to place, oriented to time, oriented to situation, CN II-XII grossly intact. ABSENT: motor sensory deficit Psychiatric exam: PRESENT: appropriate affect, normal mood. ABSENT: homicidal ideation, suicidal ideation Skin exam: PRESENT: dry, intact, warm. ABSENT: cyanosis, rash Results Laboratory Results: 02/07/20 04:26 02/05/20 08:47 02/04/20 02/04/20 02/04/20 01:35 10:10 10:10 Creatine Kinase < 20 L CK-MB (CK-2) 0.51 Troponin I < 0.012 < 0.012 02/04/20 02/04/20 02/04/20 16:22 16:22 22:11 Creatine Kinase < 20 L 30 L CK-MB (CK-2) 0.81 Troponin I < 0.012 02/04/20 22:11 Creatine Kinase CK-MB (CK-2) 0.89 Troponin I < 0.012 Impressions: Chest CT 02/04/20 00:00 IMPRESSION: Known right lower lobe and right hilar masses. Patchy bilateral ground-glass opacities which could represent superimposed pneumonia or metastatic lesions. Head CT 02/04/20 02:17 IMPRESSION: Atrophy and chronic small vessel ischemic changes with no acute intracranial abnormality. Chest X-Ray 02/04/20 02:18 IMPRESSION: Worsening right basilar opacity likely worsening pneumonia, this may be postobstructive pneumonia in this patient with prior CT showing right lower lobe mass. Please correlate with patient's prior history and any prior tissue diagnosis. Assessment & Plan - Diagnosis (1) Lung cancer Qualifiers: Laterality: right Lung location: middle lobe of lung Qualified Code(s): C34.2 - Malignant neoplasm of middle lobe, bronchus or lung Is this a current diagnosis for this admission?: Yes Plan: Hospice appropriate, no further treatment planned. We will follow peripherally. - Time Time Spent with patient: 35 or more minutes
[2020-02-08] MEDS: RINGERS SOLUTION,LACTATED 1,000 ML IV PRN (08:35)
[2020-02-08] MEDS: CEFTRIAXONE 1 GM/D5W RTU 1 GM/50 ML RTUPB IV SCH (08:35)
[2020-02-08] MEDS: FINASTERIDE 5 MG TABLET PO SCH (11:50)
[2020-02-08] MEDS: TAMSULOSIN HCL 0.4 MG CAP.SR.24H PO SCH (11:50)
[2020-02-08] MEDS: LEVOFLOXACIN 750 MG/D5W RTU 750 MG/150 ML RTUPB IV SCH (11:50)
--- NOTE | 2020-02-08 21:07 | PDOC PROGRESS REPORT ---
Subjective Date:: 02/08/20 Subjective:: Patient seen by the bedside, plan is to transition care to hospice, discharge pl anning making arrangement for this Reason For Visit: PNEUMONIA Physical Exam Vital Signs: Temp Pulse Resp BP Pulse Ox 97.6 F 86 17 107/50 L 99 02/08/20 19:48 02/08/20 19:48 02/08/20 19:48 02/08/20 19:48 02/08/20 19:48 Intake & Output 02/07/20 02/08/20 02/09/20 06:59 06:59 06:59 Intake Total 2887 2468 1536 Balance 2887 2468 1536 Weight 65.1 kg 65.6 kg General appearance: PRESENT: no acute distress Eye exam: PRESENT: PERRLA Respiratory exam: PRESENT: rhonchi Cardiovascular exam: PRESENT: +S1, +S2 Neurological exam: PRESENT: alert Results Laboratory Results: 02/07/20 04:26 02/05/20 08:47 02/04/20 02/04/20 02/04/20 01:35 10:10 10:10 Creatine Kinase < 20 L CK-MB (CK-2) 0.51 Troponin I < 0.012 < 0.012 02/04/20 02/04/20 02/04/20 16:22 16:22 22:11 Creatine Kinase < 20 L 30 L CK-MB (CK-2) 0.81 Troponin I < 0.012 02/04/20 22:11 Creatine Kinase CK-MB (CK-2) 0.89 Troponin I < 0.012 Impressions: Chest CT 02/04/20 00:00 IMPRESSION: Known right lower lobe and right hilar masses. Patchy bilateral ground-glass opacities which could represent superimposed pneumonia or metastatic lesions. Head CT 02/04/20 02:17 IMPRESSION: Atrophy and chronic small vessel ischemic changes with no acute intracranial abnormality. Chest X-Ray 02/04/20 02:18 IMPRESSION: Worsening right basilar opacity likely worsening pneumonia, this may be postobstructive pneumonia in this patient with prior CT showing right lower lobe mass. Please correlate with patient's prior history and any prior tissue diagnosis. Assessment & Plan - Diagnosis (1) Pneumonia Qualifiers: Pneumonia type: due to unspecified organism Laterality: bilateral Lung location: lower lobe of lung Qualified Code(s): J18.9 - Pneumonia, unspecified organism Is this a current diagnosis for this admission?: Yes Plan: Continue antibiotic (2) Metabolic encephalopathy Is this a current diagnosis for this admission?: Yes (3) Malignant neoplasm of unspecified part of right bronchus or lung Is this a current diagnosis for this admission?: Yes Plan: Normal plan for chemotherapy, radiation therapy or surgery, patient care is been transitioned to hospice (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
[2020-02-09] MEDS: HEPARIN SOD (PORCINE) 5,000 UNIT/ML 1 ML VIAL SUBCUT SCH ×3 (05:36→21:17)
[2020-02-09] MEDS: CEFTRIAXONE 1 GM/D5W RTU 1 GM/50 ML RTUPB IV SCH (10:50)
[2020-02-09] MEDS: LEVOFLOXACIN 750 MG/D5W RTU 750 MG/150 ML RTUPB IV SCH (10:50)
[2020-02-09] MEDS: RINGERS SOLUTION,LACTATED 1,000 ML IV PRN ×2 (10:50→21:21)
[2020-02-09] MEDS: OXYCODONE HCL IR 5 MG TABLET PO PRN (10:51)
[2020-02-09] MEDS: TAMSULOSIN HCL 0.4 MG CAP.SR.24H PO SCH (10:51)
[2020-02-09] MEDS: FINASTERIDE 5 MG TABLET PO SCH (10:52)
--- NOTE | 2020-02-09 20:35 | PDOC PROGRESS REPORT ---
Subjective Date:: 02/09/20 Subjective:: Patient seen by the bedside, plan is to transition care to hospice, discharge pl anning making arrangement for this Reason For Visit: PNEUMONIA Physical Exam Vital Signs: Temp Pulse Resp BP Pulse Ox 97.3 F 95 18 101/51 L 95 02/09/20 08:52 02/09/20 14:00 02/09/20 11:26 02/09/20 11:26 02/09/20 11:26 Intake & Output 02/08/20 02/09/20 02/10/20 06:59 06:59 06:59 Intake Total 2468 2776 580 Balance 2468 2776 580 Weight 65.6 kg 66.9 kg General appearance: PRESENT: no acute distress Eye exam: PRESENT: PERRLA Respiratory exam: PRESENT: clear to auscultation keegan Cardiovascular exam: PRESENT: +S1, +S2 GI/Abdominal exam: PRESENT: soft Neurological exam: PRESENT: alert, CN II-XII grossly intact Results Laboratory Results: 02/07/20 04:26 02/05/20 08:47 02/04/20 01:35 Blood Blood Culture - Final NO GROWTH IN 5 DAYS 02/04/20 02/04/20 02/04/20 01:35 10:10 10:10 Creatine Kinase < 20 L CK-MB (CK-2) 0.51 Troponin I < 0.012 < 0.012 02/04/20 02/04/20 02/04/20 16:22 16:22 22:11 Creatine Kinase < 20 L 30 L CK-MB (CK-2) 0.81 Troponin I < 0.012 02/04/20 22:11 Creatine Kinase CK-MB (CK-2) 0.89 Troponin I < 0.012 Impressions: Chest CT 02/04/20 00:00 IMPRESSION: Known right lower lobe and right hilar masses. Patchy bilateral ground-glass opacities which could represent superimposed pneumonia or metastatic lesions. Head CT 02/04/20 02:17 IMPRESSION: Atrophy and chronic small vessel ischemic changes with no acute intracranial abnormality. Chest X-Ray 02/04/20 02:18 IMPRESSION: Worsening right basilar opacity likely worsening pneumonia, this may be postobstructive pneumonia in this patient with prior CT showing right lower lobe mass. Please correlate with patient's prior history and any prior tissue diagnosis. Assessment & Plan - Diagnosis (1) Pneumonia Qualifiers: Pneumonia type: due to unspecified organism Laterality: bilateral Lung l ocation: lower lobe of lung Qualified Code(s): J18.9 - Pneumonia, unspecified organism Is this a current diagnosis for this admission?: Yes Plan: Continue antibiotic (2) Metabolic encephalopathy Is this a current diagnosis for this admission?: Yes Plan: continue treatment (3) Malignant neoplasm of unspecified part of right bronchus or lung Is this a current diagnosis for this admission?: Yes (4) Type 2 diabetes mellitus with diabetic polyneuropathy Qualifiers: Diabetes mellitus half-way insulin use: with long term acute care registered nurse use Qualified Code(s): E11.42 - Type 2 diabetes mellitus with diabetic polyneuropathy; Z79.4 - skilled nursing (current) use of insulin Is this a current diagnosis for this admission?: Yes - Time Time Spent with patient: 25-34 minutes Level of Care: MEDICAL Medications reviewed and adjusted accordingly: Yes Anticipated discharge: Home Anticipated DC Timeframe: within 48 hours - Inpatient Certification Based on my medical assessment, after consideration of the patient's comorbidities, presenting symptoms, or acuity I expect that the services needed warrant INPATIENT care.: Yes I certify that my determination is in accordance with my understanding of Medicare's requirements for reasonable and necessary INPATIENT services [42 CFR 412.3e].: Yes
[2020-02-10] MEDS: HEPARIN SOD (PORCINE) 5,000 UNIT/ML 1 ML VIAL SUBCUT SCH ×3 (05:48→22:02)
[2020-02-10] MEDS: RINGERS SOLUTION,LACTATED 1,000 ML IV PRN (07:21)
[2020-02-10] MEDS: LEVOFLOXACIN 750 MG/D5W RTU 750 MG/150 ML RTUPB IV SCH (09:35)
[2020-02-10] MEDS: FINASTERIDE 5 MG TABLET PO SCH (09:35)
[2020-02-10] MEDS: TAMSULOSIN HCL 0.4 MG CAP.SR.24H PO SCH (09:35)
[2020-02-10] MEDS: CEFTRIAXONE 1 GM/D5W RTU 1 GM/50 ML RTUPB IV SCH (09:36)
--- NOTE | 2020-02-10 20:53 | PDOC PROGRESS REPORT ---
Subjective Date:: 02/10/20 Subjective:: Patient seen by the bedside, discharge planning making arrangement for hospice p lacement Reason For Visit: PNEUMONIA Physical Exam Vital Signs: Temp Pulse Resp BP Pulse Ox 97.4 F 93 19 99/45 L 97 02/10/20 15:52 02/10/20 15:52 02/10/20 15:52 02/10/20 15:52 02/10/20 15:52 Intake & Output 02/09/20 02/10/20 02/11/20 06:59 06:59 06:59 Intake Total 2771819 Balance 2775 1819 2089 Weight 66.9 kg 64.8 kg General appearance: PRESENT: no acute distress Eye exam: PRESENT: PERRLA Respiratory exam: PRESENT: clear to auscultation keegan Cardiovascular exam: PRESENT: +S1, +S2 GI/Abdominal exam: PRESENT: soft Results Laboratory Results: 02/07/20 04:26 02/05/20 08:47 02/04/20 02/04/20 02/04/20 01:35 10:10 10:10 Creatine Kinase < 20 L CK-MB (CK-2) 0.51 Troponin I < 0.012 < 0.012 02/04/20 02/04/20 02/04/20 16:22 16:22 22:11 Creatine Kinase < 20 L 30 L CK-MB (CK-2) 0.81 Troponin I < 0.012 02/04/20 22:11 Creatine Kinase CK-MB (CK-2) 0.89 Troponin I < 0.012 Impressions: Chest CT 02/04/20 00:00 IMPRESSION: Known right lower lobe and right hilar masses. Patchy bilateral ground-glass opacities which could represent superimposed pneumonia or metastatic lesions. Head CT 02/04/20 02:17 IMPRESSION: Atrophy and chronic small vessel ischemic changes with no acute intracranial abnormality. Chest X-Ray 02/04/20 02:18 IMPRESSION: Worsening right basilar opacity likely worsening pneumonia, this may be postobstructive pneumonia in this patient with prior CT showing right lower lobe mass. Please correlate with patient's prior history and any prior tissue diagnosis. Assessment & Plan - Diagnosis (1) Pneumonia Qualifiers: Pneumonia type: due to unspecified organism Laterality: bilateral Lung location: lower lobe of lung Qualified Code(s): J18.9 - Pneumonia, unspecified organism Is this a current diagnosis for this admission?: Yes Plan: Continue antibiotic (2) Metabolic encephalopathy Is this a current diagnosis for this admission?: Yes (3) Malignant neoplasm of unspecified part of right bronchus or lung Is this a current diagnosis for this admission?: Yes (4) Type 2 diabetes mellitus with diabetic polyneuropathy Qualifiers: Diabetes mellitus correction insulin use: with correction use Qualified Code(s): E11.42 - Type 2 diabetes mellitus with diabetic polyneuropathy; Z79.4 - technician terminal and repeater (current) use of insulin Is this a current diagnosis for this admission?: Yes - Time Time Spent with patient: 25-34 minutes Level of Care: MEDICAL Medications reviewed and adjusted accordingly: Yes Anticipated discharge: Hospice Anticipated DC Timeframe: when bed available
[2020-02-11] MEDS: RINGERS SOLUTION,LACTATED 1,000 ML IV PRN ×2 (03:41→14:00)
[2020-02-11] MEDS: HEPARIN SOD (PORCINE) 5,000 UNIT/ML 1 ML VIAL SUBCUT SCH ×3 (06:00→21:13)
[2020-02-11] MEDS: FINASTERIDE 5 MG TABLET PO SCH (10:11)
[2020-02-11] MEDS: CEFTRIAXONE 1 GM/D5W RTU 1 GM/50 ML RTUPB IV SCH (10:11)
[2020-02-11] MEDS: TAMSULOSIN HCL 0.4 MG CAP.SR.24H PO SCH (10:11)
[2020-02-11] MEDS: OXYCODONE-ACETAMINOPHEN 5-325 MG TABLET PO PRN (10:15)
--- NOTE | 2020-02-11 15:30 | PDOC PROGRESS REPORT ---
Subjective Date:: 02/11/20 Subjective:: Patient seen by the bedside no new complaints Reason For Visit: PNEUMONIA Physical Exam Vital Signs: Temp Pulse Resp BP Pulse Ox 98.6 F 108 H 17 96/60 L 100 02/11/20 11:46 02/11/20 11:46 02/11/20 11:46 02/11/20 11:46 02/11/20 11:46 Intake & Output 02/10/20 02/11/20 02/12/20 06:59 06:59 06:59 Intake Total 1820 3090 236 Output Total 0 Balance 1820 3090 236 Weight 64.8 kg 64 kg General appearance: PRESENT: no acute distress Eye exam: PRESENT: PERRLA Respiratory exam: PRESENT: clear to auscultation keegan Cardiovascular exam: PRESENT: +S1, +S2 GI/Abdominal exam: PRESENT: soft Results Laboratory Results: 02/07/20 04:26 02/05/20 08:47 02/04/20 02/04/20 02/04/20 01:35 10:10 10:10 Creatine Kinase < 20 L CK-MB (CK-2) 0.51 Troponin I < 0.012 < 0.012 02/04/20 02/04/20 02/04/20 16:22 16:22 22:11 Creatine Kinase < 20 L 30 L CK-MB (CK-2) 0.81 Troponin I < 0.012 02/04/20 22:11 Creatine Kinase CK-MB (CK-2) 0.89 Troponin I < 0.012 Impressions: Chest CT 02/04/20 00:00 IMPRESSION: Known right lower lobe and right hilar masses. Patchy bilateral ground-glass opacities which could represent superimposed pneumonia or metastatic lesions. Head CT 02/04/20 02:17 IMPRESSION: Atrophy and chronic small vessel ischemic changes with no acute intracranial abnormality. Chest X-Ray 02/04/20 02:18 IMPRESSION: Worsening right basilar opacity likely worsening pneumonia, this may be postobstructive pneumonia in this patient with prior CT showing right lower lobe mass. Please correlate with patient's prior history and any prior tissue diagnosis. Assessment & Plan - Diagnosis (1) Pneumonia Qualifiers: Pneumonia type: due to unspecified organism Laterality: bilateral Lung location: lower lobe of lung Qualified Code(s): J18.9 - Pneumonia, unspecified organism Is this a current diagnosis for this admission?: Yes Plan: Continue antibiotic (2) Metabolic encephalopathy Is this a current diagnosis for this admission?: Yes (3) Malignant neoplasm of unspecified part of right bronchus or lung Is this a current diagnosis for this admission?: Yes (4) Type 2 diabetes mellitus with diabetic polyneuropathy Qualifiers: Diabetes mellitus long wall mining machine helper insulin use: with residential use Qualified Code(s): E11.42 - Type 2 diabetes mellitus with diabetic polyneuropathy; Z79.4 - [facility] (current) use of insulin Is this a current diagnosis for this admission?: Yes - Time Time Spent with patient: 25-34 minutes Level of Care: MEDICAL Anticipated discharge: Hospice Anticipated DC Timeframe: when bed available
[2020-02-12] MEDS: RINGERS SOLUTION,LACTATED 1,000 ML IV PRN ×2 (06:23→17:21)
[2020-02-12] MEDS: HEPARIN SOD (PORCINE) 5,000 UNIT/ML 1 ML VIAL SUBCUT SCH ×3 (06:23→21:48)
[2020-02-12] MEDS: TAMSULOSIN HCL 0.4 MG CAP.SR.24H PO SCH (10:53)
[2020-02-12] MEDS: FINASTERIDE 5 MG TABLET PO SCH (10:54)
--- NOTE | 2020-02-12 13:46 | PDOC PROGRESS REPORT ---
Subjective Date:: 02/12/20 Subjective:: No reported fever or hills. No chest pain or difficulty with breathing. No nause a or vomiting. PO intake remain a challenge. Not clear about abdominal pain. Reason For Visit: PNEUMONIA Physical Exam Vital Signs: Temp Pulse Resp BP Pulse Ox 97.8 F 99 19 94/50 L 100 02/12/20 10:00 02/12/20 07:22 02/12/20 07:22 02/12/20 07:22 02/12/20 07:22 Intake & Output 02/11/20 02/12/20 02/13/20 06:59 06:59 06:59 Intake Total 3090 2522 Output Total 0 Balance 3090 2522 Weight 64 kg 65.7 kg General appearance: PRESENT: no acute distress Head exam: PRESENT: atraumatic, normocephalic Eye exam: PRESENT: conjunctiva pink. ABSENT: scleral icterus Mouth exam: PRESENT: moist - fairly Respiratory exam: PRESENT: clear to auscultation keegan, decreased breath sounds Cardiovascular exam: PRESENT: RRR, +S1, +S2 Vascular exam: ABSENT: pallor GI/Abdominal exam: PRESENT: normal bowel sounds, soft, tenderness - nonspecific to deep palpation over suprapubic region Extremities exam: ABSENT: pedal edema Neurological exam: PRESENT: alert, awake Skin exam: PRESENT: dry, warm Results Laboratory Results: 02/07/20 04:26 02/05/20 08:47 02/04/20 02/04/20 02/04/20 01:35 10:10 10:10 Creatine Kinase < 20 L CK-MB (CK-2) 0.51 Troponin I < 0.012 < 0.012 02/04/20 02/04/20 02/04/20 16:22 16:22 22:11 Creatine Kinase < 20 L 30 L CK-MB (CK-2) 0.81 Troponin I < 0.012 02/04/20 22:11 Creatine Kinase CK-MB (CK-2) 0.89 Troponin I < 0.012 Impressions: Chest CT 02/04/20 00:00 IMPRESSION: Known right lower lobe and right hilar masses. Patchy bilateral ground-glass opacities which could represent superimposed pneumonia or metastatic lesions. Head CT 02/04/20 02:17 IMPRESSION: Atrophy and chronic small vessel ischemic changes with no acute intracranial abnormality. Chest X-Ray 02/04/20 02:18 IMPRESSION: Worsening right basilar opacity likely worsening pneumonia, this may be postobstructive pneumonia in this patient with prior CT showing right lower lobe mass. Please correlate with patient's prior history and any prior tissue diagnosis. Assessment & Plan - Diagnosis (1) Pneumonia Qualifiers: Pneumonia type: due to unspecified organism Laterality: bilateral Lung location: lower lobe of lung Qualified Code(s): J18.9 - Pneumonia, unspecified organism Is this a current diagnosis for this admission?: Yes Plan: D/C IV Rocephin and Levofloxacin. Start on Levofloxacin 500 mg po daily. (2) Malignant neoplasm of unspecified part of right bronchus or lung Is this a current diagnosis for this admission?: Yes Plan: Continue current medication management. (3) Type 2 diabetes mellitus Qualifiers: Diabetes mellitus fpc insulin use: with fpc use Diabetes mellitus complication status: with neurologic complications Diabetes mellitus complication detail: with polyneuropathy Qualified Code(s): E11.42 - Type 2 diabetes mellitus with diabetic polyneuropathy; Z79.4 - half-way (current) use of insulin Is this a current diagnosis for this admission?: Yes Plan: Continue current medication management. - Time Time Spent with patient: 25-34 minutes Level of Care: MEDICAL Medications reviewed and adjusted accordingly: Yes Anticipated discharge: Home with Homehealth Anticipated DC Timeframe: within 72 hours - Inpatient Certification Based on my medical assessment, after consideration of the patient's comorbidities, presenting symptoms, or acuity I expect that the services needed warrant INPATIENT care.: Yes I certify that my determination is in accordance with my understanding of Medicare's requirements for reasonable and necessary INPATIENT services [42 CFR 412.3e].: Yes Medical Necessity: Significant Comorbidiites Make Outpatient Treatment Too Risky, Need Close Monitoring Due to Risk of Patient Decompensation, Need For IV Fluids, Need For Continuous Telemetry Monitoring, Need for IV Antibiotics, Risk of Complication if Not Cared For in Hospital, Risk of Diagnosis Which Will R equire Inpatient Eval/Care/Monitoring Post Hospital Care: D/C Roller Operator Documentation - Plan Summary Plan Summary: Start on Levofloxacin 500 mg po daily. Continue other current medication management. Obtain CBC with diff and CMP in AM.
[2020-02-12] MEDS: LEVOFLOXACIN 500 MG TABLET PO SCH (14:03)
[2020-02-13] MEDS: HEPARIN SOD (PORCINE) 5,000 UNIT/ML 1 ML VIAL SUBCUT SCH ×3 (05:33→21:51)
[2020-02-13] MEDS: RINGERS SOLUTION,LACTATED 1,000 ML IV PRN ×2 (05:33→21:55)
[2020-02-13 08:34] LABS: ALBUMIN 2.4 g/dL (3.5-5.0); ALKALINE PHOSPHATASE 83 U/L (38-126); ANION GAP 7 (5-19); ASPARTATE AMINO TRANSFERASE 19 U/L (17-59); BILIRUBIN,DIRECT 0.2 mg/dL (0.0-0.4); BILIRUBIN,TOTAL 0.5 mg/dL (0.2-1.3); BLOOD UREA NITROGEN 5 mg/dL (7-20); CALCIUM 10.1 mg/dL (8.4-10.2); CARBON DIOXIDE 26 mmol/L (22-30); CHLORIDE 98 mmol/L (98-107); GLUCOSE 169 mg/dL (75-110); POTASSIUM 4.2 mmol/L (3.6-5.0); TOTAL PROTEIN 5.2 g/dL (6.3-8.2)
[2020-02-13] MEDS: TAMSULOSIN HCL 0.4 MG CAP.SR.24H PO SCH (09:58)
[2020-02-13] MEDS: LEVOFLOXACIN 500 MG TABLET PO SCH (09:58)
[2020-02-13] MEDS: FINASTERIDE 5 MG TABLET PO SCH (09:58)
--- NOTE | 2020-02-13 12:33 | PDOC PROGRESS REPORT ---
Subjective Date:: 02/13/20 Subjective:: No chest pain or difficulty with breathing. No nausea or vomiting. PO intake rem ain a challenge. No fever or chills. Reason For Visit: PNEUMONIA Physical Exam Vital Signs: Temp Pulse Resp BP Pulse Ox 97.3 F 101 H 20 109/64 100 02/13/20 07:23 02/13/20 07:23 02/13/20 07:23 02/13/20 07:23 02/13/20 07:23 Intake & Output 02/12/20 02/13/20 02/14/20 06:59 06:59 06:59 Intake Total 2521 Balance 2521 Weight 65.7 kg 65.7 kg Physical Exam: General appearance: PRESENT: no acute distress Head exam: PRESENT: atraumatic, normocephalic Eye exam: PRESENT: conjunctiva pink. ABSENT: pallor, sclera icterus Mouth exam: PRESENT: moist - fairly Respiratory exam: PRESENT: clear to auscultation keegan, decreased breath sounds Cardiovascular exam: PRESENT: RRR, +S1, +S2 GI/Abdominal exam: PRESENT: normal bowel sounds, soft ABSENT: tenderness Extremities exam: ABSENT: pedal edema Neurological exam: PRESENT: alert, awake Skin exam: PRESENT: dry, warm Results Laboratory Results: 02/13/20 05:18 02/13/20 07:29 02/13/20 02/13/20 05:18 07:29 WBC Cancelled RBC Cancelled Hgb Cancelled Hct Cancelled MCV Cancelled MCH Cancelled MCHC Cancelled RDW Cancelled Plt Count Cancelled Seg Neutrophils % Cancelled Sodium 130.8 L Potassium 4.2 Chloride 98 Carbon Dioxide 26 Anion Gap 7 BUN 5 L Creatinine 0.45 L Est GFR ( Amer) > 60 Glucose 169 H Calcium 10.1 Total Bilirubin 0.5 AST 19 Alkaline Phosphatase 83 Total Protein 5.2 L Albumin 2.4 L 02/04/20 02/04/20 02/04/20 01:35 10:10 10:10 Creatine Kinase < 20 L CK-MB (CK-2) 0.51 Troponin I < 0.012 < 0.012 02/04/20 02/04/20 02/04/20 16:22 16:22 22:11 Creatine Kinase < 20 L 30 L CK-MB (CK-2) 0.81 Troponin I < 0.012 02/04/20 22:11 Creatine Kinase CK-MB (CK-2) 0.89 Troponin I < 0.012 Impressions: Chest CT 02/04/20 00:00 IMPRESSION: Known right lower lobe and right hilar masses. Patchy bilateral ground-glass opacities which could represent superimposed pneumonia or metastatic lesions. Head CT 02/04/20 02:17 IMPRESSION: Atrophy and chronic small vessel ischemic changes with no acute intracranial abnormality. Chest X-Ray 02/04/20 02:18 IMPRESSION: Worsening right basilar opacity likely worsening pneumonia, this may be postobstructive pneumonia in this patient with prior CT showing right lower lobe mass. Please correlate with patient's prior history and any prior tissue diagnosis. Assessment & Plan - Diagnosis (1) Pneumonia Qualifiers: Pneumonia type: due to unspecified organism Laterality: bilateral Lung location: lower lobe of lung Qualified Code(s): J18.9 - Pneumonia, unspecified organism Is this a current diagnosis for this admission?: Yes (2) Malignant neoplasm of unspecified part of right bronchus or lung Is this a current diagnosis for this admission?: Yes (3) Type 2 diabetes mellitus Qualifiers: Diabetes mellitus alf insulin use: with alf use Diabetes mellitus complication status: with neurologic complications Diabetes mellitus complication detail: with polyneuropathy Qualified Code(s): E11.42 - Type 2 diabetes mellitus with diabetic polyneuropathy; Z79.4 - petroleum terminal plant operator (current) use of insulin Is this a current diagnosis for this admission?: Yes - Time Time Spent with patient: 25-34 minutes Level of Care: MEDICAL Medications reviewed and adjusted accordingly: Yes Anticipated discharge: Home with Homehealth, SNF Anticipated DC Timeframe: within 72 hours - Inpatient Certification Based on my medical assessment, after consideration of the patient's comorbidities, presenting symptoms, or acuity I expect that the services needed warrant INPATIENT care.: Yes I certify that my determination is in accordance with my understanding of Medicare's requirements for reasonable and necessary INPATIENT services [42 CFR 412.3e].: Yes Medical Necessity: Significant Comorbidiites Make Outpatient Treatment Too Risky, Need Close Monitoring Due to Risk of Patient Decompensation, Need For Continuous Telemetry Monitoring, Risk of Complication if Not Cared For in Hospital, Risk of Diagnosis Which Will Require Inpatient Eval/Care/Monitoring Post Hospital Care: D/C Mail Distribution Clerk Documentation, D/C or Transfer Summary - Plan Summary Plan Summary: Continue current medication management.
[2020-02-14] MEDS: HEPARIN SOD (PORCINE) 5,000 UNIT/ML 1 ML VIAL SUBCUT SCH ×3 (05:55→23:18)
[2020-02-14] MEDS: FINASTERIDE 5 MG TABLET PO SCH (09:02)
[2020-02-14] MEDS: TAMSULOSIN HCL 0.4 MG CAP.SR.24H PO SCH (09:02)
[2020-02-14] MEDS: LEVOFLOXACIN 500 MG TABLET PO SCH (09:02)
[2020-02-14] MEDS: RINGERS SOLUTION,LACTATED 1,000 ML IV PRN (09:05)
--- NOTE | 2020-02-14 10:31 | PDOC PROGRESS REPORT ---
Subjective Date:: 02/14/20 Subjective:: No chest pain or difficulty with breathing. No abdominal pain, nausea or vomitin g. No fever or chills. Reason For Visit: PNEUMONIA Physical Exam Vital Signs: Temp Pulse Resp BP Pulse Ox 98.2 F 108 H 20 118/66 100 02/14/20 09:10 02/14/20 07:42 02/14/20 07:42 02/14/20 07:42 02/14/20 07:42 Intake & Output 02/13/20 02/14/20 02/15/20 06:59 06:59 06:59 Intake Total 1999 1360 1000 Balance 1999 1360 1000 Weight 65.7 kg 63.6 kg Physical Exam: General appearance: PRESENT: no acute distress Head exam: PRESENT: atraumatic, normocephalic Eye exam: PRESENT: conjunctiva pink. ABSENT: pallor, sclera icterus Mouth exam: PRESENT: moist - fairly Respiratory exam: PRESENT: clear to auscultation keegan, decreased breath sounds Cardiovascular exam: PRESENT: RRR, +S1, +S2 GI/Abdominal exam: PRESENT: normal bowel sounds, soft ABSENT: tenderness Extremities exam: ABSENT: pedal edema Neurological exam: PRESENT: alert, awake Skin exam: PRESENT: dry, warm Results Laboratory Results: 02/13/20 05:18 02/13/20 07:29 02/04/20 02/04/20 02/04/20 01:35 10:10 10:10 Creatine Kinase < 20 L CK-MB (CK-2) 0.51 Troponin I < 0.012 < 0.012 02/04/20 02/04/20 02/04/20 16:22 16:22 22:11 Creatine Kinase < 20 L 30 L CK-MB (CK-2) 0.81 Troponin I < 0.012 02/04/20 22:11 Creatine Kinase CK-MB (CK-2) 0.89 Troponin I < 0.012 Impressions: Chest CT 02/04/20 00:00 IMPRESSION: Known right lower lobe and right hilar masses. Patchy bilateral ground-glass opacities which could represent superimposed pneumonia or metastatic lesions. Head CT 02/04/20 02:17 IMPRESSION: Atrophy and chronic small vessel ischemic changes with no acute intracranial abnormality. Chest X-Ray 02/04/20 02:18 IMPRESSION: Worsening right basilar opacity likely worsening pneumonia, this may be postobstructive pneumonia in this patient with prior CT showing right lower lobe mass. Please correlate with patient's prior history and any prior tissue diagnosis. Assessment & Plan - Diagnosis (1) Pneumonia Qualifiers: Pneumonia type: due to unspecified organism Laterality: bilateral Lung location: lower lobe of lung Qualified Code(s): J18.9 - Pneumonia, unspecified organism Is this a current diagnosis for this admission?: Yes (2) Malignant neoplasm of unspecified part of right bronchus or lung Is this a current diagnosis for this admission?: Yes (3) Type 2 diabetes mellitus Qualifiers: Diabetes mellitus assisted insulin use: with terminologist use Diabetes mellitus complication status: with neurologic complications Diabetes mellitus complication detail: with polyneuropathy Qualified Code(s): E11.42 - Type 2 diabetes mellitus with diabetic polyneuropathy; Z79.4 - [facility] (current) use of insulin Is this a current diagnosis for this admission?: Yes - Time Time Spent with patient: 25-34 minutes Level of Care: MEDICAL Medications reviewed and adjusted accordingly: Yes Anticipated discharge: Home with Homehealth, SNF Anticipated DC Timeframe: within 72 hours - Inpatient Certification Based on my medical assessment, after consideration of the patient's comorbidities, presenting symptoms, or acuity I expect that the services needed warrant INPATIENT care.: Yes I certify that my determination is in accordance with my understanding of Medicare's requirements for reasonable and necessary INPATIENT services [42 CFR 412.3e].: Yes Medical Necessity: Significant Comorbidiites Make Outpatient Treatment Too Risky, Need Close Monitoring Due to Risk of Patient Decompensation, Need For Continuous Telemetry Monitoring, Risk of Complication if Not Cared For in Hospital, Risk of Diagnosis Which Will Require Inpatient Eval/Care/Monitoring Post Hospital Care: D/C Brilliandeer Lopper Documentation, D/C or Transfer Summary - Plan Summary Plan Summary: Continue current medication management.
[2020-02-15 05:50] LABS: ALBUMIN 2.5 g/dL (3.5-5.0); ALKALINE PHOSPHATASE 81 U/L (38-126); ASPARTATE AMINO TRANSFERASE 20 U/L (17-59); BILIRUBIN,DIRECT 0.2 mg/dL (0.0-0.4); BILIRUBIN,TOTAL 0.4 mg/dL (0.2-1.3); BLOOD UREA NITROGEN 6 mg/dL (7-20); GLUCOSE 225 mg/dL (75-110); POTASSIUM 3.7 mmol/L (3.6-5.0); TOTAL PROTEIN 5.5 g/dL (6.3-8.2)
[2020-02-15 06:01] LABS: CARBON DIOXIDE 28 mmol/L (22-30); CHLORIDE 100 mmol/L (98-107)
[2020-02-15 06:03] LABS: ANION GAP 4 (5-19)
[2020-02-15] MEDS: RINGERS SOLUTION,LACTATED 1,000 ML IV PRN ×2 (06:35→17:53)
[2020-02-15] MEDS: HEPARIN SOD (PORCINE) 5,000 UNIT/ML 1 ML VIAL SUBCUT SCH ×3 (06:35→21:02)
[2020-02-15] MEDS: TAMSULOSIN HCL 0.4 MG CAP.SR.24H PO SCH (09:47)
[2020-02-15] MEDS: LEVOFLOXACIN 500 MG TABLET PO SCH (09:47)
[2020-02-15] MEDS: FINASTERIDE 5 MG TABLET PO SCH (09:47)
--- NOTE | 2020-02-15 20:59 | PDOC PROGRESS REPORT ---
Subjective Date:: 02/15/20 Subjective:: Patient seen by the bedside, she has baseline confusion Reason For Visit: PNEUMONIA Physical Exam Vital Signs: Temp Pulse Resp BP Pulse Ox 97.5 F 98 20 90/59 L 100 02/15/20 15:15 02/15/20 15:15 02/15/20 15:15 02/15/20 15:15 02/15/20 15:15 Intake & Output 02/14/20 02/15/20 02/16/20 06:59 06:59 06:59 Intake Total 1360 2240 1240 Balance 1360 2240 1240 Weight 63.6 kg 64.2 kg General appearance: PRESENT: no acute distress Eye exam: PRESENT: PERRLA Respiratory exam: PRESENT: clear to auscultation keegan Cardiovascular exam: PRESENT: +S1, +S2 GI/Abdominal exam: PRESENT: soft Neurological exam: PRESENT: alert Results Laboratory Results: 02/15/20 04:11 02/15/20 04:11 02/15/20 02/15/20 04:11 04:11 WBC Cancelled RBC Cancelled Hgb Cancelled Hct Cancelled MCV Cancelled MCH Cancelled MCHC Cancelled RDW Cancelled Plt Count Cancelled Seg Neutrophils % Cancelled Sodium 131.6 L Potassium 3.7 Chloride 100 Carbon Dioxide 28 Anion Gap 4 L BUN 6 L Creatinine 0.52 Est GFR ( Amer) > 60 Glucose 225 H Calcium 10.0 Total Bilirubin 0.4 AST 20 Alkaline Phosphatase 81 Total Protein 5.5 L Albumin 2.5 L 02/04/20 02/04/20 02/04/20 01:35 10:10 10:10 Creatine Kinase < 20 L CK-MB (CK-2) 0.51 Troponin I < 0.012 < 0.012 02/04/20 02/04/20 02/04/20 16:22 16:22 22:11 Creatine Kinase < 20 L 30 L CK-MB (CK-2) 0.81 Troponin I < 0.012 02/04/20 22:11 Creatine Kinase CK-MB (CK-2) 0.89 Troponin I < 0.012 Impressions: Chest CT 02/04/20 00:00 IMPRESSION: Known right lower lobe and right hilar masses. Patchy bilateral ground-glass opacities which could represent superimposed pneumonia or metastatic lesions. Head CT 02/04/20 02:17 IMPRESSION: Atrophy and chronic small vessel ischemic changes with no acute intracranial abnormality. Chest X-Ray 02/04/20 02:18 IMPRESSION: Worsening right basilar opacity likely worsening pneumonia, this may be postobstructive pneumonia in this patient with prior CT showing right lower lobe mass. Please correlate with patient's prior history and any prior tissue diagnosis. Assessment & Plan - Diagnosis (1) Pneumonia Qualifiers: Pneumonia type: due to unspecified organism Laterality: bilateral Lung location: lower lobe of lung Qualified Code(s): J18.9 - Pneumonia, unspecified organism Is this a current diagnosis for this admission?: Yes (2) Metabolic encephalopathy Is this a current diagnosis for this admission?: Yes (3) Malignant neoplasm of unspecified part of right bronchus or lung Is this a current diagnosis for this admission?: Yes (4) Type 2 diabetes mellitus with diabetic polyneuropathy Qualifiers: Diabetes mellitus extermination inspector insulin use: with custodial use Qualified Code(s): E11.42 - Type 2 diabetes mellitus with diabetic polyneuropathy; Z79.4 - penit[facility]iary (current) use of insulin Is this a current diagnosis for this admission?: Yes - Time Time Spent with patient: 15-24 minutes Level of Care: MEDICAL Medications reviewed and adjusted accordingly: Yes Anticipated discharge: Hospice - Plan Summary Plan Summary: Discharge planning [facility], I signed [place]-2 form today
[2020-02-16] MEDS: HEPARIN SOD (PORCINE) 5,000 UNIT/ML 1 ML VIAL SUBCUT SCH ×3 (05:20→20:59)
[2020-02-16] MEDS: RINGERS SOLUTION,LACTATED 1,000 ML IV PRN ×2 (05:20→15:33)
[2020-02-16] MEDS: FINASTERIDE 5 MG TABLET PO SCH (09:26)
[2020-02-16] MEDS: LEVOFLOXACIN 500 MG TABLET PO SCH (09:26)
[2020-02-16] MEDS: TAMSULOSIN HCL 0.4 MG CAP.SR.24H PO SCH (09:26)
[2020-02-16 15:25] LABS: HEMATOCRIT 32.7 % (37.9-51.0); MEAN CORPUSCULAR HEMOGLOBIN 28.9 pg (27.0-33.4); MEAN CORPUSCULAR HGB CONC 33.8 g/dL (32.0-36.0); RED BLOOD COUNT 3.82 10^6/uL (4.35-5.55); RED CELL DISTRIBUTION WIDTH 15.1 % (11.5-14.0); WHITE BLOOD COUNT 9.1 10^3/uL (4.0-10.5)
[2020-02-16 15:26] LABS: MEAN CORPUSCULAR VOLUME 86 fl (80-97)
[2020-02-16 15:27] LABS: ABSOLUTE MONOCYTES # (MANUAL) 0.8 10^3/uL (0.1-1.4); ANISOCYTOSIS SLIGHT; BAND NEUTROPHILS % (MANUAL) 2 % (3-5); BASOPHILS % (MANUAL) 0 % (0-2); EOSINOPHILS % (MANUAL) 1 % (0-6); LYMPHOCYTES % (MANUAL) 11 % (13-45); METAMYELOCYTES % (MANUAL) 1 % (0-1); MONOCYTES % (MANUAL) 9 % (3-13); PLATELET CLUMPS PRESENT; PLATELET COMMENT ADEQUATE; PLATELET COUNT 271 10^3/uL (150-450); POLYCHROMASIA SLIGHT; SEGMENTED NEUTROPHILS % (MAN) 76 % (42-78); TOTAL CELLS COUNTED 100
--- NOTE | 2020-02-16 21:26 | PDOC PROGRESS REPORT ---
Subjective Date:: 02/16/20 Subjective:: Patient seen by the bedside,discharge planning making arrangement for transfer t o the [facility] Reason For Visit: PNEUMONIA Physical Exam Vital Signs: Temp Pulse Resp BP Pulse Ox 98.0 F 98 18 102/59 L 98 02/16/20 20:36 02/16/20 20:36 02/16/20 20:36 02/16/20 20:36 02/16/20 20:36 Intake & Output 02/15/20 02/16/20 02/17/20 06:59 06:59 06:59 Intake Total 2240 2240 1240 Balance 2240 2240 1240 Weight 64.2 kg 60.2 kg General appearance: PRESENT: no acute distress Eye exam: PRESENT: PERRLA GI/Abdominal exam: PRESENT: soft Results Laboratory Results: 02/15/20 04:11 02/15/20 04:11 02/15/20 04:11 WBC 9.1 RBC 3.82 L Hgb 11.0 L Hct 32.7 L MCV 86 D MCH 28.9 MCHC 33.8 RDW 15.1 H Plt Count 271 Seg Neutrophils % Not Reportable 02/04/20 02/04/20 02/04/20 01:35 10:10 10:10 Creatine Kinase < 20 L CK-MB (CK-2) 0.51 Troponin I < 0.012 < 0.012 02/04/20 02/04/20 02/04/20 16:22 16:22 22:11 Creatine Kinase < 20 L 30 L CK-MB (CK-2) 0.81 Troponin I < 0.012 02/04/20 22:11 Creatine Kinase CK-MB (CK-2) 0.89 Troponin I < 0.012 Impressions: Chest CT 02/04/20 00:00 IMPRESSION: Known right lower lobe and right hilar masses. Patchy bilateral ground-glass opacities which could represent superimposed pneumonia or metastatic lesions. Head CT 02/04/20 02:17 IMPRESSION: Atrophy and chronic small vessel ischemic changes with no acute intracranial abnormality. Chest X-Ray 02/04/20 02:18 IMPRESSION: Worsening right basilar opacity likely worsening pneumonia, this may be postobstructive pneumonia in this patient with prior CT showing right lower lobe mass. Please correlate with patient's prior history and any prior tissue diagnosis. Assessment & Plan - Diagnosis (1) Pneumonia Qualifiers: Pneumonia type: due to unspecified organism Laterality: bilateral Lung location: lower lobe of lung Qualified Code(s): J18.9 - Pneumonia, unspecified organism Is this a current diagnosis for this admission?: Yes (2) Metabolic encephalopathy Is this a current diagnosis for this admission?: Yes (3) Malignant neoplasm of unspecified part of right bronchus or lung Is this a current diagnosis for this admission?: Yes (4) Type 2 diabetes mellitus with diabetic polyneuropathy Qualifiers: Diabetes mellitus half-way insulin use: with half-way use Qualified Code(s): E11.42 - Type 2 diabetes mellitus with diabetic polyneuropathy; Z79.4 - rn long term care (current) use of insulin Is this a current diagnosis for this admission?: Yes - Time Time Spent with patient: 15-24 minutes Level of Care: MEDICAL Medications reviewed and adjusted accordingly: Yes Anticipated discharge: Home
[2020-02-17] MEDS: HEPARIN SOD (PORCINE) 5,000 UNIT/ML 1 ML VIAL SUBCUT SCH ×3 (06:23→21:05)
[2020-02-17] MEDS: RINGERS SOLUTION,LACTATED 1,000 ML IV PRN ×2 (06:24→19:23)
[2020-02-17] MEDS: LEVOFLOXACIN 500 MG TABLET PO SCH (12:59)
[2020-02-17] MEDS: TAMSULOSIN HCL 0.4 MG CAP.SR.24H PO SCH (12:59)
[2020-02-17] MEDS: FINASTERIDE 5 MG TABLET PO SCH (12:59)
--- NOTE | 2020-02-17 20:14 | PDOC PROGRESS REPORT ---
Subjective Date:: 02/17/20 Subjective:: Patient seen by the bedside,discharge planning [facility], I saw patient today very confused Reason For Visit: PNEUMONIA Physical Exam Vital Signs: Temp Pulse Resp BP Pulse Ox 97.3 F 76 15 98/51 L 93 02/17/20 15:14 02/17/20 15:14 02/17/20 15:14 02/17/20 15:14 02/17/20 15:14 Intake & Output 02/16/20 02/17/20 02/18/20 06:59 06:59 06:59 Intake Total 2240 2240 1000 Balance 2240 2240 1000 Weight 60.2 kg 60.2 kg 60.2 kg General appearance: PRESENT: other - Patient is alert but confused Respiratory exam: PRESENT: clear to auscultation keegan Cardiovascular exam: PRESENT: +S1, +S2 Results Laboratory Results: 02/15/20 04:11 02/15/20 04:11 02/04/20 02/04/20 02/04/20 01:35 10:10 10:10 Creatine Kinase < 20 L CK-MB (CK-2) 0.51 Troponin I < 0.012 < 0.012 02/04/20 02/04/20 02/04/20 16:22 16:22 22:11 Creatine Kinase < 20 L 30 L CK-MB (CK-2) 0.81 Troponin I < 0.012 02/04/20 22:11 Creatine Kinase CK-MB (CK-2) 0.89 Troponin I < 0.012 Impressions: Chest CT 02/04/20 00:00 IMPRESSION: Known right lower lobe and right hilar masses. Patchy bilateral ground-glass opacities which could represent superimposed pneumonia or metastatic lesions. Head CT 02/04/20 02:17 IMPRESSION: Atrophy and chronic small vessel ischemic changes with no acute intracranial abnormality. Chest X-Ray 02/04/20 02:18 IMPRESSION: Worsening right basilar opacity likely worsening pneumonia, this may be postobstructive pneumonia in this patient with prior CT showing right lower lobe mass. Please correlate with patient's prior history and any prior tissue diagnosis. Assessment & Plan - Diagnosis (1) Pneumonia Qualifiers: Pneumonia type: due to unspecified organism Laterality: bilateral Lung location: lower lobe of lung Qualified Code(s): J18.9 - Pneumonia, unspecified organism Is this a current diagnosis for this admission?: Yes (2) Metabolic encephalopathy Is this a current diagnosis for this admission?: Yes (3) Malignant neoplasm of unspecified part of right bronchus or lung Is this a current diagnosis for this admission?: Yes (4) Type 2 diabetes mellitus with diabetic polyneuropathy Qualifiers: Diabetes mellitus marine oil terminal superintendent insulin use: with group home use Qualified Code(s): E11.42 - Type 2 diabetes mellitus with diabetic polyneuropathy; Z79.4 - medical terminologist (current) use of insulin Is this a current diagnosis for this admission?: Yes - Time Time Spent with patient: 15-24 minutes Level of Care: MEDICAL Medications reviewed and adjusted accordingly: Yes Anticipated discharge: Home Anticipated DC Timeframe: within 72 hours
[2020-02-18] MEDS: RINGERS SOLUTION,LACTATED 1,000 ML IV PRN ×2 (06:09→13:42)
[2020-02-18] MEDS: HEPARIN SOD (PORCINE) 5,000 UNIT/ML 1 ML VIAL SUBCUT SCH ×3 (06:10→22:59)
[2020-02-18] MEDS ORDERED: NORMAL SALINE 1000 ML 1,000 ML IV PRN (08:50)
--- NOTE | 2020-02-18 11:45 | EKG REPORT ---
SEVERITY:- ABNORMAL ECG - SINUS TACHYCARDIA LOW VOLTAGE THROUGHOUT BORDERLINE T ABNORMALITIES, ANT-LAT LEADS : Confirmed by: Britton Tony MD 18-Feb-2020 11:45:11
[2020-02-18] MEDS: LEVOFLOXACIN 500 MG TABLET PO SCH (13:38)
[2020-02-18] MEDS: FINASTERIDE 5 MG TABLET PO SCH (13:38)
--- NOTE | 2020-02-18 17:21 | PDOC PROGRESS REPORT ---
Subjective Date:: 02/18/20 Subjective:: Patient awaiting hospice placement, no need for further intervention in this patient he has terminal cancer, no plan for treatment Reason For Visit: PNEUMONIA Physical Exam Vital Signs: Temp Pulse Resp BP Pulse Ox 97.8 F 104 H 15 116/46 L 98 02/18/20 15:49 02/18/20 15:49 02/18/20 15:49 02/18/20 15:49 02/18/20 15:49 Intake & Output 02/17/20 02/18/20 02/19/20 06:59 06:59 06:59 Intake Total 2240 1999 995 Balance 2240 1999 995 Weight 60.2 kg 60.4 kg Results Laboratory Results: 02/15/20 04:11 02/15/20 04:11 02/04/20 02/04/20 02/04/20 01:35 10:10 10:10 Creatine Kinase < 20 L CK-MB (CK-2) 0.51 Troponin I < 0.012 < 0.012 02/04/20 02/04/20 02/04/20 16:22 16:22 22:11 Creatine Kinase < 20 L 30 L CK-MB (CK-2) 0.81 Troponin I < 0.012 02/04/20 22:11 Creatine Kinase CK-MB (CK-2) 0.89 Troponin I < 0.012 Impressions: Chest CT 02/04/20 00:00 IMPRESSION: Known right lower lobe and right hilar masses. Patchy bilateral g round-glass opacities which could represent superimposed pneumonia or metastatic lesions. Head CT 02/04/20 02:17 IMPRESSION: Atrophy and chronic small vessel ischemic changes with no acute intracranial abnormality. Chest X-Ray 02/04/20 02:18 IMPRESSION: Worsening right basilar opacity likely worsening pneumonia, this may be postobstructive pneumonia in this patient with prior CT showing right lower lobe mass. Please correlate with patient's prior history and any prior tissue diagnosis. Assessment & Plan - Diagnosis (1) Malignant neoplasm of unspecified part of right bronchus or lung Is this a current diagnosis for this admission?: Yes (2) Pneumonia Qualifiers: Pneumonia type: due to unspecified organism Laterality: bilateral Lung location: lower lobe of lung Qualified Code(s): J18.9 - Pneumonia, unspecified organism Is this a current diagnosis for this admission?: Yes (3) Metabolic encephalopathy Is this a current diagnosis for this admission?: Yes (4) Type 2 diabetes mellitus with diabetic polyneuropathy Qualifiers: Diabetes mellitus parts counterman insulin use: with parts counterman use Qualified Code(s): E11.42 - Type 2 diabetes mellitus with diabetic polyneuropathy; Z79.4 - termite helper (current) use of insulin Is this a current diagnosis for this admission?: Yes - Time Time Spent with patient: Less than 15 minutes Level of Care: MEDICAL Medications reviewed and adjusted accordingly: Yes Anticipated discharge: Hospice Anticipated DC Timeframe: when bed available
[2020-02-18] MEDS: TAMSULOSIN HCL 0.4 MG CAP.SR.24H PO SCH (21:12)
[2020-02-19] MEDS: HEPARIN SOD (PORCINE) 5,000 UNIT/ML 1 ML VIAL SUBCUT SCH ×3 (05:26→21:40)
[2020-02-19] MEDS: RINGERS SOLUTION,LACTATED 1,000 ML IV PRN ×3 (05:41→23:31)
[2020-02-19] MEDS: LEVOFLOXACIN 500 MG TABLET PO SCH (10:38)
[2020-02-19] MEDS: TAMSULOSIN HCL 0.4 MG CAP.SR.24H PO SCH (10:38)
[2020-02-19] MEDS: FINASTERIDE 5 MG TABLET PO SCH (10:38)
--- NOTE | 2020-02-19 21:00 | PDOC PROGRESS REPORT ---
Subjective Date:: 02/19/20 Subjective:: Patient awaiting hospice placement, no need for further intervention in this patient he has terminal cancer, no plan for treatment Reason For Visit: PNEUMONIA Physical Exam Vital Signs: Temp Pulse Resp BP Pulse Ox 97.7 F 100 28 H 96/42 L 93 02/19/20 20:14 02/19/20 19:00 02/19/20 15:56 02/19/20 15:56 02/19/20 15:56 Intake & Output 02/18/20 02/19/20 02/20/20 06:59 06:59 06:59 Intake Total 1999 2235 1065 Balance 1999 2234 1065 Weight 60.4 kg 60.4 kg General appearance: PRESENT: no acute distress Results Laboratory Results: 02/15/20 04:11 02/15/20 04:11 02/04/20 02/04/20 02/04/20 01:35 10:10 10:10 Creatine Kinase < 20 L CK-MB (CK-2) 0.51 Troponin I < 0.012 < 0.012 02/04/20 02/04/20 02/04/20 16:22 16:22 22:11 Creatine Kinase < 20 L 30 L CK-MB (CK-2) 0.81 Troponin I < 0.012 02/04/20 22:11 Creatine Kinase CK-MB (CK-2) 0.89 Troponin I < 0.012 Impressions: Chest CT 02/04/20 00:00 IMPRESSION: Known right lower lobe and right hilar masses. Patchy bilateral ground-glass opacities which could represent superimposed pneumonia or metastatic lesions. Head CT 02/04/20 02:17 IMPRESSION: Atrophy and chronic small vessel ischemic changes with no acute intracranial abnormality. Chest X-Ray 02/04/20 02:18 IMPRESSION: Worsening right basilar opacity likely worsening pneumonia, this may be postobstructive pneumonia in this patient with prior CT showing right lower lobe mass. Please correlate with patient's prior history and any prior tissue diagnosis. Assessment & Plan - Diagnosis (1) Malignant neoplasm of unspecified part of right bronchus or lung Is this a current diagnosis for this admission?: Yes (2) Pneumonia Qualifiers: Pneumonia type: due to unspecified organism Laterality: bilateral Lung location: lower lobe of lung Qualified Code(s): J18.9 - Pneumonia, unspecified organism Is this a current diagnosis for this admission?: Yes (3) Metabolic encephalopathy Is this a current diagnosis for this admission?: Yes (4) Type 2 diabetes mellitus with diabetic polyneuropathy Qualifiers: Diabetes mellitus terminal clerk insulin use: with terminal clerk use Qualified Code(s): E11.42 - Type 2 diabetes mellitus with diabetic polyneuropathy; Z79.4 - senior living (current) use of insulin Is this a current diagnosis for this admission?: Yes - Time Time Spent with patient: Less than 15 minutes Level of Care: MEDICAL Medications reviewed and adjusted accordingly: Yes Anticipated discharge: Hospice Anticipated DC Timeframe: when bed available
[2020-02-20] MEDS: HEPARIN SOD (PORCINE) 5,000 UNIT/ML 1 ML VIAL SUBCUT SCH ×3 (05:34→21:07)
[2020-02-20] MEDS: TAMSULOSIN HCL 0.4 MG CAP.SR.24H PO SCH (09:07)
[2020-02-20] MEDS: RINGERS SOLUTION,LACTATED 1,000 ML IV PRN ×2 (09:10→20:20)
[2020-02-20] MEDS: FINASTERIDE 5 MG TABLET PO SCH (09:10)
--- NOTE | 2020-02-20 18:01 | PDOC PROGRESS REPORT ---
Subjective Date:: 02/20/20 Subjective:: Patient seen by the bedside, condition about the same Reason For Visit: PNEUMONIA Physical Exam Vital Signs: Temp Pulse Resp BP Pulse Ox 97.3 F 117 H 20 102/49 L 100 02/20/20 11:51 02/20/20 14:00 02/20/20 11:51 02/20/20 11:51 02/20/20 11:51 Intake & Output 02/19/20 02/20/20 02/21/20 06:59 06:59 06:59 Intake Total 2235 2115 1525 Balance 2235 2115 1525 Weight 60.4 kg 60.4 kg Results Laboratory Results: 02/15/20 04:11 02/15/20 04:11 02/04/20 02/04/20 02/04/20 01:35 10:10 10:10 Creatine Kinase < 20 L CK-MB (CK-2) 0.51 Troponin I < 0.012 < 0.012 02/04/20 02/04/20 02/04/20 16:22 16:22 22:11 Creatine Kinase < 20 L 30 L CK-MB (CK-2) 0.81 Troponin I < 0.012 02/04/20 22:11 Creatine Kinase CK-MB (CK-2) 0.89 Troponin I < 0.012 Impressions: Chest CT 02/04/20 00:00 IMPRESSION: Known right lower lobe and right hilar masses. Patchy bilateral ground-glass opacities which could represent superimposed pneumonia or meta static lesions. Head CT 02/04/20 02:17 IMPRESSION: Atrophy and chronic small vessel ischemic changes with no acute intracranial abnormality. Chest X-Ray 02/04/20 02:18 IMPRESSION: Worsening right basilar opacity likely worsening pneumonia, this may be postobstructive pneumonia in this patient with prior CT showing right lower lobe mass. Please correlate with patient's prior history and any prior tissue diagnosis. Assessment & Plan - Diagnosis (1) Malignant neoplasm of unspecified part of right bronchus or lung Is this a current diagnosis for this admission?: Yes (2) Pneumonia Qualifiers: Pneumonia type: due to unspecified organism Laterality: bilateral Lung location: lower lobe of lung Qualified Code(s): J18.9 - Pneumonia, unspecified organism Is this a current diagnosis for this admission?: Yes (3) Metabolic encephalopathy Is this a current diagnosis for this admission?: Yes (4) Type 2 diabetes mellitus with diabetic polyneuropathy Qualifiers: Diabetes mellitus exterminator helper insulin use: with longterm use Qualified Code(s): E11.42 - Type 2 diabetes mellitus with diabetic polyneuropathy; Z79.4 - exterminator helper (current) use of insulin Is this a current diagnosis for this admission?: Yes - Time Time Spent with patient: Less than 15 minutes Level of Care: MEDICAL Anticipated discharge: Hospice Anticipated DC Timeframe: when bed available
[2020-02-21] MEDS: HEPARIN SOD (PORCINE) 5,000 UNIT/ML 1 ML VIAL SUBCUT SCH ×3 (05:07→21:30)
[2020-02-21] MEDS: RINGERS SOLUTION,LACTATED 1,000 ML IV PRN ×2 (06:25→15:50)
[2020-02-21] MEDS: TAMSULOSIN HCL 0.4 MG CAP.SR.24H PO SCH (12:50)
[2020-02-21] MEDS: FINASTERIDE 5 MG TABLET PO SCH (12:53)
--- NOTE | 2020-02-21 17:56 | PDOC PROGRESS REPORT ---
Subjective Date:: 02/21/20 Subjective:: Patient's condition is about the same, is waiting for hospice placement in the [facility], discharge planning is working on it Reason For Visit: PNEUMONIA Physical Exam Vital Signs: Temp Pulse Resp BP Pulse Ox 97.6 F 120 H 18 94/62 L 99 02/21/20 12:00 02/21/20 14:00 02/21/20 12:00 02/21/20 12:00 02/21/20 12:00 Intake & Output 02/20/20 02/21/20 02/22/20 06:59 06:59 06:59 Intake Total 2115 3695 1062 Balance 2115 3695 1062 Weight 60.4 kg 60.4 kg Results Laboratory Results: 02/15/20 04:11 02/15/20 04:11 02/04/20 02/04/20 02/04/20 01:35 10:10 10:10 Creatine Kinase < 20 L CK-MB (CK-2) 0.51 Troponin I < 0.012 < 0.012 02/04/20 02/04/20 02/04/20 16:22 16:22 22:11 Creatine Kinase < 20 L 30 L CK-MB (CK-2) 0.81 Troponin I < 0.012 02/04/20 22:11 Creatine Kinase CK-MB (CK-2) 0.89 Troponin I < 0.012 Impressions: Chest CT 02/04/20 00:00 IMPRESSION: Known right lower lobe and right hilar masses. Patchy bilateral ground-glass opacities which could represent superimposed pneumonia or metastatic lesions. Head CT 02/04/20 02:17 IMPRESSION: Atrophy and chronic small vessel ischemic changes with no acute intracranial abnormality. Chest X-Ray 02/04/20 02:18 IMPRESSION: Worsening right basilar opacity likely worsening pneumonia, this may be postobstructive pneumonia in this patient with prior CT showing right lower lobe mass. Please correlate with patient's prior history and any prior tissue diagnosis. Assessment & Plan - Diagnosis (1) Malignant neoplasm of unspecified part of right bronchus or lung Is this a current diagnosis for this admission?: Yes (2) Pneumonia Qualifiers: Pneumonia type: due to unspecified organism Laterality: bilateral Lung location: lower lobe of lung Qualified Code(s): J18.9 - Pneumonia, unspecified organism Is this a current diagnosis for this admission?: Yes (3) Metabolic encephalopathy Is this a current diagnosis for this admission?: Yes (4) Type 2 diabetes mellitus with diabetic polyneuropathy Qualifiers: Diabetes mellitus skilled nursing insulin use: with skilled nursing use Qualified Code(s): E11.42 - Type 2 diabetes mellitus with diabetic polyneuropathy; Z79.4 - snf (current) use of insulin Is this a current diagnosis for this admission?: Yes - Time Time Spent with patient: Less than 15 minutes Level of Care: MEDICAL Medications reviewed and adjusted accordingly: Yes Anticipated discharge: Hospice Anticipated DC Timeframe: when bed available
[2020-02-22] MEDS: RINGERS SOLUTION,LACTATED 1,000 ML IV PRN ×3 (02:11→23:06)
[2020-02-22] MEDS: HEPARIN SOD (PORCINE) 5,000 UNIT/ML 1 ML VIAL SUBCUT SCH ×3 (05:05→22:11)
[2020-02-22] MEDS: FINASTERIDE 5 MG TABLET PO SCH (09:31)
[2020-02-22] MEDS: TAMSULOSIN HCL 0.4 MG CAP.SR.24H PO SCH (09:31)
--- NOTE | 2020-02-22 20:26 | PDOC PROGRESS REPORT ---
Subjective Date:: 02/22/20 Subjective:: Patient's condition is about the same, is waiting for hospice placement in the [facility], discharge planning is working on it Reason For Visit: PNEUMONIA Physical Exam Vital Signs: Temp Pulse Resp BP Pulse Ox 97.2 F 112 H 17 110/68 99 02/22/20 15:49 02/22/20 19:00 02/22/20 15:49 02/22/20 15:49 02/22/20 15:49 Intake & Output 02/21/20 02/22/20 02/23/20 06:59 06:59 06:59 Intake Total 3695 2 1000 Balance 3695 2061 1000 Weight 60.4 kg 60.4 kg Results Laboratory Results: 02/15/20 04:11 02/15/20 04:11 02/04/20 02/04/20 02/04/20 01:35 10:10 10:10 Creatine Kinase < 20 L CK-MB (CK-2) 0.51 Troponin I < 0.012 < 0.012 02/04/20 02/04/20 02/04/20 16:22 16:22 22:11 Creatine Kinase < 20 L 30 L CK-MB (CK-2) 0.81 Troponin I < 0.012 02/04/20 22:11 Creatine Kinase CK-MB (CK-2) 0.89 Troponin I < 0.012 Impressions: Chest CT 02/04/20 00:00 IMPRESSION: Known right lower lobe and right hilar masses. Patchy bilateral ground-glass opacities which could represent superimposed pneumonia or metastatic lesions. Head CT 02/04/20 02:17 IMPRESSION: Atrophy and chronic small vessel ischemic changes with no acute intracranial abnormality. Chest X-Ray 02/04/20 02:18 IMPRESSION: Worsening right basilar opacity likely worsening pneumonia, this may be postobstructive pneumonia in this patient with prior CT showing right lower lobe mass. Please correlate with patient's prior history and any prior tissue diagnosis. Assessment & Plan - Diagnosis (1) Malignant neoplasm of unspecified part of right bronchus or lung Is this a current diagnosis for this admission?: Yes (2) Pneumonia Qualifiers: Pneumonia type: due to unspecified organism Laterality: bilateral Lung location: lower lobe of lung Qualified Code(s): J18.9 - Pneumonia, unspecified organism Is this a current diagnosis for this admission?: Yes (3) Metabolic encephalopathy Is this a current diagnosis for this admission?: Yes (4) Type 2 diabetes mellitus with diabetic polyneuropathy Qualifiers: Diabetes mellitus prison insulin use: with prison use Qualified Code(s): E11.42 - Type 2 diabetes mellitus with diabetic polyneuropathy; Z79.4 - exterminator termite (current) use of insulin Is this a current diagnosis for this admission?: Yes - Time Time Spent with patient: Less than 15 minutes Level of Care: MEDICAL Medications reviewed and adjusted accordingly: Yes Anticipated discharge: Hospice Anticipated DC Timeframe: when bed available
[2020-02-23] MEDS: HEPARIN SOD (PORCINE) 5,000 UNIT/ML 1 ML VIAL SUBCUT SCH ×3 (05:38→22:39)
[2020-02-23] MEDS: FINASTERIDE 5 MG TABLET PO SCH (09:24)
[2020-02-23] MEDS: TAMSULOSIN HCL 0.4 MG CAP.SR.24H PO SCH (09:24)
[2020-02-23] MEDS ORDERED: CITALOPRAM HYDROBROMIDE 40 MG PO SCH (13:00)
[2020-02-23] MEDS: ASCORBIC ACID 500 MG TABLET PO SCH ×2 (13:44→17:12)
[2020-02-23] MEDS: CHOLECALCIFEROL (D3) 1,000 UNIT (25 MCG) TABLET PO SCH (13:44)
[2020-02-23] MEDS: CITALOPRAM HYDROBROMIDE 20 MG TABLET PO SCH (13:44)
[2020-02-23] MEDS: CLOPIDOGREL BISULFATE 75 MG TABLET PO SCH (13:44)
[2020-02-23] MEDS: RINGERS SOLUTION,LACTATED 1,000 ML IV PRN (19:32)
--- NOTE | 2020-02-23 21:24 | PDOC PROGRESS REPORT ---
Subjective Date:: 02/23/20 Subjective:: Patient's condition is about the same, is waiting for hospice placement in the [facility], discharge planning is working on it Reason For Visit: PNEUMONIA Physical Exam Vital Signs: Temp Pulse Resp BP Pulse Ox 97.8 F 106 H 15 90/50 L 98 02/23/20 16:00 02/23/20 16:00 02/23/20 16:00 02/23/20 16:00 02/23/20 16:00 Intake & Output 02/22/20 02/23/20 02/24/20 06:59 06:59 06:59 Intake Total 2061 1999 1499 Balance 2061 1999 1500 Weight 60.4 kg 69.6 kg 69.6 kg Results Laboratory Results: 02/15/20 04:11 02/15/20 04:11 02/04/20 02/04/20 02/04/20 01:35 10:10 10:10 Creatine Kinase < 20 L CK-MB (CK-2) 0.51 Troponin I < 0.012 < 0.012 02/04/20 02/04/20 02/04/20 16:22 16:22 22:11 Creatine Kinase < 20 L 30 L CK-MB (CK-2) 0.81 Troponin I < 0.012 02/04/20 22:11 Creatine Kinase CK-MB (CK-2) 0.89 Troponin I < 0.012 Impressions: Chest CT 02/04/20 00:00 IMPRESSION: Known right lower lobe and right hilar masses. Patchy bilateral ground-glass opacities which could represent superimposed pneumonia or metastatic lesions. Head CT 02/04/20 02:17 IMPRESSION: Atrophy and chronic small vessel ischemic changes with no acute intracranial abnormality. Chest X-Ray 02/04/20 02:18 IMPRESSION: Worsening right basilar opacity likely worsening pneumonia, this may be postobstructive pneumonia in this patient with prior CT showing right lower lobe mass. Please correlate with patient's prior history and any prior tissue diagnosis. Assessment & Plan - Diagnosis (1) Malignant neoplasm of unspecified part of right bronchus or lung Is this a current diagnosis for this admission?: Yes (2) Pneumonia Qualifiers: Pneumonia type: due to unspecified organism Laterality: bilateral Lung location: lower lobe of lung Qualified Code(s): J18.9 - Pneumonia, unspecified organism Is this a current diagnosis for this admission?: Yes (3) Metabolic encephalopathy Is this a current diagnosis for this admission?: Yes (4) Type 2 diabetes mellitus with diabetic polyneuropathy Qualifiers: Diabetes mellitus alf insulin use: with alf use Qualified Code(s): E11.42 - Type 2 diabetes mellitus with diabetic polyneuropathy; Z79.4 - correction (current) use of insulin Is this a current diagnosis for this admission?: Yes - Time Time Spent with patient: Less than 15 minutes Level of Care: MEDICAL Medications reviewed and adjusted accordingly: Yes Anticipated discharge: Home
[2020-02-24] MEDS: RINGERS SOLUTION,LACTATED 1,000 ML IV PRN ×2 (05:09→16:35)
[2020-02-24] MEDS: HEPARIN SOD (PORCINE) 5,000 UNIT/ML 1 ML VIAL SUBCUT SCH ×3 (05:09→22:01)
[2020-02-24] MEDS: FINASTERIDE 5 MG TABLET PO SCH (11:27)
[2020-02-24] MEDS: CLOPIDOGREL BISULFATE 75 MG TABLET PO SCH (11:27)
[2020-02-24] MEDS: CHOLECALCIFEROL (D3) 1,000 UNIT (25 MCG) TABLET PO SCH (11:27)
[2020-02-24] MEDS: ASCORBIC ACID 500 MG TABLET PO SCH ×2 (11:27→17:08)
[2020-02-24] MEDS: TAMSULOSIN HCL 0.4 MG CAP.SR.24H PO SCH (11:27)
[2020-02-24] MEDS: CITALOPRAM HYDROBROMIDE 20 MG TABLET PO SCH (11:28)
--- NOTE | 2020-02-24 17:15 | PDOC PROGRESS REPORT ---
Subjective Date:: 02/24/20 Subjective:: Patient's condition is about the same, is waiting for hospice placement in the [facility], discharge planning is working on it Reason For Visit: PNEUMONIA Physical Exam Vital Signs: Temp Pulse Resp BP Pulse Ox 97.9 F 94 16 111/56 L 96 02/24/20 14:58 02/24/20 14:58 02/24/20 14:58 02/24/20 14:58 02/24/20 14:58 Intake & Output 02/23/20 02/24/20 02/25/20 06:59 06:59 06:59 Intake Total 1999 2462 1120 Balance 1999 2462 1120 Weight 69.6 kg 69.2 kg Results Laboratory Results: 02/15/20 04:11 02/15/20 04:11 02/04/20 02/04/20 02/04/20 01:35 10:10 10:10 Creatine Kinase < 20 L CK-MB (CK-2) 0.51 Troponin I < 0.012 < 0.012 02/04/20 02/04/20 02/04/20 16:22 16:22 22:11 Creatine Kinase < 20 L 30 L CK-MB (CK-2) 0.81 Troponin I < 0.012 02/04/20 22:11 Creatine Kinase CK-MB (CK-2) 0.89 Troponin I < 0.012 Impressions: Chest CT 02/04/20 00:00 IMPRESSION: Known right lower lobe and right hilar masses. Patchy bilateral ground-glass opacities which could represent superimposed pneumonia or metastatic lesions. Head CT 02/04/20 02:17 IMPRESSION: Atrophy and chronic small vessel ischemic changes with no acute intracranial abnormality. Chest X-Ray 02/04/20 02:18 IMPRESSION: Worsening right basilar opacity likely worsening pneumonia, this may be postobstructive pneumonia in this patient with prior CT showing right lower lobe mass. Please correlate with patient's prior history and any prior tissue diagnosis. Assessment & Plan - Diagnosis (1) Malignant neoplasm of unspecified part of right bronchus or lung Is this a current diagnosis for this admission?: Yes (2) Pneumonia Qualifiers: Pneumonia type: due to unspecified organism Laterality: bilateral Lung location: lower lobe of lung Qualified Code(s): J18.9 - Pneumonia, unspecified organism Is this a current diagnosis for this admission?: Yes (3) Metabolic encephalopathy Is this a current diagnosis for this admission?: Yes (4) Type 2 diabetes mellitus with diabetic polyneuropathy Qualifiers: Diabetes mellitus manager long term care insulin use: with jail use Qualified Code(s): E11.42 - Type 2 diabetes mellitus with diabetic polyneuropathy; Z79.4 - terminal superintendent (current) use of insulin Is this a current diagnosis for this admission?: Yes - Time Time Spent with patient: Less than 15 minutes Level of Care: MEDICAL Medications reviewed and adjusted accordingly: Yes Anticipated discharge: Hospice Anticipated DC Timeframe: Other
[2020-02-25] MEDS: HEPARIN SOD (PORCINE) 5,000 UNIT/ML 1 ML VIAL SUBCUT SCH ×3 (05:21→21:58)
[2020-02-25] MEDS: RINGERS SOLUTION,LACTATED 1,000 ML IV PRN ×2 (05:23→15:00)
[2020-02-25] MEDS: CITALOPRAM HYDROBROMIDE 20 MG TABLET PO SCH (10:30)
[2020-02-25] MEDS: ASCORBIC ACID 500 MG TABLET PO SCH ×2 (10:30→17:00)
[2020-02-25] MEDS: TAMSULOSIN HCL 0.4 MG CAP.SR.24H PO SCH (10:30)
[2020-02-25] MEDS: CHOLECALCIFEROL (D3) 1,000 UNIT (25 MCG) TABLET PO SCH (10:31)
[2020-02-25] MEDS: CLOPIDOGREL BISULFATE 75 MG TABLET PO SCH (10:31)
[2020-02-25] MEDS: FINASTERIDE 5 MG TABLET PO SCH (10:31)
--- NOTE | 2020-02-25 20:52 | PDOC TRANSFER SUMMARY ---
Impression - Admit/DC Date/PCP Admission Date/Primary Care Provider: 02/04/20 07:23 MARLEN DENTON MD Discharge Date: 02/26/20 - Discharge Diagnosis (1) Malignant neoplasm of unspecified part of right bronchus or lung Is this a current diagnosis for this admission?: Yes (2) Pneumonia Is this a current diagnosis for this admission?: Yes (3) Metabolic encephalopathy Is this a current diagnosis for this admission?: Yes (4) Type 2 diabetes mellitus with diabetic polyneuropathy Is this a current diagnosis for this admission?: Yes - Additional Information Resuscitation Status: Do Not Resuscitate Referrals: PASCUAL GUTIERREZ MD [ACTIVE STAFF] - Home Medications: Citalopram Hydrobromide [Celexa 40 mg Tablet] 40 mg PO DAILY 07/16/12 Tamsulosin HCl [Flomax] 0.4 mg PO DAILY 08/03/13 Finasteride [Proscar 5 mg Tablet] 5 mg PO DAILY 07/10/19 Ascorbic Acid [Vitamin C 500 mg Tablet] 500 mg PO BID tablet 12/24/19 Cholecalciferol (Vitamin D3) [Vitamin D3 1000 Unit Tablet] 2,000 unit PO DAILY tablet 12/24/19 Insulin Lispro [Humalog Insulin (Lispro) 100 unit/mL] 0 - 12 unit SUBCUT ACHS unit 12/24/19 Zinc Sulfate [Zinc-220 Capsule] 220 mg PO DAILY capsule 12/24/19 Insulin Glargine,Hum.rec.anlog [Lantus Insulin 100 Unit/1 ml 10 ml] 20 unit SUBCUT QHS 02/04/20 Oxycodone HCl/Acetaminophen [Percocet 10-325 mg Tablet] 1 each PO Q4HP PRN 02/04/20 Ipratropium/Albuterol Sulfate [Duoneb 3 ml Ampul] 3 ml NEB RTQ3HP PRN vial.neb 02/25/20 History of Present Illiness History of Present Illness: CORA GARCIA SR is a 84 year old male, [facility] to [facility] room for evaluation of altered mental status, patient is essentially not responding to verbal commands. He was admitted in this hospital on December 21, 2019 for evaluation of adult failure to thrive, fatigue, not acting right, at that time initially chest x-ray that was done suggested pneumonia subsequent CT angiogram of the chest that was done demonstrated worsening lung cancer in the right lower lobe,Patient with poor function, he was referred to the [facility] for physical therapy and rehabilitation but if anything his condition has worsened. In the emergency room he had CT of the head demonstrated generalized cerebral atrophy, there is low density in the periventricular white matter consistent with chronic small vessel ischemic changes there is no hydrocephalus, there is no hemorrhage there is no mass or mass-effect or midline shift.When I saw patient on the floor he was virtually stuporous, CT chest with contrast was obtained demonstrated right hilar and right posterior right lower lobe masses unchanged, there are several new small foci of groundglass attenuation in both upper lobes largest about 8 mm in the left upper lobe there is no effusion ,could not completely rule out pneumonia.. Patient with poor function with worsening clinical condition in his present condition is not a candidate for chemotherapy or radiation therapy, we need to discuss plan of care with family going forward ,hospice could be an option at this time Hospital Course Hospital Course: Patient was admitted for the management of pneumonia, management neoplasm of the lung. He was treated with IV antibiotic, he was seen in consultation by oncology, patient with very poor performance, not a candidate for chemotherapy, radiation therapy, or surgery. He already received chemotherapy and Radiation therapy,Despite the intervention the cancer continues to grow bigger.Patient's care was transitioned to hospice, discharge planning was consulted to arrange for hospice care, [facility], [facility] the application was just approved the last 3 days and he just had placement for [facility] the plan is to transfer to [facility] essentially for hospice care. Physical Exam Vital Signs: Temp Pulse Resp BP Pulse Ox 97.9 F 92 15 103/49 L 98 02/25/20 19:58 02/25/20 16:00 02/25/20 16:00 02/25/20 16:00 02/25/20 16:00 Intake & Output 02/24/20 02/25/20 02/26/20 06:59 06:59 06:59 Intake Total 2462 2380 1462 Balance 2462 2380 1462 Weight 69.2 kg 69.2 kg General appearance: PRESENT: no acute distress Eye exam: PRESENT: PERRLA Respiratory exam: PRESENT: clear to auscultation keegan Cardiovascular exam: PRESENT: +S1, +S2 GI/Abdominal exam: PRESENT: soft Neurological exam: PRESENT: alert Results Laboratory Results: WBC 9.1 10^3/uL (4.0-10.5) 02/15/20 04:11 RBC 3.82 10^6/uL (4.35-5.55) L 02/15/20 04:11 Hgb 11.0 g/dL (13.5-17.0) L 02/15/20 04:11 Hct 32.7 % (37.9-51.0) L 02/15/20 04:11 MCV 86 fl (80-97) D 02/15/20 04:11 MCH 28.9 pg (27.0-33.4) 02/15/20 04:11 MCHC 33.8 g/dL (32.0-36.0) 02/15/20 04:11 RDW 15.1 % (11.5-14.0) H 02/15/20 04:11 Plt Count 271 10^3/uL (150-450) 02/15/20 04:11 Lymph % (Auto) Not Reportable 02/15/20 04:11 [place] % (Auto) Not Reportable 02/15/20 04:11 Eos % (Auto) Not Reportable 02/15/20 04:11 Baso % (Auto) Not Reportable 02/15/20 04:11 Absolute Neuts (auto) Not Reportable 02/15/20 04:11 Absolute Lymphs (auto) Not Reportable 02/15/20 04:11 Absolute Monos (auto) Not Reportable 02/15/20 04:11 Absolute Eos (auto) Not Reportable 02/15/20 04:11 Absolute Basos (auto) Not Reportable 02/15/20 04:11 Total Counted 100 02/15/20 04:11 Seg Neutrophils % Not Reportable 02/15/20 04:11 Seg Neuts % (Manual) 76 % (42-78) 02/15/20 04:11 Band Neutrophils % 2 % (3-5) L 02/15/20 04:11 Lymphocytes % (Manual) 11 % (13-45) L 02/15/20 04:11 Atypical Lymphs % Cancelled 02/13/20 05:18 Monocytes % (Manual) 9 % (3-13) 02/15/20 04:11 Eosinophils % (Manual) 1 % (0-6) 02/15/20 04:11 Basophils % (Manual) 0 % (0-2) 02/15/20 04:11 Metamyelocytes % 1 % (0-1) 02/15/20 04:11 Myelocytes % Cancelled 02/13/20 05:18 Promyelocytes % Cancelled 02/13/20 05:18 Immature Leukocytes % Cancelled 02/13/20 05:18 Abs Neuts (Manual) 7.2 10^3/uL (1.7-8.2) 02/15/20 04:11 Abs Lymphs (Manual) 1.0 10^3/uL (0.5-4.7) 02/15/20 04:11 Abs Monocytes (Manual) 0.8 10^3/uL (0.1-1.4) 02/15/20 04:11 Absolute Eos (Manual) 0.1 10^3/uL (0.0-0.6) 02/15/20 04:11 Abs Basophils (Manual) 0.0 10^3/uL (0.0-0.2) 02/15/20 04:11 Nucleated RBCs Cancelled 02/13/20 05:18 Differential Comment Cancelled 02/13/20 05:18 Hypersegmented Neuts Cancelled 02/13/20 05:18 Smudge Cells Cancelled 02/13/20 05:18 Toxic Granulation Cancelled 02/13/20 05:18 Toxic Vacuolation Cancelled 02/13/20 05:18 Dohle Bodies Cancelled 02/13/20 05:18 Roberto Rods Cancelled 02/13/20 05:18 WBC Morphology Comment Cancelled 02/13/20 05:18 Platelet Estimate SITE SAFETY MANAGER 02/15/20 04:11 Clumped Platelets PRESENT 02/15/20 04:11 Large Platelets Cancelled 02/13/20 05:18 Giant Platelets Cancelled 02/13/20 05:18 Platelet Comment ADEQUATE 02/15/20 04:11 Polychromasia SLIGHT 02/15/20 04:11 Hypochromasia Cancelled 02/13/20 05:18 Poikilocytosis Cancelled 02/13/20 05:18 Basophilic Stippling Cancelled 02/13/20 05:18 Anisocytosis SLIGHT 02/15/20 04:11 Microcytosis Cancelled 02/13/20 05:18 Macrocytosis Cancelled 02/13/20 05:18 Spherocytes Cancelled 02/13/20 05:18 Pappenheimer Bodies Cancelled 02/13/20 05:18 Sickle Cells Cancelled 02/13/20 05:18 Target Cells Cancelled 02/13/20 05:18 Tear Drop Cells Cancelled 02/13/20 05:18 Ovalocytes Cancelled 02/13/20 05:18 Stomatocytes Cancelled 02/13/20 05:18 Helmet Cells Cancelled 02/13/20 05:18 [place] Bodies Cancelled 02/13/20 05:18 [place] Cells Cancelled 02/13/20 05:18 Acanthocytes (Spur) Cancelled 02/13/20 05:18 Rouleaux Cancelled 02/13/20 05:18 Schistocytes Cancelled 02/13/20 05:18 RBC Morph Comment Cancelled 02/13/20 05:18 PT 15.1 SEC (11.4-15.4) 02/04/20 10:10 INR 1.17 02/04/20 10:10 APTT 37.5 SEC (23.5-35.8) H 02/04/20 10:10 Carbonic Acid 1.03 mmol/L (1.05-1.35) L 02/04/20 09:38 HCO3/H2CO3 Ratio 27:1 02/04/20 09:38 ABG pH 7.53 (7.35-7.45) H 02/04/20 09:38 ABG pCO2 34.1 mmHg (35-45) L 02/04/20 09:38 ABG pO2 105.5 mmHg (80-100) H 02/04/20 09:38 ABG HCO3 28.0 mmol/L (20-24) H 02/04/20 09:38 ABG Total CO2 29.0 mmol/L (23-27) H 02/04/20 09:38 ABG O2 Saturation 98.4 % (94-98) H 02/04/20 09:38 ABG Base Excess 5.4 mmol/L 02/04/20 09:38 VBG pH 7.40 (7.30-7.42) 02/04/20 01:35 VBG pCO2 46.6 mmHg (35-63) 02/04/20 01:35 VBG HCO3 28.5 mmol/L (20-32) 02/04/20 01:35 VBG Base Excess 2.8 mmol/L 02/04/20 01:35 FiO2 ROOM AIR 02/04/20 09:38 Sodium 131.6 mmol/L (137-145) L 02/15/20 04:11 Potassium 3.7 mmol/L (3.6-5.0) 02/15/20 04:11 Chloride 100 mmol/L (98-107) 02/15/20 04:11 Carbon Dioxide 28 mmol/L (22-30) 02/15/20 04:11 Anion Gap 4 (5-19) L 02/15/20 04:11 BUN 6 mg/dL (7-20) L 02/15/20 04:11 Creatinine 0.52 mg/dL (0.52-1.25) 02/15/20 04:11 Est GFR ( Amer) > 60 (>60) 02/15/20 04:11 Est GFR (MDRD) Non-Af > 60 (>60) 02/15/20 04:11 Glucose 225 mg/dL (75-110) H 02/15/20 04:11 POC Glucose 232 mg/dL (70-110) H 02/04/20 01:16 Hemoglobin A1c % 7.4 % (4.7-6.0) H 02/05/20 08:47 Lactic Acid 2.1 mmol/L (0.7-2.1) 02/04/20 07:34 Calcium 10.0 mg/dL (8.4-10.2) 02/15/20 04:11 Phosphorus 3.1 mg/dL (2.5-4.5) 02/04/20 10:10 Magnesium 2.2 mg/dL (1.6-2.3) 02/04/20 10:10 Total Bilirubin 0.4 mg/dL (0.2-1.3) 02/15/20 04:11 Direct Bilirubin 0.2 mg/dL (0.0-0.4) 02/15/20 04:11 Neonat Total Bilirubin Not Reportable 02/15/20 04:11 Neonat Direct Bilirubin Not Reportable 02/15/20 04:11 Neonat Indirect Bili Not Reportable 02/15/20 04:11 AST 20 U/L (17-59) 02/15/20 04:11 ALT 11 U/L (<50) 02/15/20 04:11 Alkaline Phosphatase 81 U/L (38-126) 02/15/20 04:11 Ammonia < 8.7 umol/L (9-33) L 02/04/20 10:10 Creatine Kinase 30 U/L (55-170) L 02/04/20 22:11 CK-MB (CK-2) 0.89 ng/mL (<4.55) 02/04/20 22:11 Troponin I < 0.012 ng/mL 02/04/20 22:11 Total Protein 5.5 g/dL (6.3-8.2) L 02/15/20 04:11 Albumin 2.5 g/dL (3.5-5.0) L 02/15/20 04:11 TSH 2.56 uIU/mL (0.47-4.68) 02/04/20 10:10 Free T4 1.18 ng/dL (0.78-2.19) 02/04/20 10:10 Urine Color YELLOW 02/04/20 03:00 Urine Appearance CLEAR 02/04/20 03:00 Urine pH 5.0 (5.0-9.0) 02/04/20 03:00 Ur Specific [place] 1.021 02/04/20 03:00 Urine Protein NEGATIVE mg/dL (NEGATIVE) 02/04/20 03:00 Urine Glucose (UA) NEGATIVE mg/dL (NEGATIVE) 02/04/20 03:00 Urine Ketones NEGATIVE mg/dL (NEGATIVE) 02/04/20 03:00 Urine Blood NEGATIVE (NEGATIVE) 02/04/20 03:00 Urine Nitrite NEGATIVE (NEGATIVE) 02/04/20 03:00 Urine Bilirubin NEGATIVE (NEGATIVE) 02/04/20 03:00 Urine Urobilinogen NEGATIVE mg/dL (<2.0) 02/04/20 03:00 Ur Leukocyte Esterase NEGATIVE (NEGATIVE) 02/04/20 03:00 Urine WBC (Auto) 3 /HPF 02/04/20 03:00 Urine RBC (Auto) 2 /HPF 02/04/20 03:00 U Hyaline Cast (Auto) 1 /LPF 02/04/20 03:00 Squamous Epi Cells Auto 1 /HPF 02/04/20 03:00 Urine Mucus (Auto) RARE /LPF 02/04/20 03:00 Urine Ascorbic Acid 40 (NEGATIVE) H 02/04/20 03:00 Urine Opiates Screen UNCONFIRMED POSITIVE 02/04/20 13:00 Urine Methadone Screen NEGATIVE 02/04/20 13:00 Ur Barbiturates Screen NEGATIVE 02/04/20 13:00 Ur Phencyclidine Scrn NEGATIVE 02/04/20 13:00 Ur Amphetamines Screen NEGATIVE 02/04/20 13:00 U Benzodiazepines Scrn NEGATIVE 02/04/20 13:00 Urine Cocaine Screen NEGATIVE 02/04/20 13:00 U Marijuana (THC) Screen NEGATIVE 02/04/20 13:00 Serum Alcohol < 10 mg/dL (NONE DETECTED) 02/04/20 01:35 Influenza A (RT-PCR) NEGATIVE (NEGATIVE) 02/04/20 08:29 Influenza B (RT-PCR) NEGATIVE (NEGATIVE) 02/04/20 08:29 RSV (RT-PCR) NEGATIVE (NEGATIVE) 02/04/20 08:29 SARS-CoV-2 Rap RNA(RT-PCR) NEGATIVE (NEGATIVE) 02/04/20 08:29 Slides for Path Review SITE SAFETY MANAGER 02/15/20 04:11 02/04/20 02/04/20 02/04/20 01:35 10:10 16:22 CK-MB (CK-2) 0.51 0.81 Troponin I < 0.012 < 0.012 < 0.012 02/04/20 22:11 CK-MB (CK-2) 0.89 Troponin I < 0.012 Impressions: Chest CT 02/04/20 00:00 IMPRESSION: Known right lower lobe and right hilar masses. Patchy bilateral ground-glass opacities which could represent superimposed pneumonia or metastatic lesions. Head CT 02/04/20 02:17 IMPRESSION: Atrophy and chronic small vessel ischemic changes with no acute intracranial abnormality. Chest X-Ray 02/04/20 02:18 IMPRESSION: Worsening right basilar opacity likely worsening pneumonia, this may be postobstructive pneumonia in this patient with prior CT showing right lower lobe mass. Please correlate with patient's prior history and any prior tissue diagnosis. Stroke Is this a Stroke Patient?: No Acute Heart Failure Is this a Heart Failure Patient?: No
[2020-02-26 02:00] VITALS: BP 99/69
[2020-02-26] MEDS: HEPARIN SOD (PORCINE) 5,000 UNIT/ML 1 ML VIAL SUBCUT SCH (05:48)
[2020-02-26] MEDS: CHOLECALCIFEROL (D3) 1,000 UNIT (25 MCG) TABLET PO SCH (09:09)
[2020-02-26] MEDS: ASCORBIC ACID 500 MG TABLET PO SCH (09:09)
[2020-02-26] MEDS: TAMSULOSIN HCL 0.4 MG CAP.SR.24H PO SCH (09:10)
[2020-02-26] MEDS: CITALOPRAM HYDROBROMIDE 20 MG TABLET PO SCH (09:10)
[2020-02-26] MEDS: FINASTERIDE 5 MG TABLET PO SCH (09:10)
[2020-02-26] MEDS: CLOPIDOGREL BISULFATE 75 MG TABLET PO SCH (09:10)
== END 2020-02-26 09:44 | DRG 193 ==
LOC: ER 00:53 → EH 07:23 → 4N 15:46
PROVIDERS: ADMIT Internal Medicine; ATTEND Internal Medicine
DX: J18.9 Pneumonia, unspecified organism (principal); G93.41 Metabolic encephalopathy; C34.2 Malignant neoplasm of middle lobe, bronchus or lung; Z66 Do not resuscitate; Z20.822 Contact with and (suspected) exposure to COVID-19; E11.42 Type 2 diabetes mellitus with diabetic polyneuropathy; E86.0 Dehydration; R13.10 Dysphagia, unspecified; I25.10 Atherosclerotic heart disease of native coronary artery without angina pectoris; E78.5 Hyperlipidemia, unspecified; I10 Essential (primary) hypertension; F32.9 Major depressive disorder, single episode, unspecified; I25.2 Old myocardial infarction; Z79.4 Long term (current) use of insulin; Z95.5 Presence of coronary angioplasty implant and graft; Z79.899 Other long term (current) drug therapy; Z87.891 Personal history of nicotine dependence; Z79.02 Long term (current) use of antithrombotics/antiplatelets; Z88.6 Allergy status to analgesic agent
CPT/HCPCS: 36415; 70450; 71045; 71260; 80053; 80307; 81001; 82140; 82550; 82553; 82803; 82962; 83036; 83605; 83735; 84100; 84439; 84443; 84484; 85025; 85610; 85730; 87040; 87077; 87086; 87150; 87186; 93005; 93010; 96365; 99285; 0241U; C9803; J0696; J1642; J1644; J1956; J7030; J7120